=== PATIENT | female | born 1960 | race Caucasian/White ===

== ENCOUNTER → 2022-09-13 13:41 | Outpatient (CLI) | payer OTHER, SELFPAY ==
--- NOTE | 2022-09-13 | DI.MRI.S_ITS ---
PROCEDURE: MR BRAIN (IAC) WWO CON INDICATIONS: Sensorineural hearing loss, bilateral TECHNIQUE: Noncontrast sagittal T1 spin echo, axial FLAIR, axial gradient echo, axial diffusion and ADC through the brain. Axial thin-slice 3D CISS, coronal TruFISP, axial T1 spin echo with fat saturation through the internal auditory canals. After the administration of contrast, thin slice axial and coronal T1 spin echo with fat saturation through the internal auditory canals, and axial and coronal and sagittal T1 spin echo with fat saturation through the brain. COMPARISON: None. FINDINGS: Image quality: Excellent. Cerebellopontine angles: No cerebellopontine angle masses. Inner ear structures appear normally formed. No suspicious enhancement in the internal auditory canal or along the course of the 7th cranial nerve. CSF spaces: Ventricles are normal in size and shape. No extra-axial fluid collections. Basal cisterns are patent. Brain: No intracranial bleeds or mass effects. Dumont-white matter interface is intact. No abnormal intracranial enhancement. Diffusion weighted images demonstrate no acute ischemic insults. Brainstem appears normal. Normal intravascular flow voids are present. Skull and face: Calvarial marrow signal is normal. Orbits appear normal. Incidental note is made of hyperostosis frontalis. This is not considered to be pathologic in a woman of this age. Sinuses: Sinuses and mastoids are clear. IMPRESSION: No significant abnormality is seen. Specifically, no masses or abnormal enhancement are seen within the cerebellopontine angle cisterns or within the internal auditory canals. Dictated by: Anjel Carlos M.D. on 09/13/2022 at 15:07 Approved by: Anjel Carlos M.D. on 09/13/2022 at 15:09
== END ==
PROVIDERS: Family Provider Family Medicine Geriatric Medicine; PCP Physician Assistant Medical; Referring Provider Otolaryngology; Visit Provider Otolaryngology
DX: H90.3 Sensorineural hearing loss, bilateral (principal)
CPT/HCPCS: 70553

== ENCOUNTER → 2023-12-10 09:06 | Outpatient (CLI) | payer MEDICARE, OTHER, SELFPAY ==
[2023-12-10 10:27] LABS: Add Manual Diff / Slide Review NO; Basophils Absolute Auto 100 /uL (0-100); Basophils Percent Auto 0.9 % (0-2); Eosinophils Absolute Auto 400 /uL (0-450); Eosinophils Percent Auto 6.7 % (2-4); Hematocrit 38.9 % (36-46); Hemoglobin 13.7 g/dL (12.0-16.0); Lymphocytes Absolute Auto 1500 /uL (1100-4500); Lymphocytes Percent Auto 23.4 % (25-40); Mean Corpuscular HGB Conc 35.2 % (30-36); Mean Corpuscular Hemoglobin 30.2 PG (26-34); Monocytes Absolute Auto 600 /uL (0-900); Monocytes Percent Auto 9.4 % (3-14); Neutrophils Absolute Auto 3900 /uL (1500-7000); Neutrophils Percent Auto 59.6 % (50-75); Platelet Count 290 X10^3/uL (150-400); Red Blood Cell Count 4.53 X10^6/uL (4.0-5.2); Red Cell Distribution Width 12.6 % (11.6-14.8); White Blood Cell Count 6.6 X10^3/uL (4.5-11.0)
[2023-12-10 10:48] LABS: Hemoglobin A1C% w Est Avg Glu 6.4 % (4.0-6.0)
[2023-12-10 11:08] LABS: Alanine Aminotransferase 27 IU/L (<35); Albumin 4.4 g/dL (3.5-5.0); Albumin Globulin Ratio 1.6 (1.0-2.8); Alkaline Phosphatase 90 U/L (38-126); Aspartate Aminotransferase 25 IU/L (14-36); BUN Creatinine Ratio 17.7 (6-22); Bilirubin Total 0.7 mg/dL (0.2-1.3); Blood Urea Nitrogen 14 mg/dL (7-17); Carbon Dioxide 30 mmol/L (22-32); Chloride 101 mmol/L (98-107); Cholesterol 208 mg/dL (140-199); Estimated Glomerular Filt Rate > 60 mL/min (>60); Globulin 2.8 g/dL (1.7-4.1); Glucose 123 mg/dL (80-110); HDL Cholesterol 55 mg/dL (40-60); HEMOLYSIS < 15 (0-50); LDL Cholesterol Calculated 123 mg/dL (<100); Potassium 3.7 mmol/L (3.4-5.1); Sodium 137 mmol/L (137-145); Total Protein 7.2 g/dL (6.3-8.2); Triglycerides 149 mg/dL (35-150)
[2023-12-10 11:45] LABS: HIV 1 & 2 Ab/Ag 4th Gen Combo NEGATIVE (NEGATIVE); Hep C Virus Ab w/Reflex Quant NEGATIVE s/c (NEGATIVE)
== END ==
PROVIDERS: Family Provider Family Medicine Geriatric Medicine; PCP Family Medicine; Referring Provider Family Medicine; Visit Provider Family Medicine
DX: S76.309A Unspecified injury of muscle, fascia and tendon of the posterior muscle group at thigh level, unspecified thigh, initial encounter (principal); I10 Essential (primary) hypertension; R73.01 Impaired fasting glucose
CPT/HCPCS: 36415; 80053; 80061; 83036; 85025; 86803; 87389

== ENCOUNTER 2024-02-27 07:30 | Outpatient (RCR) | payer MEDICARE, OTHER, SELFPAY ==
--- NOTE | 2024-01-22 15:50 | PT.OIE ---
Current Diagnoses Unspecified injury of muscle, fascia and tendon of the posterior muscle group at thigh level, unspecified thigh, subsequent encounter (01/22/24) Past Medical History (Last Updated 01/17/24 @ 18:50 by Madhuri Diaz) Benign essential HTN Foot pain (~1999) Fracture (~2017) Hearing loss (~2022) History of DVT (deep vein thrombosis) IFG (impaired fasting glucose) Vaginal atrophy (~2022) Vision disorder Past Surgical History (Last Updated 01/17/24 @ 18:50 by Madhuri Diaz) Anesthesia History of knee surgery (~2010) Schatzki's ring (~2012) Status post left partial knee replacement (~2015) Status post right partial knee replacement (~2011) Visit Care Team Role Provider Type Francesca Pastor MD Family Provider Physician Specialty: Family Practice Address: [address], [facility] Email: [email or web address] Jayson Weldon DO Attending Provider Physician Primary Care Provider Referring Provider Specialty: [facility] Address: [address] [place] [address], [address], [facility] Email: [email or web address] Initial Evaluation PT-OP-A Visit Information Start: 01/22/24 07:27 Freq: Status: Active Protocol: Document 01/22/24 08:21 NM (Rec: 01/22/24 09:05 NM [id number]) Out-Patient Physical Therapy Visit Information Visit Information Visit Type Initial Evaluation Visit Note KX after 19 visits Visit Start Time 08:20 Visit Stop Time 09:00 Visit Number 1 Evaluation Information Evaluation Date 01/22/24 PT-OP-B Current Condition Start: 01/22/24 07:27 Freq: Status: Active Protocol: Document 01/22/24 08:21 NM (Rec: 01/22/24 09:05 NM [id number]) Current Condition History of Current Condition Onset Date couple of months Current Complaints pain, mobility History of Current Condition Pt reports pain in R posterior leg from buttock to knee. She reports that it disturbs her sleep, worse with sitting and feels tight. Worse with bending, reaching forward to floor e.g stretching, going upstairs, transitioning from sit>stand (worse with flexion) . Sleeps with a knee pillow. Pt recently moved from Saturday, in , but the pain started after that point. Pt reports back pain with walking (1-1.5 mi) more L sided than R. Denies numbness or tingling. Does not bother her when she walks. Pt reports that the pain is largely worse when sedentary, but improves with movement. Sleep is the most annoying (e. g. rolling over), same equally no matter which side. Pt reports that the pain has not stopped her from doing anything, but it is there. Pt has been trying to stretch (e. g counter top stretch in various positions), which feels better when she does the exercises but it does not make the pain go away; she performs these first in the morning. PMH of high blood pressure, but takes medication and reports well managed. Prior Treatments and Tests Has had PT for other conditions: partial knee replacements Treatment Goals Patient/Caregiver Goals make the pain go away PT-OP-C Subjective Start: 01/22/24 07:27 Freq: Status: Active Protocol: Document 01/22/24 08:21 NM (Rec: 01/22/24 09:05 NM [id number]) OP-PT Subjective Patient Comments Patient Comments Pt agrees to participate in evaluation Patient Questionnaires Lower Extremity Functional Scale LEFS Score 48/80 OP-PT Pain Assessment Location R thigh Pain Location Details buttock>knee Intensity 5 Scale Used Numeric (0 - 10) Description Sharp,Tightness Description- Other shortened Frequency Frequent Pain Duration 20 minutes, better with movement Radiating Location no variation Pain Aggravating Factors Position,Changing Position, Sitting,Stair Climbing Pain Alleviating Factors Heat Other Pain Alleviating Factors moving PT-OP-E Functional Tests Start: 01/22/24 07:27 Freq: Status: Active Protocol: Document 01/22/24 08:21 NM (Rec: 01/22/24 10:21 NM [id number]) Functional Tests Five Times Sit to Stand Test Score 17.9 seconds Comments reports pulling in HS after 3rd rep, speed decreases Other Forward Trunk Flexion Test Name of Test measured finger tip to floor Score 5.5 Comment reports pulling in hamstrings PT-OP-F Manual Assessment Start: 01/22/24 07:27 Freq: Status: Active Protocol: Document 01/22/24 08:21 NM (Rec: 01/22/24 09:05 NM [id number]) Manual Assessments Soft Tissue Assessment Soft Tissue Mobility Assessment AROM knee flex, passive knee flexion with HS Joint Mobility Assessment Joint Mobility Assessment Full hip mobility, slight limitations in trunk AROM PT-OP-G Mobility & Gait Start: 01/22/24 07:27 Freq: Status: Active Protocol: Document 01/22/24 08:21 NM (Rec: 01/22/24 09:05 NM [id number]) OP Gait Assessment Gait Distance (Feet) 200 Gait Deviations General Gait Pattern Antalgic Comments Gait Comments Slight antalgic gait, less stance time on RLE, limitations in R TKE Stair Climbing Evaluation Technique/Endurance Stair Climbing Technique Step Over Step Number of Steps Climbed 4 Stair Climbing Set # Repetitions (reps) 2 Comments Stair Climbing Comments Reproduces hamstring pain with ascent in muscle belly PT-OP-J Posture/Palpation/Skin Start: 01/22/24 07:27 Freq: Status: Active Protocol: Document 01/22/24 08:21 NM (Rec: 01/22/24 09:05 NM [id number]) Palpation Assessment Location R thigh Palpation Details tenderness in glute/piriformis no tenderness along hamstring muscle belly, origin, or insertion PT-OP-K Range of Motion Start: 01/22/24 07:27 Freq: Status: Active Protocol: Document 01/22/24 08:21 NM (Rec: 01/22/24 09:05 NM [id number]) Lumbar Spine Range of Motion Lumbar Spine Active Percentage Flexion 90 Extension 50 Rotation Left 100 Rotation Right 100 Lateral Flexion Left 50 Lateral Flexion Right 50 Comments L low back w/ L lateral flexion, R rotation down R leg Hip Goniometric Range of Motion Hip Right Internal Rotation 20 External Rotation 30 Left Flexion w/Knee Flexed 100 Internal Rotation 28 External Rotation 30 Knee Goniometric Range of Motion Knee Right Flexion Active (degrees) 121 Extension Active (degrees) 2 Extension Passive (degrees) 0 Comments HS 145 deg Left Flexion Active (degrees) 125 Extension Active (degrees) 0 Comments HS 155 deg PT-OP-L Special Tests Start: 01/22/24 07:27 Freq: Status: Active Protocol: Document 01/22/24 08:21 NM (Rec: 01/22/24 09:05 NM [id number]) Special Tests Lumbar Spine Special Tests Straight Leg Raise Test Results - Comments worse w/ head movement Slump Test Results - Comments worse w/ head movement Gan/quadrant Test Results + Comments L Hip Special Tests SUKHWINDER Test Results + Comments anterior groin PT-OP-M Strength Start: 01/22/24 07:27 Freq: Status: Active Protocol: Document 01/22/24 08:21 NM (Rec: 01/22/24 09:05 NM [id number]) Trunk Strength Trunk Manual Muscle Testing Flexion 4 Good Extension 4 Good Rotation Left 4 Good Rotation Right 4 Good Lateral Flexion Left 4 Good Lateral Flexion Right 4 Good Comments R rot painful Hip Strength Hip Manual Muscle Testing Right Flexion (L2) 4 Good Extension (S1) 4- Good- Abduction 4 Good Adduction 4 Good External Rotation 4 Good Internal Rotation 4 Good Left Flexion (L2) 4 Good Extension (S1) 4 Good Abduction 4 Good Adduction 4 Good External Rotation 4 Good Internal Rotation 4 Good Knee Strength Knee Manual Muscle Testing Right Flexion (S2) 4- Good- Extension (L3) 4 Good Comments prone HS 4-/5 and painful; no pain reproduced in sitting Left Flexion (S2) 4 Good Extension (L3) 4 Good PT-OP-T Assessment and Plan Start: 01/22/24 07:27 Freq: Status: Active Protocol: Document 01/22/24 08:21 NM (Rec: 01/22/24 09:05 NM [id number]) Physical Therapy Assessment Rehab Potential Rehabilitation Potential Good Evaluation Complexity Number of Personal Factors/Comorbidities 1-2 Number of Body Systems Impaired 1-2 Clinical Presentation at Evaluation Stable Impairments Impairments Activity Tolerance,Balance, Functional Activities, Functional Mobility,Gait, Integument,Pain,Posture,ROM, Soft Tissue Mobility,Strength, Transfers Other Concerns Barriers to Rehabilitation Pt has had B knees previously partially replaced several years ago. 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 Goals Five Impairment stairs Nursing Home Goal (LTG) Pt will report no limitation in ability to perform stairs due to R thigh pain in order to demonstrate improved functional mobility LTG Duration 12 weeks Four Impairment ROM Bottle Capper Goal (LTG) Pt will improve R knee extension to at least 0 deg in order to demonstrate improved hamstring length for gait, comfort, and QOL LTG Duration 12 weeks Three Impairment squats Bottle Capper Goal (LTG) Pt will be able to perform at least 10 bilateral squats or 5x STS test without pain in order to demonstrate improvement in symptoms, activity tolerance, and functional mobility for ADLs/ recreational tasks LTG Duration 12 weeks Two Impairment activity tolerance Impairment LEFS 48/80 Bottle Capper Goal (LTG) Pt will improve LEFS score >57 /80 (1 MCID) in order to demonstrate improved activity tolerance and symptom management LTG Duration 12 weeks One Impairment sleep Impairment reports pain with sleeping, rolling over in bed Short Term Goal (STG) Pt will report no pain in her R thigh when rolling over in bed at least 4/7 days per week in order to improve sleep quality and QOL STG Duration 6 weeks Nursing Home Goal (LTG) Pt will report no disruption to her sleep due to R thigh pain at least 4/7 days per week in order to improve sleep quality/QOL and improved symptom management LTG Duration 12 weeks Assessment Summary Assessment Pt is a 63 y.o. female presenting with subacute R hamstring pain for several months with unknown mechanism of injury. Her pain is primarily along the R hamstring muscle belly. She has attempted stretching without success in symptom reduction. Pt's symptoms are reproduced with active knee flexion, resisted knee flexion in prone, ascending stairs, and sit to stand (flexion portion). Pt does not have pain with resisted knee flexion when seated. She is not tender to palpation at the hamstring proximally or distally, only at the glute. She is currently lakcing B hamstring length and has small limitations in R knee extension, indicating muscle tightness. Pt's symptoms are consistent with a hamstring strain. Pt also has concurrent intermittent low back pain that is likely correlated; she has painful limitations in lumbar ROM and with resisted motions, in addition to pain reproduction with 3D testing. PT educated pt on exam findings and plan of care, creating treatment goals with pt. Pt would benefit from skilled PT for symptom management and progressive strengthening in order to improve activity tolerance and return to PLOF. Physical Therapy Plan Frequency and Duration Frequency of Treatment 1-2x/wk Duration of treatment (weeks) 12 Plan of Care Start Date 01/22/24 Plan of Care End Date 04/17/24 Therapeutic Interventions Therapeutic Interventions Balance Training,Gait Training ,Home Exercise Program,Joint Mobilizations,Manual Therapy, Neuromuscular Re-education, Orthotic/Prosthetic Management ,Patient/Caregiver Education, Self-Care/Home Management, Sensory Integration,Soft Tissue Mobilization,Taping, Therapeutic Activities, Therapeutic Exercises Modalities Cold Pack/Ice Massage,Electric Stimulation,Hot Packs, Ultrasound Next Visit Focus/Plan Next Note Type Treatment Note Next Visit Plan Education on log rolling, symptom management Modalities for pain management ; trial ultrasound STM: HS as needed (glute if needed too), myofascial release Flexibility: Ishan stretch, G /S stretch, hip ER stretch into flex if tolerated, AAROM/ AROM hip/knee flex, restore full hip flex (ant and post glides Strength: low DL bridge (toes elevated if able) > progress height (then add band for abd, ball for add, hip thrust), s/ l hip abd, calf raise, HS isometrics in seated if needed , SLR, HSC antigravity, hip ext antigravity, wall slides POC: hip/glute strengthening No stretching HS but nerve glides ok
--- NOTE | 2024-01-22 15:51 | PT.OPPOC ---
Physical, Occupational & Speech Therapy At [facility] Current Diagnoses Unspecified injury of muscle, fascia and tendon of the posterior muscle group at thigh level, unspecified thigh, subsequent encounter (01/22/24) Visit Care Team Role Provider Type Francesca Pastor MD Family Provider Physician Specialty: Family Practice Address: [address], [place], [address] Email: [email or web address] Jayson Weldon DO Attending Provider Physician Primary Care Provider Referring Provider Specialty: [facility] Address: [address] [place] [address], [facility] [address], [place], [address] Email: [email or web address] Plan Of Care PT-OP-T Assessment and Plan Start: 01/22/24 07:27 Freq: Status: Active Protocol: Document 01/22/24 08:21 NM (Rec: 01/22/24 09:05 NM [id number]) Physical Therapy Assessment Rehab Potential Rehabilitation Potential Good Evaluation Complexity Number of Personal Factors/Comorbidities 1-2 Number of Body Systems Impaired 1-2 Clinical Presentation at Evaluation Stable Impairments Impairments Activity Tolerance,Balance, Functional Activities, Functional Mobility,Gait, Integument,Pain,Posture,ROM, Soft Tissue Mobility,Strength, Transfers Other Concerns Barriers to Rehabilitation Pt has had B knees previously partially replaced several years ago. 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 Goals Five Impairment stairs Instrument Installer Goal (LTG) Pt will report no limitation in ability to perform stairs due to R thigh pain in order to demonstrate improved functional mobility LTG Duration 12 weeks Four Impairment ROM Alf Goal (LTG) Pt will improve R knee extension to at least 0 deg in order to demonstrate improved hamstring length for gait, comfort, and QOL LTG Duration 12 weeks Three Impairment squats Alf Goal (LTG) Pt will be able to perform at least 10 bilateral squats or 5x STS test without pain in order to demonstrate improvement in symptoms, activity tolerance, and functional mobility for ADLs/ recreational tasks LTG Duration 12 weeks Two Impairment activity tolerance Impairment LEFS 48/80 Alf Goal (LTG) Pt will improve LEFS score >57 /80 (1 MCID) in order to demonstrate improved activity tolerance and symptom management LTG Duration 12 weeks One Impairment sleep Impairment reports pain with sleeping, rolling over in bed Short Term Goal (STG) Pt will report no pain in her R thigh when rolling over in bed at least 4/7 days per week in order to improve sleep quality and QOL STG Duration 6 weeks Alf Goal (LTG) Pt will report no disruption to her sleep due to R thigh pain at least 4/7 days per week in order to improve sleep quality/QOL and improved symptom management LTG Duration 12 weeks Assessment Summary Assessment Pt is a 63 y.o. female presenting with subacute R hamstring pain for several months with unknown mechanism of injury. Her pain is primarily along the R hamstring muscle belly. She has attempted stretching without success in symptom reduction. Pt's symptoms are reproduced with active knee flexion, resisted knee flexion in prone, ascending stairs, and sit to stand (flexion portion). Pt does not have pain with resisted knee flexion when seated. She is not tender to palpation at the hamstring proximally or distally, only at the glute. She is currently lakcing B hamstring length and has small limitations in R knee extension, indicating muscle tightness. Pt's symptoms are consistent with a hamstring strain. Pt also has concurrent intermittent low back pain that is likely correlated; she has painful limitations in lumbar ROM and with resisted motions, in addition to pain reproduction with 3D testing. PT educated pt on exam findings and plan of care, creating treatment goals with pt. Pt would benefit from skilled PT for symptom management and progressive strengthening in order to improve activity tolerance and return to PLOF. Physical Therapy Plan Frequency and Duration Frequency of Treatment 1-2x/wk Duration of treatment (weeks) 12 Plan of Care Start Date 01/22/24 Plan of Care End Date 04/17/24 Therapeutic Interventions Therapeutic Interventions Balance Training,Gait Training ,Home Exercise Program,Joint Mobilizations,Manual Therapy, Neuromuscular Re-education, Orthotic/Prosthetic Management ,Patient/Caregiver Education, Self-Care/Home Management, Sensory Integration,Soft Tissue Mobilization,Taping, Therapeutic Activities, Therapeutic Exercises Modalities Cold Pack/Ice Massage,Electric Stimulation,Hot Packs, Ultrasound Next Visit Focus/Plan Next Note Type Treatment Note Next Visit Plan Education on log rolling, symptom management Modalities for pain management ; trial ultrasound STM: HS as needed (glute if needed too), myofascial release Flexibility: Ishan stretch, G /S stretch, hip ER stretch into flex if tolerated, AAROM/ AROM hip/knee flex, restore full hip flex (ant and post glides Strength: low DL bridge (toes elevated if able) > progress height (then add band for abd, ball for add, hip thrust), s/ l hip abd, calf raise, HS isometrics in seated if needed , SLR, HSC antigravity, hip ext antigravity, wall slides POC: hip/glute strengthening No stretching HS but nerve glides ok Plan of Care Dates Plan of Care Start Date 01/22/24 Plan of Care End Date 04/17/24 Electronically Signed by: Janice Mckenzie, PT 01/23/24 1022 If you are in agreement with this Plan of Care, please return a signed and dated copy. I have reviewed this Plan of Care and certify that the skilled therapy services above are required to meet the patient?s needs. Physician Signature Date Printed Name and Credentials Clinical Instructor Signature Printed Name and Credentials
--- NOTE | 2024-01-24 13:11 | PT.OTN ---
Current Diagnoses Unspecified injury of muscle, fascia and tendon of the posterior muscle group at thigh level, unspecified thigh, subsequent encounter (01/24/24) Physical Therapy Treatment Note PT-OP-A Visit Information Start: 01/22/24 07:27 Freq: Status: Active Protocol: Document 01/24/24 09:05 NM (Rec: 01/24/24 09:49 NM [id number]) Out-Patient Physical Therapy Visit Information Visit Information Visit Type Treatment Note Visit Note KX after 19 visits Visit Start Time 09:03 Visit Stop Time 09:45 Visit Number 2 Evaluation Information Evaluation Date 01/22/24 PT-OP-B Current Condition Start: 01/22/24 07:27 Freq: Status: Active Protocol: Document 01/22/24 08:21 NM (Rec: 01/22/24 09:05 NM [id number]) Current Condition History of Current Condition Onset Date couple of months Current Complaints pain, mobility History of Current Condition Pt reports pain in R posterior leg from buttock to knee. She reports that it disturbs her sleep, worse with sitting and feels tight. Worse with bending, reaching forward to floor e.g stretching, going upstairs, transitioning from sit>stand (worse with flexion) . Sleeps with a knee pillow. Pt recently moved from [place], in , but the pain started after that point. Pt reports back pain with walking (1-1.5 mi) more L sided than R. Denies numbness or tingling. Does not bother her when she walks. Pt reports that the pain is largely worse when sedentary, but improves with movement. Sleep is the most annoying (e. g. rolling over), same equally no matter which side. Pt reports that the pain has not stopped her from doing anything, but it is there. Pt has been trying to stretch (e. g counter top stretch in various positions), which feels better when she does the exercises but it does not make the pain go away; she performs these first in the morning. PMH of high blood pressure, but takes medication and reports well managed. Prior Treatments and Tests Has had PT for other conditions: partial knee replacements Treatment Goals Patient/Caregiver Goals make the pain go away PT-OP-C Subjective Start: 01/22/24 07:27 Freq: Status: Active Protocol: Document 01/24/24 09:05 NM (Rec: 01/24/24 09:49 NM [id number]) OP-PT Subjective Patient Comments Patient Comments Pt reports 4/10 hamstring pain , 7/10 last night. Did a cooking class yesterday with a lot of standing, which was hard. No increased pain or soreness after PT-OP-E Functional Tests Start: 01/22/24 07:27 Freq: Status: Active Protocol: Document 01/22/24 08:21 NM (Rec: 01/22/24 10:21 NM [id number]) Functional Tests Five Times Sit to Stand Test Score 17.9 seconds Comments reports pulling in HS after 3rd rep, speed decreases Other Forward Trunk Flexion Test Name of Test measured finger tip to floor Score 5.5 Comment reports pulling in hamstrings PT-OP-F Manual Assessment Start: 01/22/24 07:27 Freq: Status: Active Protocol: Document 01/22/24 08:21 NM (Rec: 01/22/24 09:05 NM [id number]) Manual Assessments Soft Tissue Assessment Soft Tissue Mobility Assessment AROM knee flex, passive knee flexion with HS Joint Mobility Assessment Joint Mobility Assessment Full hip mobility, slight limitations in trunk AROM PT-OP-G Mobility & Gait Start: 01/22/24 07:27 Freq: Status: Active Protocol: Document 01/22/24 08:21 NM (Rec: 01/22/24 09:05 NM [id number]) OP Gait Assessment Gait Distance (Feet) 200 Gait Deviations General Gait Pattern Antalgic Comments Gait Comments Slight antalgic gait, less stance time on RLE, limitations in R TKE Stair Climbing Evaluation Technique/Endurance Stair Climbing Technique Step Over Step Number of Steps Climbed 4 Stair Climbing Set # Repetitions (reps) 2 Comments Stair Climbing Comments Reproduces hamstring pain with ascent in muscle belly PT-OP-J Posture/Palpation/Skin Start: 01/22/24 07:27 Freq: Status: Active Protocol: Document 01/22/24 08:21 NM (Rec: 01/22/24 09:05 NM [id number]) Palpation Assessment Location R thigh Palpation Details tenderness in glute/piriformis no tenderness along hamstring muscle belly, origin, or insertion PT-OP-K Range of Motion Start: 01/22/24 07:27 Freq: Status: Active Protocol: Document 01/22/24 08:21 NM (Rec: 01/22/24 09:05 NM [id number]) Lumbar Spine Range of Motion Lumbar Spine Active Percentage Flexion 90 Extension 50 Rotation Left 100 Rotation Right 100 Lateral Flexion Left 50 Lateral Flexion Right 50 Comments L low back w/ L lateral flexion, R rotation down R leg Hip Goniometric Range of Motion Hip Right Internal Rotation 20 External Rotation 30 Left Flexion w/Knee Flexed 100 Internal Rotation 28 External Rotation 30 Knee Goniometric Range of Motion Knee Right Flexion Active (degrees) 121 Extension Active (degrees) 2 Extension Passive (degrees) 0 Comments HS 145 deg Left Flexion Active (degrees) 125 Extension Active (degrees) 0 Comments HS 155 deg PT-OP-L Special Tests Start: 01/22/24 07:27 Freq: Status: Active Protocol: Document 01/22/24 08:21 NM (Rec: 01/22/24 09:05 NM [id number]) Special Tests Lumbar Spine Special Tests Straight Leg Raise Test Results - Comments worse w/ head movement Slump Test Results - Comments worse w/ head movement Gan/quadrant Test Results + Comments L Hip Special Tests SUKHWINDER Test Results + Comments anterior groin PT-OP-M Strength Start: 01/22/24 07:27 Freq: Status: Active Protocol: Document 01/22/24 08:21 NM (Rec: 01/22/24 09:05 NM [id number]) Trunk Strength Trunk Manual Muscle Testing Flexion 4 Good Extension 4 Good Rotation Left 4 Good Rotation Right 4 Good Lateral Flexion Left 4 Good Lateral Flexion Right 4 Good Comments R rot painful Hip Strength Hip Manual Muscle Testing Right Flexion (L2) 4 Good Extension (S1) 4- Good- Abduction 4 Good Adduction 4 Good External Rotation 4 Good Internal Rotation 4 Good Left Flexion (L2) 4 Good Extension (S1) 4 Good Abduction 4 Good Adduction 4 Good External Rotation 4 Good Internal Rotation 4 Good Knee Strength Knee Manual Muscle Testing Right Flexion (S2) 4- Good- Extension (L3) 4 Good Comments prone HS 4-/5 and painful; no pain reproduced in sitting Left Flexion (S2) 4 Good Extension (L3) 4 Good PT-OP-Q Treatments Start: 01/22/24 07:27 Freq: Status: Active Protocol: Document 01/24/24 09:05 NM (Rec: 01/24/24 09:49 NM [id number]) Therapeutic Exercises Supine Exercises stretching Supine Exercise Name 1. figure 4 w/ knee flex, 2. ishan Side bilateral Reps/Minutes 1x60 ea Comments reports good stretch; tight rectus femoris bilaterally heel slide Supine Exercise Name for knee flexion AROM Side right Resistance AROM Reps/Minutes 2x10 Comments feels working, no pain with AROM bridge Supine Exercise Name DL bridge with toes elevated Reps/Minutes 3x10 Comments started low height and progressed ROM; edu on hold Prone Exercises hip extension Side bilateral Equipment Used feet off table Reps/Minutes 2x10 Comments min pain in R HS so d/c for now; harder Sidelying Exercises hip abduction Side bilateral Resistance AROM Reps/Minutes 2x10 with 1 pause Comments R fatiguing, pain free Therapeutic Activity Therapeutic Activity floor transfer Reps/Minutes 1 rep Comments LLE leading from 07/30 kneel for pt to be able to perform exercises at home, performed without increased pain in R hamstring with LLE leading log roll Reps/Minutes 4 reps, including rolling and transfer to EOB Comments Educated on use of pillow to maintain knee/hip/shoulder alignment. Performed several repetitions, minimal cueing to maintain alignment of trunk/ hips and limit segmental rolling Manual Therapy Treatment Soft Tissue Mobilization R hamstring Body Location hamstring and glute/piriformis Mobilization Type Oscillations,Rolling,Strumming Intensity/Depth Moderate Body Position Prone Comments Hips and shins on pillows. Good response to moderate soft tissue mobilization of hamstrings, reports no increased discomfort or tenderness at hamstrings, parish with proximal <> distal mobiliztion of muscle belly. Tenderness reported at R glutes/piriformis, improved/ lessened with superficial soft tissue mobilization to area Self-Care/Home Management Treatment Education Patient Education Home Exercise Program Other Education HEP: heel slides supine AROM, supine hip ER stretch, sidelying hip abduction, glute bridge with progressions Educated on leading with LLE on stairs temporarily for symptom reduction on ascending stairs PT-OP-T Assessment and Plan Start: 01/22/24 07:27 Freq: Status: Active Protocol: Document 01/24/24 09:05 NM (Rec: 01/24/24 09:49 NM [id number]) Physical Therapy Assessment Goals Five Impairment stairs Precipitation Equipment Tender Goal (LTG) Pt will report no limitation in ability to perform stairs due to R thigh pain in order to demonstrate improved functional mobility LTG Duration 12 weeks Four Impairment ROM Fdc Goal (LTG) Pt will improve R knee extension to at least 0 deg in order to demonstrate improved hamstring length for gait, comfort, and QOL LTG Duration 12 weeks Three Impairment squats Fdc Goal (LTG) Pt will be able to perform at least 10 bilateral squats or 5x STS test without pain in order to demonstrate improvement in symptoms, activity tolerance, and functional mobility for ADLs/ recreational tasks LTG Duration 12 weeks Two Impairment activity tolerance Impairment LEFS 48/80 Fdc Goal (LTG) Pt will improve LEFS score >57 /80 (1 MCID) in order to demonstrate improved activity tolerance and symptom management LTG Duration 12 weeks One Impairment sleep Impairment reports pain with sleeping, rolling over in bed Short Term Goal (STG) Pt will report no pain in her R thigh when rolling over in bed at least 4/7 days per week in order to improve sleep quality and QOL STG Duration 6 weeks Precipitation Equipment Tender Goal (LTG) Pt will report no disruption to her sleep due to R thigh pain at least 4/7 days per week in order to improve sleep quality/QOL and improved symptom management LTG Duration 12 weeks Assessment Summary Assessment Pt tolerated session well, no increased R hamstring pain. Pt has good tolerance for hamstring and glute soft tissue mobilization, reporting good feedback for pain reduction. Initiated knee flexion AROM and isolated hamstring strengthening. Trialed elongated hip extension, but pt reports increased symptoms at knee. Educated on log roll, sleeping position, and how to perform floor transfers without RLE stress as pt needs for ADLs. Pt would benefit from skilled PT for progressive R hamstring mobility and strengthening in order to improve symptom management and improve ADL/ activity tolerance and QOL. Physical Therapy Plan Frequency and Duration Frequency of Treatment 1-2x/wk Duration of treatment (weeks) 12 Plan of Care Start Date 01/22/24 Plan of Care End Date 04/17/24 Therapeutic Interventions Therapeutic Interventions Balance Training,Gait Training ,Home Exercise Program,Joint Mobilizations,Manual Therapy, Neuromuscular Re-education, Orthotic/Prosthetic Management ,Patient/Caregiver Education, Self-Care/Home Management, Sensory Integration,Soft Tissue Mobilization,Taping, Therapeutic Activities, Therapeutic Exercises Modalities Cold Pack/Ice Massage,Electric Stimulation,Hot Packs, Ultrasound Next Visit Focus/Plan Next Note Type Treatment Note Next Visit Plan Modalities for pain management ; trial ultrasound if needed STM: HS as needed (glute if needed too), myofascial release Flexibility: Ishan stretch, G /S stretch, hip ER stretch into flex if tolerated, AAROM/ AROM hip/knee flex, restore full hip flex (ant and post glides Strength: DL bridge (toes elevated if able) > progress height (trial isometric if neded,then add band for abd, ball for add, hip thrust), s/l hip abd, calf raise, SLR, HSC antigravity, hip ext antigravity, wall slides POC: hip/glute strengthening No stretching HS but nerve glides ok
--- NOTE | 2024-01-27 10:31 | PT.OTN ---
Current Diagnoses Unspecified injury of muscle, fascia and tendon of the posterior muscle group at thigh level, unspecified thigh, subsequent encounter (01/27/24) Physical Therapy Treatment Note PT-OP-A Visit Information Start: 01/22/24 07:27 Freq: Status: Active Protocol: Document 01/27/24 09:49 NM (Rec: 01/27/24 10:31 NM [id number]) Out-Patient Physical Therapy Visit Information Visit Information Visit Type Treatment Note Visit Note KX after 19 visits Visit Start Time 09:52 Visit Stop Time 10:30 Visit Number 3 Evaluation Information Evaluation Date 01/22/24 PT-OP-B Current Condition Start: 01/22/24 07:27 Freq: Status: Active Protocol: Document 01/22/24 08:21 NM (Rec: 01/22/24 09:05 NM [id number]) Current Condition History of Current Condition Onset Date couple of months Current Complaints pain, mobility History of Current Condition Pt reports pain in R posterior leg from buttock to knee. She reports that it disturbs her sleep, worse with sitting and feels tight. Worse with bending, reaching forward to floor e.g stretching, going upstairs, transitioning from sit>stand (worse with flexion) . Sleeps with a knee pillow. Pt recently moved from [place], in , but the pain started after that point. Pt reports back pain with walking (1-1.5 mi) more L sided than R. Denies numbness or tingling. Does not bother her when she walks. Pt reports that the pain is largely worse when sedentary, but improves with movement. Sleep is the most annoying (e. g. rolling over), same equally no matter which side. Pt reports that the pain has not stopped her from doing anything, but it is there. Pt has been trying to stretch (e. g counter top stretch in various positions), which feels better when she does the exercises but it does not make the pain go away; she performs these first in the morning. PMH of high blood pressure, but takes medication and reports well managed. Prior Treatments and Tests Has had PT for other conditions: partial knee replacements Treatment Goals Patient/Caregiver Goals make the pain go away PT-OP-C Subjective Start: 01/22/24 07:27 Freq: Status: Active Protocol: Document 01/27/24 09:49 NM (Rec: 01/27/24 10:31 NM [id number]) OP-PT Subjective Patient Comments Patient Comments Pt late today. Reports that her hamstring is feeling pretty good. She reports that she has some numbness after standing for two hours on , on anterior foster and foot. Has been doing stairs with LLE first. States that log rolling helped but discomfort is still present, limited by shoulder on opposite side. PT-OP-E Functional Tests Start: 01/22/24 07:27 Freq: Status: Active Protocol: Document 01/22/24 08:21 NM (Rec: 01/22/24 10:21 NM [id number]) Functional Tests Five Times Sit to Stand Test Score 17.9 seconds Comments reports pulling in HS after 3rd rep, speed decreases Other Forward Trunk Flexion Test Name of Test measured finger tip to floor Score 5.5 Comment reports pulling in hamstrings PT-OP-F Manual Assessment Start: 01/22/24 07:27 Freq: Status: Active Protocol: Document 01/22/24 08:21 NM (Rec: 01/22/24 09:05 NM [id number]) Manual Assessments Soft Tissue Assessment Soft Tissue Mobility Assessment AROM knee flex, passive knee flexion with HS Joint Mobility Assessment Joint Mobility Assessment Full hip mobility, slight limitations in trunk AROM PT-OP-G Mobility & Gait Start: 01/22/24 07:27 Freq: Status: Active Protocol: Document 01/22/24 08:21 NM (Rec: 01/22/24 09:05 NM [id number]) OP Gait Assessment Gait Distance (Feet) 200 Gait Deviations General Gait Pattern Antalgic Comments Gait Comments Slight antalgic gait, less stance time on RLE, limitations in R TKE Stair Climbing Evaluation Technique/Endurance Stair Climbing Technique Step Over Step Number of Steps Climbed 4 Stair Climbing Set # Repetitions (reps) 2 Comments Stair Climbing Comments Reproduces hamstring pain with ascent in muscle belly PT-OP-J Posture/Palpation/Skin Start: 01/22/24 07:27 Freq: Status: Active Protocol: Document 01/22/24 08:21 NM (Rec: 01/22/24 09:05 NM [id number]) Palpation Assessment Location R thigh Palpation Details tenderness in glute/piriformis no tenderness along hamstring muscle belly, origin, or insertion PT-OP-K Range of Motion Start: 01/22/24 07:27 Freq: Status: Active Protocol: Document 01/22/24 08:21 NM (Rec: 01/22/24 09:05 NM [id number]) Lumbar Spine Range of Motion Lumbar Spine Active Percentage Flexion 90 Extension 50 Rotation Left 100 Rotation Right 100 Lateral Flexion Left 50 Lateral Flexion Right 50 Comments L low back w/ L lateral flexion, R rotation down R leg Hip Goniometric Range of Motion Hip Right Internal Rotation 20 External Rotation 30 Left Flexion w/Knee Flexed 100 Internal Rotation 28 External Rotation 30 Knee Goniometric Range of Motion Knee Right Flexion Active (degrees) 121 Extension Active (degrees) 2 Extension Passive (degrees) 0 Comments HS 145 deg Left Flexion Active (degrees) 125 Extension Active (degrees) 0 Comments HS 155 deg PT-OP-L Special Tests Start: 01/22/24 07:27 Freq: Status: Active Protocol: Document 01/22/24 08:21 NM (Rec: 01/22/24 09:05 NM [id number]) Special Tests Lumbar Spine Special Tests Straight Leg Raise Test Results - Comments worse w/ head movement Slump Test Results - Comments worse w/ head movement Gan/quadrant Test Results + Comments L Hip Special Tests SUKHWINDER Test Results + Comments anterior groin PT-OP-M Strength Start: 01/22/24 07:27 Freq: Status: Active Protocol: Document 01/22/24 08:21 NM (Rec: 01/22/24 09:05 NM [id number]) Trunk Strength Trunk Manual Muscle Testing Flexion 4 Good Extension 4 Good Rotation Left 4 Good Rotation Right 4 Good Lateral Flexion Left 4 Good Lateral Flexion Right 4 Good Comments R rot painful Hip Strength Hip Manual Muscle Testing Right Flexion (L2) 4 Good Extension (S1) 4- Good- Abduction 4 Good Adduction 4 Good External Rotation 4 Good Internal Rotation 4 Good Left Flexion (L2) 4 Good Extension (S1) 4 Good Abduction 4 Good Adduction 4 Good External Rotation 4 Good Internal Rotation 4 Good Knee Strength Knee Manual Muscle Testing Right Flexion (S2) 4- Good- Extension (L3) 4 Good Comments prone HS 4-/5 and painful; no pain reproduced in sitting Left Flexion (S2) 4 Good Extension (L3) 4 Good PT-OP-Q Treatments Start: 01/22/24 07:27 Freq: Status: Active Protocol: Document 01/27/24 09:49 NM (Rec: 01/27/24 10:31 NM [id number]) Therapeutic Exercises Supine Exercises HS isometric Supine Exercise Name hooklying with feet on wall Side right Resistance submaximal Reps/Minutes 5x5 hold at 90/90, then walk up feet to 120 deg flexion 5x5 hold Comments pain free SAQ Supine Exercise Name for TKE Side right Equipment Used medium ball under knee for tactile cue Reps/Minutes 20x2 Comments lacking 3 deg ext prior stretching Supine Exercise Name 1. figure 4 w/ knee&hip flex, 2. ishan Side bilateral Reps/Minutes 1x60 ea Comments continues to have tight rectus femoris; good feedback with stretch heel slide Supine Exercise Name for knee flexion AROM Side right Resistance AROM Reps/Minutes 2x10 with 2 hold Comments pain free with AROM bridge Supine Exercise Name DL bridge with toes elevated Reps/Minutes 10x10 hold Comments full ROM; pain free in HS/back /glutes, cued ppt Prone Exercises hamstring curl Side right Resistance AROM Reps/Minutes 2x10 Comments tiring, pain free Sidelying Exercises hip abduction Sidelying Exercise Name with hip IR and ankle DF Side bilateral Resistance AROM Reps/Minutes 15 with 3 hold Comments R fatiguing, pain free Standing Exercises TKE Side right Equipment Used medium blue ball behind knee Reps/Minutes 10x5 Comments pain free PT-OP-T Assessment and Plan Start: 01/22/24 07:27 Freq: Status: Active Protocol: Document 01/27/24 09:49 NM (Rec: 01/27/24 10:31 NM [id number]) Physical Therapy Assessment Goals Five Impairment stairs Spot Facer Goal (LTG) Pt will report no limitation in ability to perform stairs due to R thigh pain in order to demonstrate improved functional mobility LTG Duration 12 weeks Four Impairment ROM Spot Facer Goal (LTG) Pt will improve R knee extension to at least 0 deg in order to demonstrate improved hamstring length for gait, comfort, and QOL LTG Duration 12 weeks Three Impairment squats Spot Facer Goal (LTG) Pt will be able to perform at least 10 bilateral squats or 5x STS test without pain in order to demonstrate improvement in symptoms, activity tolerance, and functional mobility for ADLs/ recreational tasks LTG Duration 12 weeks Two Impairment activity tolerance Impairment LEFS 48/80 Spot Facer Goal (LTG) Pt will improve LEFS score >57 /80 (1 MCID) in order to demonstrate improved activity tolerance and symptom management LTG Duration 12 weeks One Impairment sleep Impairment reports pain with sleeping, rolling over in bed Short Term Goal (STG) Pt will report no pain in her R thigh when rolling over in bed at least 4/7 days per week in order to improve sleep quality and QOL STG Duration 6 weeks [facility] Goal (LTG) Pt will report no disruption to her sleep due to R thigh pain at least 4/7 days per week in order to improve sleep quality/QOL and improved symptom management LTG Duration 12 weeks Assessment Summary Assessment Pt tolerated session well and was pain free in hamstring/ back during activities. Progressed bridge to 10 second isometric hold with toes elevated for analgesic affect in shortened position. Trialed lengthened position in isometric hold at wall, which pt able to perform with good muscle activation and without pain. Continued with hip strengthening to improve global lumbopelvic stability. Pt lacking 3 deg of R knee extension, so initiated SAQ and TKE in standing to improve knee extension and passively lengthen her R hamstring. Pt would benefit from skilled PT for global hip strengthening and progressive R hamstring loading/ROM in order to improve symptom management and activity tolerance. Physical Therapy Plan Frequency and Duration Frequency of Treatment 1-2x/wk Duration of treatment (weeks) 12 Plan of Care Start Date 01/22/24 Plan of Care End Date 04/17/24 Therapeutic Interventions Therapeutic Interventions Balance Training,Gait Training ,Home Exercise Program,Joint Mobilizations,Manual Therapy, Neuromuscular Re-education, Orthotic/Prosthetic Management ,Patient/Caregiver Education, Self-Care/Home Management, Sensory Integration,Soft Tissue Mobilization,Taping, Therapeutic Activities, Therapeutic Exercises Modalities Cold Pack/Ice Massage,Electric Stimulation,Hot Packs, Ultrasound Next Visit Focus/Plan Next Note Type Treatment Note Next Visit Plan Modalities for pain management ; trial ultrasound if needed STM: HS as needed (glute if needed too), myofascial release Flexibility: Ishan stretch, G /S stretch, hip ER stretch into flex if tolerated, AAROM/ AROM hip/knee flex, restore full hip flex (ant and post glides Strength: DL bridge (toes elevated if able) > progress to add band for abd, ball for add, hip thrust), s/l hip abd, calf raise, SLR, HSC antigravity, hip ext antigravity, wall slides, wall HS heel dig isometric POC: hip/glute strengthening No stretching HS but nerve glides ok
--- NOTE | 2024-02-03 15:27 | PT.OTN ---
Current Diagnoses Unspecified injury of muscle, fascia and tendon of the posterior muscle group at thigh level, unspecified thigh, subsequent encounter (02/03/24) Physical Therapy Treatment Note PT-OP-A Visit Information Start: 01/22/24 07:27 Freq: Status: Active Protocol: Document 02/03/24 14:35 NM (Rec: 02/03/24 15:27 NM [id number]) Out-Patient Physical Therapy Visit Information Visit Information Visit Type Treatment Note Visit Note KX after 19 visits Visit Start Time 14:35 Visit Stop Time 15:15 Visit Number 4 PT-OP-B Current Condition Start: 01/22/24 07:27 Freq: Status: Active Protocol: Document 01/22/24 08:21 NM (Rec: 01/22/24 09:05 NM [id number]) Current Condition History of Current Condition Onset Date couple of months Current Complaints pain, mobility History of Current Condition Pt reports pain in R posterior leg from buttock to knee. She reports that it disturbs her sleep, worse with sitting and feels tight. Worse with bending, reaching forward to floor e.g stretching, going upstairs, transitioning from sit>stand (worse with flexion) . Sleeps with a knee pillow. Pt recently moved from [place], in , but the pain started after that point. Pt reports back pain with walking (1-1.5 mi) more L sided than R. Denies numbness or tingling. Does not bother her when she walks. Pt reports that the pain is largely worse when sedentary, but improves with movement. Sleep is the most annoying (e. g. rolling over), same equally no matter which side. Pt reports that the pain has not stopped her from doing anything, but it is there. Pt has been trying to stretch (e. g counter top stretch in various positions), which feels better when she does the exercises but it does not make the pain go away; she performs these first in the morning. PMH of high blood pressure, but takes medication and reports well managed. Prior Treatments and Tests Has had PT for other conditions: partial knee replacements Treatment Goals Patient/Caregiver Goals make the pain go away PT-OP-C Subjective Start: 01/22/24 07:27 Freq: Status: Active Protocol: Document 02/03/24 14:35 NM (Rec: 02/03/24 15:27 NM [id number]) OP-PT Subjective Patient Comments Patient Comments Pt reports that she felt good after last session, no soreness. Has been doing HEP. States forgot to do bridge with feet extended away from body PT-OP-E Functional Tests Start: 01/22/24 07:27 Freq: Status: Active Protocol: Document 01/22/24 08:21 NM (Rec: 01/22/24 10:21 NM [id number]) Functional Tests Five Times Sit to Stand Test Score 17.9 seconds Comments reports pulling in HS after 3rd rep, speed decreases Other Forward Trunk Flexion Test Name of Test measured finger tip to floor Score 5.5 Comment reports pulling in hamstrings PT-OP-F Manual Assessment Start: 01/22/24 07:27 Freq: Status: Active Protocol: Document 01/22/24 08:21 NM (Rec: 01/22/24 09:05 NM [id number]) Manual Assessments Soft Tissue Assessment Soft Tissue Mobility Assessment AROM knee flex, passive knee flexion with HS Joint Mobility Assessment Joint Mobility Assessment Full hip mobility, slight limitations in trunk AROM PT-OP-G Mobility & Gait Start: 01/22/24 07:27 Freq: Status: Active Protocol: Document 01/22/24 08:21 NM (Rec: 01/22/24 09:05 NM [id number]) OP Gait Assessment Gait Distance (Feet) 200 Gait Deviations General Gait Pattern Antalgic Comments Gait Comments Slight antalgic gait, less stance time on RLE, limitations in R TKE Stair Climbing Evaluation Technique/Endurance Stair Climbing Technique Step Over Step Number of Steps Climbed 4 Stair Climbing Set # Repetitions (reps) 2 Comments Stair Climbing Comments Reproduces hamstring pain with ascent in muscle belly PT-OP-J Posture/Palpation/Skin Start: 01/22/24 07:27 Freq: Status: Active Protocol: Document 01/22/24 08:21 NM (Rec: 01/22/24 09:05 NM [id number]) Palpation Assessment Location R thigh Palpation Details tenderness in glute/piriformis no tenderness along hamstring muscle belly, origin, or insertion PT-OP-K Range of Motion Start: 01/22/24 07:27 Freq: Status: Active Protocol: Document 01/22/24 08:21 NM (Rec: 01/22/24 09:05 NM [id number]) Lumbar Spine Range of Motion Lumbar Spine Active Percentage Flexion 90 Extension 50 Rotation Left 100 Rotation Right 100 Lateral Flexion Left 50 Lateral Flexion Right 50 Comments L low back w/ L lateral flexion, R rotation down R leg Hip Goniometric Range of Motion Hip Right Internal Rotation 20 External Rotation 30 Left Flexion w/Knee Flexed 100 Internal Rotation 28 External Rotation 30 Knee Goniometric Range of Motion Knee Right Flexion Active (degrees) 121 Extension Active (degrees) 2 Extension Passive (degrees) 0 Comments HS 145 deg Left Flexion Active (degrees) 125 Extension Active (degrees) 0 Comments HS 155 deg PT-OP-L Special Tests Start: 01/22/24 07:27 Freq: Status: Active Protocol: Document 01/22/24 08:21 NM (Rec: 01/22/24 09:05 NM [id number]) Special Tests Lumbar Spine Special Tests Straight Leg Raise Test Results - Comments worse w/ head movement Slump Test Results - Comments worse w/ head movement Gan/quadrant Test Results + Comments L Hip Special Tests SUKHWINDER Test Results + Comments anterior groin PT-OP-M Strength Start: 01/22/24 07:27 Freq: Status: Active Protocol: Document 01/22/24 08:21 NM (Rec: 01/22/24 09:05 NM [id number]) Trunk Strength Trunk Manual Muscle Testing Flexion 4 Good Extension 4 Good Rotation Left 4 Good Rotation Right 4 Good Lateral Flexion Left 4 Good Lateral Flexion Right 4 Good Comments R rot painful Hip Strength Hip Manual Muscle Testing Right Flexion (L2) 4 Good Extension (S1) 4- Good- Abduction 4 Good Adduction 4 Good External Rotation 4 Good Internal Rotation 4 Good Left Flexion (L2) 4 Good Extension (S1) 4 Good Abduction 4 Good Adduction 4 Good External Rotation 4 Good Internal Rotation 4 Good Knee Strength Knee Manual Muscle Testing Right Flexion (S2) 4- Good- Extension (L3) 4 Good Comments prone HS 4-/5 and painful; no pain reproduced in sitting Left Flexion (S2) 4 Good Extension (L3) 4 Good PT-OP-Q Treatments Start: 01/22/24 07:27 Freq: Status: Active Protocol: Document 02/03/24 14:35 NM (Rec: 02/03/24 15:27 NM [id number]) Therapeutic Exercises Supine Exercises SLR Side bilateral Reps/Minutes 15 ea Comments good quad activation stretching Supine Exercise Name figure 4 stretch without hip flexion Side bilateral Reps/Minutes 1x60 ea Comments trialed w/ hip flex but d/c due to back pain reported bridge Supine Exercise Name 1. DL bridge with toe elevated , feet extended; 2. with hip abduction Side bilateral Reps/Minutes 1. 2x10 with 5 hold, 2. 15 with hip abduction and 1 sec pause at top Comments full ROM; feels more on R but equal WB w/ feet, pain free Prone Exercises hamstring curl Side right Resistance AROM > level 1 band at ankles Reps/Minutes 10 w/o resistance, 2x8 w/ resistance Comments feels working, pain free w/ or w/o resistance hip extension Side bilateral Reps/Minutes 3x8 Comments pain free; feels L side in back Standing Exercises hip flexion Standing Exercise Name for eccentric hip extension Side bilateral Resistance level 1 band at toes Equipment Used hand support for balance Reps/Minutes 15 ea hip flexor stretch Side bilateral Equipment Used foot elevated on chair, hand support for balance Reps/Minutes 60 Comments good feedback for stretch side steps Side bilateral Resistance level 2 band around thighs above knees Reps/Minutes 4x15 ft Comments cued squat position Self-Care/Home Management Treatment Education Patient Education Home Exercise Program Other Education HEP: bridge with legs extended , prone HSC with band PT-OP-T Assessment and Plan Start: 01/22/24 07:27 Freq: Status: Active Protocol: Document 02/03/24 14:35 NM (Rec: 02/03/24 15:27 NM [id number]) Physical Therapy Assessment Goals Five Impairment stairs [facility] Goal (LTG) Pt will report no limitation in ability to perform stairs due to R thigh pain in order to demonstrate improved functional mobility LTG Duration 12 weeks Four Impairment ROM [facility] Goal (LTG) Pt will improve R knee extension to at least 0 deg in order to demonstrate improved hamstring length for gait, comfort, and QOL 02/03/24: 0 deg abd LTG Duration 12 weeks MET Three Impairment squats Service Tech/Welder Goal (LTG) Pt will be able to perform at least 10 bilateral squats or 5x STS test without pain in order to demonstrate improvement in symptoms, activity tolerance, and functional mobility for ADLs/ recreational tasks LTG Duration 12 weeks Two Impairment activity tolerance Impairment LEFS 48/80 Service Tech/Welder Goal (LTG) Pt will improve LEFS score >57 /80 (1 MCID) in order to demonstrate improved activity tolerance and symptom management LTG Duration 12 weeks One Impairment sleep Impairment reports pain with sleeping, rolling over in bed Short Term Goal (STG) Pt will report no pain in her R thigh when rolling over in bed at least 4/7 days per week in order to improve sleep quality and QOL STG Duration 6 weeks Service Tech/Welder Goal (LTG) Pt will report no disruption to her sleep due to R thigh pain at least 4/7 days per week in order to improve sleep quality/QOL and improved symptom management LTG Duration 12 weeks Assessment Summary Assessment Pt tolerated session well. She is painfree in her R hamstring with all activities, and had good muscle activation during therapeutic exercises. Continued with bridge progression for hamstring loading, especially with feet further from body. Added band for increased hip abduction activation. Trialed side steps for hip abduction strengthening in order to determine tolerance for exercise versus sidelying hip abduction. Pt able to progress to resisted prone hamstring curls, which is an improvement from evaluation. Also able to perform prone hip extension on RLE, which pt unable to perform without pain even 2 sessions ago. Pt also met LTG of R knee extension, achieving terminal knee extension today . Trialed figure four stretch with hip flexion, but pt has back pain so discontinued. However, she is reporting more instances of low back pain and would benefit from global trunk/hip strengthening in order to improve symptom management.Pt would benefit from skilled PT for progressive hamstring loading in order improve ability to participate in ADLs and recreational activities without limitation. Physical Therapy Plan Frequency and Duration Frequency of Treatment 1-2x/wk Duration of treatment (weeks) 12 Plan of Care Start Date 01/22/24 Plan of Care End Date 04/17/24 Therapeutic Interventions Therapeutic Interventions Balance Training,Gait Training ,Home Exercise Program,Joint Mobilizations,Manual Therapy, Neuromuscular Re-education, Orthotic/Prosthetic Management ,Patient/Caregiver Education, Self-Care/Home Management, Sensory Integration,Soft Tissue Mobilization,Taping, Therapeutic Activities, Therapeutic Exercises Modalities Cold Pack/Ice Massage,Electric Stimulation,Hot Packs, Ultrasound Next Visit Focus/Plan Next Note Type Treatment Note Next Visit Plan No stretching HS but nerve glides ok Next session: ask tolerance to resistance band with HSC in prone. Increase resistance as able. Initiate core brace in flexion. Trial standing hip ext vs supine hip ext. Trial eccentric SL bridge (DL up>SL down) vs bridge w/ hip ABD. Modalities for pain management ; trial ultrasound if needed STM: HS as needed (glute if needed too), myofascial release Flexibility: Ishan stretch, G /S stretch, hip ER stretch into flex if tolerated, AAROM/ AROM hip/knee flex, restore full hip flex (ant and post glides Strength: DL bridge (toes elevated if able) > progress to add band for abd, ball for add, hip thrust), s/l hip abd, calf raise, SLR, HSC antigravity, hip ext antigravity, wall slides, wall HS heel dig isometric POC: hip/glute strengthening No stretching HS but nerve glides ok
--- NOTE | 2024-02-05 09:06 | PT.OTN ---
Current Diagnoses Unspecified injury of muscle, fascia and tendon of the posterior muscle group at thigh level, unspecified thigh, subsequent encounter (02/05/24) Physical Therapy Treatment Note PT-OP-A Visit Information Start: 01/22/24 07:27 Freq: Status: Active Protocol: Document 02/05/24 08:03 AB (Rec: 02/05/24 09:02 AB [id number]) Out-Patient Physical Therapy Visit Information Visit Information Visit Type Treatment Note Visit Note KX after 19 visits Visit Start Time 08:16 Visit Stop Time 09:00 Visit Number 5 Number of WELDER FITTER HELPER Visits 1 Evaluation Information Evaluation Date 01/22/24 PT-OP-B Current Condition Start: 01/22/24 07:27 Freq: Status: Active Protocol: Document 01/22/24 08:21 NM (Rec: 01/22/24 09:05 NM [id number]) Current Condition History of Current Condition Onset Date couple of months Current Complaints pain, mobility History of Current Condition Pt reports pain in R posterior leg from buttock to knee. She reports that it disturbs her sleep, worse with sitting and feels tight. Worse with bending, reaching forward to floor e.g stretching, going upstairs, transitioning from sit>stand (worse with flexion) . Sleeps with a knee pillow. Pt recently moved from [place], in , but the pain started after that point. Pt reports back pain with walking (1-1.5 mi) more L sided than R. Denies numbness or tingling. Does not bother her when she walks. Pt reports that the pain is largely worse when sedentary, but improves with movement. Sleep is the most annoying (e. g. rolling over), same equally no matter which side. Pt reports that the pain has not stopped her from doing anything, but it is there. Pt has been trying to stretch (e. g counter top stretch in various positions), which feels better when she does the exercises but it does not make the pain go away; she performs these first in the morning. PMH of high blood pressure, but takes medication and reports well managed. Prior Treatments and Tests Has had PT for other conditions: partial knee replacements Treatment Goals Patient/Caregiver Goals make the pain go away PT-OP-C Subjective Start: 01/22/24 07:27 Freq: Status: Active Protocol: Document 02/05/24 08:03 AB (Rec: 02/05/24 09:02 AB [id number]) OP-PT Subjective Patient Comments Patient Comments Patient reports she is better, comments one of the exercises makes the front of her hip joint sore. Describes the figure 4 stretch and comments she feels this in the anterior hip. Patient reports it is easier to move post sitting an hour. Patient reports hamstring pain is no longer impacting sleep. Patient reports HSC prone with band was good. PT-OP-E Functional Tests Start: 01/22/24 07:27 Freq: Status: Active Protocol: Document 01/22/24 08:21 NM (Rec: 01/22/24 10:21 NM [id number]) Functional Tests Five Times Sit to Stand Test Score 17.9 seconds Comments reports pulling in HS after 3rd rep, speed decreases Other Forward Trunk Flexion Test Name of Test measured finger tip to floor Score 5.5 Comment reports pulling in hamstrings PT-OP-F Manual Assessment Start: 01/22/24 07:27 Freq: Status: Active Protocol: Document 01/22/24 08:21 NM (Rec: 01/22/24 09:05 NM [id number]) Manual Assessments Soft Tissue Assessment Soft Tissue Mobility Assessment AROM knee flex, passive knee flexion with HS Joint Mobility Assessment Joint Mobility Assessment Full hip mobility, slight limitations in trunk AROM PT-OP-G Mobility & Gait Start: 01/22/24 07:27 Freq: Status: Active Protocol: Document 01/22/24 08:21 NM (Rec: 01/22/24 09:05 NM [id number]) OP Gait Assessment Gait Distance (Feet) 200 Gait Deviations General Gait Pattern Antalgic Comments Gait Comments Slight antalgic gait, less stance time on RLE, limitations in R TKE Stair Climbing Evaluation Technique/Endurance Stair Climbing Technique Step Over Step Number of Steps Climbed 4 Stair Climbing Set # Repetitions (reps) 2 Comments Stair Climbing Comments Reproduces hamstring pain with ascent in muscle belly PT-OP-J Posture/Palpation/Skin Start: 01/22/24 07:27 Freq: Status: Active Protocol: Document 01/22/24 08:21 NM (Rec: 01/22/24 09:05 NM [id number]) Palpation Assessment Location R thigh Palpation Details tenderness in glute/piriformis no tenderness along hamstring muscle belly, origin, or insertion PT-OP-K Range of Motion Start: 01/22/24 07:27 Freq: Status: Active Protocol: Document 01/22/24 08:21 NM (Rec: 01/22/24 09:05 NM [id number]) Lumbar Spine Range of Motion Lumbar Spine Active Percentage Flexion 90 Extension 50 Rotation Left 100 Rotation Right 100 Lateral Flexion Left 50 Lateral Flexion Right 50 Comments L low back w/ L lateral flexion, R rotation down R leg Hip Goniometric Range of Motion Hip Right Internal Rotation 20 External Rotation 30 Left Flexion w/Knee Flexed 100 Internal Rotation 28 External Rotation 30 Knee Goniometric Range of Motion Knee Right Flexion Active (degrees) 121 Extension Active (degrees) 2 Extension Passive (degrees) 0 Comments HS 145 deg Left Flexion Active (degrees) 125 Extension Active (degrees) 0 Comments HS 155 deg PT-OP-L Special Tests Start: 01/22/24 07:27 Freq: Status: Active Protocol: Document 01/22/24 08:21 NM (Rec: 01/22/24 09:05 NM [id number]) Special Tests Lumbar Spine Special Tests Straight Leg Raise Test Results - Comments worse w/ head movement Slump Test Results - Comments worse w/ head movement Gan/quadrant Test Results + Comments L Hip Special Tests SUKHWINDER Test Results + Comments anterior groin PT-OP-M Strength Start: 01/22/24 07:27 Freq: Status: Active Protocol: Document 01/22/24 08:21 NM (Rec: 01/22/24 09:05 NM [id number]) Trunk Strength Trunk Manual Muscle Testing Flexion 4 Good Extension 4 Good Rotation Left 4 Good Rotation Right 4 Good Lateral Flexion Left 4 Good Lateral Flexion Right 4 Good Comments R rot painful Hip Strength Hip Manual Muscle Testing Right Flexion (L2) 4 Good Extension (S1) 4- Good- Abduction 4 Good Adduction 4 Good External Rotation 4 Good Internal Rotation 4 Good Left Flexion (L2) 4 Good Extension (S1) 4 Good Abduction 4 Good Adduction 4 Good External Rotation 4 Good Internal Rotation 4 Good Knee Strength Knee Manual Muscle Testing Right Flexion (S2) 4- Good- Extension (L3) 4 Good Comments prone HS 4-/5 and painful; no pain reproduced in sitting Left Flexion (S2) 4 Good Extension (L3) 4 Good PT-OP-Q Treatments Start: 01/22/24 07:27 Freq: Status: Active Protocol: Document 02/05/24 08:03 (Rec: 02/05/24 09:02 [id number]) Therapeutic Exercises Supine Exercises figure 4 Side bilateral Reps/Minutes 60 seconds each LE X1 Comments monitored for groin pain Prone Exercises hamstring curl Side right Resistance AROM > level 2 band at ankles Reps/Minutes X15 X2 Comments Patient rates this exercise as medium hip extension Side bilateral Reps/Minutes 3x8 Comments pain free; Verbal cues for abdominal bracing with every LE ext Sitting Exercises chinese ball exercises Sitting Exercise Name 1. Rhythmic stablization 2 abdominal bracing with sh flex to 90, 3 Pallof P Side bilateral Resistance 3. level one band Reps/Minutes 1. one min 2. X15 3. 10 X each side Manual Therapy Treatment Soft Tissue Mobilization R hamstring Body Location hamstring and glute/piriformis Mobilization Type Cross-Friction,Myofascial Release,Rolling Intensity/Depth Superficial Body Position Prone Comments to moderate right hamstring Joint Mobilizations bilateral hips Joint bilateral hip Direction ap and inf Grade III Body Position Hooklying Reps/Duration 3X10 each mob each hip Comments monitored for pain PT-OP-T Assessment and Plan Start: 01/22/24 07:27 Freq: Status: Active Protocol: Document 02/05/24 08:03 (Rec: 02/05/24 09:02 [id number]) Physical Therapy Assessment Goals Five Impairment stairs [facility] Goal (LTG) Pt will report no limitation in ability to perform stairs due to R thigh pain in order to demonstrate improved functional mobility LTG Duration 12 weeks Four Impairment ROM [facility] Goal (LTG) Pt will improve R knee extension to at least 0 deg in order to demonstrate improved hamstring length for gait, comfort, and QOL 02/03/24: 0 deg abd LTG Duration 12 weeks MET Three Impairment squats Batcher Operator Goal (LTG) Pt will be able to perform at least 10 bilateral squats or 5x STS test without pain in order to demonstrate improvement in symptoms, activity tolerance, and functional mobility for ADLs/ recreational tasks LTG Duration 12 weeks Two Impairment activity tolerance Impairment LEFS 48/80 [facility] Goal (LTG) Pt will improve LEFS score >57 /80 (1 MCID) in order to demonstrate improved activity tolerance and symptom management LTG Duration 12 weeks One Impairment sleep Impairment reports pain with sleeping, rolling over in bed Short Term Goal (STG) Pt will report no pain in her R thigh when rolling over in bed at least 4/7 days per week in order to improve sleep quality and QOL STG Duration 6 weeks Batcher Operator Goal (LTG) Pt will report no disruption to her sleep due to R thigh pain at least 4/7 days per week in order to improve sleep quality/QOL and improved symptom management LTG Duration 12 weeks Assessment Summary Assessment Patient reports feeling it/ sensation in gluteal area vs groin for figure 4 stretch post joint mobilizations. Good urbano to progression of resistance band for prone HSC. Physical Therapy Plan Frequency and Duration Frequency of Treatment 1-2x/wk Duration of treatment (weeks) 12 Plan of Care Start Date 01/22/24 Plan of Care End Date 04/17/24 Next Visit Focus/Plan Next Note Type Treatment Note Next Visit Plan No stretching HS but nerve glides ok Next session: Increase resistance as able possibly week of 02/16 as recently increased. Review seated on chinese ball core brace in flexion. Trial standing hip ext vs supine hip ext. Trial eccentric SL bridge (DL up>SL down) vs bridge w/ hip ABD. Modalities for pain management ; trial ultrasound if needed STM: HS as needed (glute if needed too), myofascial release Flexibility: Ishan stretch, G /S stretch, hip ER stretch into flex if tolerated, AAROM/ AROM hip/knee flex, restore full hip flex (ant and post glides Strength: DL bridge (toes elevated if able) > progress to add band for abd, ball for add, hip thrust), s/l hip abd, calf raise, SLR, HSC antigravity, hip ext antigravity, wall slides, wall HS heel dig isometric POC: hip/glute strengthening No stretching HS but nerve glides ok
--- NOTE | 2024-02-13 15:26 | PT.OTN ---
Current Diagnoses Unspecified injury of muscle, fascia and tendon of the posterior muscle group at thigh level, unspecified thigh, subsequent encounter (02/13/24) Physical Therapy Treatment Note PT-OP-A Visit Information Start: 01/22/24 07:27 Freq: Status: Active Protocol: Document 02/13/24 13:01 NM (Rec: 02/13/24 13:48 NM [id number]) Out-Patient Physical Therapy Visit Information Visit Information Visit Type Treatment Note Visit Note KX after 19 visits Visit Start Time 13:03 Visit Stop Time 13:45 Visit Number 6 Evaluation Information Evaluation Date 01/22/24 PT-OP-B Current Condition Start: 01/22/24 07:27 Freq: Status: Active Protocol: Document 01/22/24 08:21 NM (Rec: 01/22/24 09:05 NM [id number]) Current Condition History of Current Condition Onset Date couple of months Current Complaints pain, mobility History of Current Condition Pt reports pain in R posterior leg from buttock to knee. She reports that it disturbs her sleep, worse with sitting and feels tight. Worse with bending, reaching forward to floor e.g stretching, going upstairs, transitioning from sit>stand (worse with flexion) . Sleeps with a knee pillow. Pt recently moved from [place], in , but the pain started after that point. Pt reports back pain with walking (1-1.5 mi) more L sided than R. Denies numbness or tingling. Does not bother her when she walks. Pt reports that the pain is largely worse when sedentary, but improves with movement. Sleep is the most annoying (e. g. rolling over), same equally no matter which side. Pt reports that the pain has not stopped her from doing anything, but it is there. Pt has been trying to stretch (e. g counter top stretch in various positions), which feels better when she does the exercises but it does not make the pain go away; she performs these first in the morning. PMH of high blood pressure, but takes medication and reports well managed. Prior Treatments and Tests Has had PT for other conditions: partial knee replacements Treatment Goals Patient/Caregiver Goals make the pain go away PT-OP-C Subjective Start: 01/22/24 07:27 Freq: Status: Active Protocol: Document 02/13/24 13:01 NM (Rec: 02/13/24 13:48 NM [id number]) OP-PT Subjective Patient Comments Patient Comments Pt reports that her hamstring is feeling really. Good tried stairs, no issues. Did a lot of walking and stairs at a concert, states no pain. States low back is bothering her. PT-OP-E Functional Tests Start: 01/22/24 07:27 Freq: Status: Active Protocol: Document 01/22/24 08:21 NM (Rec: 01/22/24 10:21 NM [id number]) Functional Tests Five Times Sit to Stand Test Score 17.9 seconds Comments reports pulling in HS after 3rd rep, speed decreases Other Forward Trunk Flexion Test Name of Test measured finger tip to floor Score 5.5 Comment reports pulling in hamstrings PT-OP-F Manual Assessment Start: 01/22/24 07:27 Freq: Status: Active Protocol: Document 01/22/24 08:21 NM (Rec: 01/22/24 09:05 NM [id number]) Manual Assessments Soft Tissue Assessment Soft Tissue Mobility Assessment AROM knee flex, passive knee flexion with HS Joint Mobility Assessment Joint Mobility Assessment Full hip mobility, slight limitations in trunk AROM PT-OP-G Mobility & Gait Start: 01/22/24 07:27 Freq: Status: Active Protocol: Document 01/22/24 08:21 NM (Rec: 01/22/24 09:05 NM [id number]) OP Gait Assessment Gait Distance (Feet) 200 Gait Deviations General Gait Pattern Antalgic Comments Gait Comments Slight antalgic gait, less stance time on RLE, limitations in R TKE Stair Climbing Evaluation Technique/Endurance Stair Climbing Technique Step Over Step Number of Steps Climbed 4 Stair Climbing Set # Repetitions (reps) 2 Comments Stair Climbing Comments Reproduces hamstring pain with ascent in muscle belly PT-OP-J Posture/Palpation/Skin Start: 01/22/24 07:27 Freq: Status: Active Protocol: Document 01/22/24 08:21 NM (Rec: 01/22/24 09:05 NM [id number]) Palpation Assessment Location R thigh Palpation Details tenderness in glute/piriformis no tenderness along hamstring muscle belly, origin, or insertion PT-OP-K Range of Motion Start: 01/22/24 07:27 Freq: Status: Active Protocol: Document 01/22/24 08:21 NM (Rec: 01/22/24 09:05 NM [id number]) Lumbar Spine Range of Motion Lumbar Spine Active Percentage Flexion 90 Extension 50 Rotation Left 100 Rotation Right 100 Lateral Flexion Left 50 Lateral Flexion Right 50 Comments L low back w/ L lateral flexion, R rotation down R leg Hip Goniometric Range of Motion Hip Right Internal Rotation 20 External Rotation 30 Left Flexion w/Knee Flexed 100 Internal Rotation 28 External Rotation 30 Knee Goniometric Range of Motion Knee Right Flexion Active (degrees) 121 Extension Active (degrees) 2 Extension Passive (degrees) 0 Comments HS 145 deg Left Flexion Active (degrees) 125 Extension Active (degrees) 0 Comments HS 155 deg PT-OP-L Special Tests Start: 01/22/24 07:27 Freq: Status: Active Protocol: Document 01/22/24 08:21 NM (Rec: 01/22/24 09:05 NM [id number]) Special Tests Lumbar Spine Special Tests Straight Leg Raise Test Results - Comments worse w/ head movement Slump Test Results - Comments worse w/ head movement Gan/quadrant Test Results + Comments L Hip Special Tests SUKHWINDER Test Results + Comments anterior groin PT-OP-M Strength Start: 01/22/24 07:27 Freq: Status: Active Protocol: Document 01/22/24 08:21 NM (Rec: 01/22/24 09:05 NM [id number]) Trunk Strength Trunk Manual Muscle Testing Flexion 4 Good Extension 4 Good Rotation Left 4 Good Rotation Right 4 Good Lateral Flexion Left 4 Good Lateral Flexion Right 4 Good Comments R rot painful Hip Strength Hip Manual Muscle Testing Right Flexion (L2) 4 Good Extension (S1) 4- Good- Abduction 4 Good Adduction 4 Good External Rotation 4 Good Internal Rotation 4 Good Left Flexion (L2) 4 Good Extension (S1) 4 Good Abduction 4 Good Adduction 4 Good External Rotation 4 Good Internal Rotation 4 Good Knee Strength Knee Manual Muscle Testing Right Flexion (S2) 4- Good- Extension (L3) 4 Good Comments prone HS 4-/5 and painful; no pain reproduced in sitting Left Flexion (S2) 4 Good Extension (L3) 4 Good PT-OP-Q Treatments Start: 01/22/24 07:27 Freq: Status: Active Protocol: Document 02/13/24 13:01 NM (Rec: 02/13/24 13:48 NM [id number]) Therapeutic Exercises Sidelying Exercises side plank Sidelying Exercise Name modified plank Side right Reps/Minutes 2x30 Comments pain free but challenging Sitting Exercises HSC Side right Resistance level 1 band Equipment Used slider Reps/Minutes 3x10 Comments medium difficulty;good activation russian ball exercises Sitting Exercise Name 1. pallof press, 2. lat pull down, 3. lat pull down w/ september Side bilateral Resistance level 3 band for pallof, level 1 band for lat Reps/Minutes 1. 2x10 ea side, 2. 10, 3. 15 ea leg Comments cued core stabiliyt Standing Exercises calf stretch Standing Exercise Name 1. G, 2. S Side bilateral Equipment Used staggered stance w/ hand support Reps/Minutes 60 ea Comments pain free; cued heel on ground hip extension Side bilateral Resistance level 1 band at ankle Equipment Used hand support for balance Reps/Minutes 2x10 ea Comments cued core brace which dec pain in back Manual Therapy Treatment Consent Patient gave verbal consent for manual Yes treatment Soft Tissue Mobilization lumbar spine Body Location glutes, lower paraspinals and QL Mobilization Type Rolling Intensity/Depth Moderate Body Position Prone Comments Mild paraspinal tightness and no tenderness but reduced with rolling gently. monitored for pain. prior to exercise R hamstring Body Location hamstring and glute/piriformis Mobilization Type Cross-Friction,Myofascial Release,Rolling Intensity/Depth Superficial Body Position Prone Comments to moderate right hamstring. Monitored for pain. No tenderness Self-Care/Home Management Treatment Education Patient Education Home Exercise Program Other Education HEP: increased resistance for prone HSC (level 2 band), standing hip ext (level 1 band ) PT-OP-T Assessment and Plan Start: 01/22/24 07:27 Freq: Status: Active Protocol: Document 02/13/24 13:01 NM (Rec: 02/13/24 13:48 NM [id number]) Physical Therapy Assessment Goals Five Impairment stairs Funeral Home Makeup Artist Goal (LTG) Pt will report no limitation in ability to perform stairs due to R thigh pain in order to demonstrate improved functional mobility LTG Duration 12 weeks Four Impairment ROM Assisted Goal (LTG) Pt will improve R knee extension to at least 0 deg in order to demonstrate improved hamstring length for gait, comfort, and QOL 02/03/24: 0 deg abd LTG Duration 12 weeks MET Three Impairment squats Funeral Home Makeup Artist Goal (LTG) Pt will be able to perform at least 10 bilateral squats or 5x STS test without pain in order to demonstrate improvement in symptoms, activity tolerance, and functional mobility for ADLs/ recreational tasks LTG Duration 12 weeks Two Impairment activity tolerance Impairment LEFS 48/80 Funeral Home Makeup Artist Goal (LTG) Pt will improve LEFS score >57 /80 (1 MCID) in order to demonstrate improved activity tolerance and symptom management LTG Duration 12 weeks One Impairment sleep Impairment reports pain with sleeping, rolling over in bed Short Term Goal (STG) Pt will report no pain in her R thigh when rolling over in bed at least 4/7 days per week in order to improve sleep quality and QOL STG Duration 6 weeks Funeral Home Makeup Artist Goal (LTG) Pt will report no disruption to her sleep due to R thigh pain at least 4/7 days per week in order to improve sleep quality/QOL and improved symptom management LTG Duration 12 weeks Assessment Summary Assessment Pt tolerated session well, reports no hamstring pain with activities. Pt has good muscle activation but fatigues quickly. Progressed to seated heel slide hamstring curl and standing hip extension. Cued for core bracing. Reviewed seated core bracing on ball to address overall proximal stability and promote upright posture during gait/stance. Pt continues to make good progress toward goals. Good response to soft tissue mobilization. Unable to complete modified side plank on L arm due to shoulder pain; she has new referral for shoulder. Pt would benefit from skilled PT for progressive LLE strengthening. Physical Therapy Plan Frequency and Duration Frequency of Treatment 1-2x/wk Duration of treatment (weeks) 12 Plan of Care Start Date 01/22/24 Plan of Care End Date 04/17/24 Therapeutic Interventions Therapeutic Interventions Balance Training,Gait Training ,Home Exercise Program,Joint Mobilizations,Manual Therapy, Neuromuscular Re-education, Orthotic/Prosthetic Management ,Patient/Caregiver Education, Self-Care/Home Management, Sensory Integration,Soft Tissue Mobilization,Taping, Therapeutic Activities, Therapeutic Exercises Modalities Cold Pack/Ice Massage,Electric Stimulation,Hot Packs, Ultrasound Next Visit Focus/Plan Next Note Type Treatment Note Next Visit Plan No stretching HS but nerve glides ok straight leg deadlift PN in 2 visits on 02/26 for possible d/c for L shoulder eval. Next session: Increase resistance as able possibly week of 02/16 as recently increased. Review seated on russian ball core brace in flexion. Trial standing hip ext vs supine hip ext. Trial eccentric SL bridge (DL up>SL down) vs bridge w/ hip ABD. Modalities for pain management ; trial ultrasound if needed STM: HS as needed (glute if needed too), myofascial release Flexibility: Ishan stretch, G /S stretch, hip ER stretch into flex if tolerated, AAROM/ AROM hip/knee flex, restore full hip flex (ant and post glides Strength: DL bridge (toes elevated if able) > progress to add band for abd, ball for add, hip thrust), s/l hip abd, calf raise, SLR, HSC antigravity, hip ext antigravity, wall slides, wall HS heel dig isometric POC: hip/glute strengthening No stretching HS but nerve glides ok
--- NOTE | 2024-02-17 12:06 | PT.OTN ---
Current Diagnoses Unspecified injury of muscle, fascia and tendon of the posterior muscle group at thigh level, unspecified thigh, subsequent encounter (02/17/24) Physical Therapy Treatment Note PT-OP-A Visit Information Start: 01/22/24 07:27 Freq: Status: Active Protocol: Document 02/17/24 11:14 NM (Rec: 02/17/24 12:05 NM [id number]) Out-Patient Physical Therapy Visit Information Visit Information Visit Type Treatment Note Visit Note KX after 19 visits Visit Start Time 11:15 Visit Stop Time 11:55 Visit Number 7 Evaluation Information Evaluation Date 01/22/24 PT-OP-B Current Condition Start: 01/22/24 07:27 Freq: Status: Active Protocol: Document 01/22/24 08:21 NM (Rec: 01/22/24 09:05 NM [id number]) Current Condition History of Current Condition Onset Date couple of months Current Complaints pain, mobility History of Current Condition Pt reports pain in R posterior leg from buttock to knee. She reports that it disturbs her sleep, worse with sitting and feels tight. Worse with bending, reaching forward to floor e.g stretching, going upstairs, transitioning from sit>stand (worse with flexion) . Sleeps with a knee pillow. Pt recently moved from [place], in , but the pain started after that point. Pt reports back pain with walking (1-1.5 mi) more L sided than R. Denies numbness or tingling. Does not bother her when she walks. Pt reports that the pain is largely worse when sedentary, but improves with movement. Sleep is the most annoying (e. g. rolling over), same equally no matter which side. Pt reports that the pain has not stopped her from doing anything, but it is there. Pt has been trying to stretch (e. g counter top stretch in various positions), which feels better when she does the exercises but it does not make the pain go away; she performs these first in the morning. PMH of high blood pressure, but takes medication and reports well managed. Prior Treatments and Tests Has had PT for other conditions: partial knee replacements Treatment Goals Patient/Caregiver Goals make the pain go away PT-OP-C Subjective Start: 01/22/24 07:27 Freq: Status: Active Protocol: Document 02/17/24 11:14 NM (Rec: 02/17/24 12:05 NM [id number]) OP-PT Subjective Patient Comments Patient Comments Pt reports walked 3 mi over weekend, which led to R hamstring soreness. Denies pain. States felt tired and no pain after last session. No pain with stairs, leading with RLE. PT-OP-E Functional Tests Start: 01/22/24 07:27 Freq: Status: Active Protocol: Document 01/22/24 08:21 NM (Rec: 01/22/24 10:21 NM [id number]) Functional Tests Five Times Sit to Stand Test Score 17.9 seconds Comments reports pulling in HS after 3rd rep, speed decreases Other Forward Trunk Flexion Test Name of Test measured finger tip to floor Score 5.5 Comment reports pulling in hamstrings PT-OP-F Manual Assessment Start: 01/22/24 07:27 Freq: Status: Active Protocol: Document 01/22/24 08:21 NM (Rec: 01/22/24 09:05 NM [id number]) Manual Assessments Soft Tissue Assessment Soft Tissue Mobility Assessment AROM knee flex, passive knee flexion with HS Joint Mobility Assessment Joint Mobility Assessment Full hip mobility, slight limitations in trunk AROM PT-OP-G Mobility & Gait Start: 01/22/24 07:27 Freq: Status: Active Protocol: Document 01/22/24 08:21 NM (Rec: 01/22/24 09:05 NM [id number]) OP Gait Assessment Gait Distance (Feet) 200 Gait Deviations General Gait Pattern Antalgic Comments Gait Comments Slight antalgic gait, less stance time on RLE, limitations in R TKE Stair Climbing Evaluation Technique/Endurance Stair Climbing Technique Step Over Step Number of Steps Climbed 4 Stair Climbing Set # Repetitions (reps) 2 Comments Stair Climbing Comments Reproduces hamstring pain with ascent in muscle belly PT-OP-J Posture/Palpation/Skin Start: 01/22/24 07:27 Freq: Status: Active Protocol: Document 01/22/24 08:21 NM (Rec: 01/22/24 09:05 NM [id number]) Palpation Assessment Location R thigh Palpation Details tenderness in glute/piriformis no tenderness along hamstring muscle belly, origin, or insertion PT-OP-K Range of Motion Start: 01/22/24 07:27 Freq: Status: Active Protocol: Document 01/22/24 08:21 NM (Rec: 01/22/24 09:05 NM [id number]) Lumbar Spine Range of Motion Lumbar Spine Active Percentage Flexion 90 Extension 50 Rotation Left 100 Rotation Right 100 Lateral Flexion Left 50 Lateral Flexion Right 50 Comments L low back w/ L lateral flexion, R rotation down R leg Hip Goniometric Range of Motion Hip Right Internal Rotation 20 External Rotation 30 Left Flexion w/Knee Flexed 100 Internal Rotation 28 External Rotation 30 Knee Goniometric Range of Motion Knee Right Flexion Active (degrees) 121 Extension Active (degrees) 2 Extension Passive (degrees) 0 Comments HS 145 deg Left Flexion Active (degrees) 125 Extension Active (degrees) 0 Comments HS 155 deg PT-OP-L Special Tests Start: 01/22/24 07:27 Freq: Status: Active Protocol: Document 01/22/24 08:21 NM (Rec: 01/22/24 09:05 NM [id number]) Special Tests Lumbar Spine Special Tests Straight Leg Raise Test Results - Comments worse w/ head movement Slump Test Results - Comments worse w/ head movement Gan/quadrant Test Results + Comments L Hip Special Tests SUKHWINDER Test Results + Comments anterior groin PT-OP-M Strength Start: 01/22/24 07:27 Freq: Status: Active Protocol: Document 01/22/24 08:21 NM (Rec: 01/22/24 09:05 NM [id number]) Trunk Strength Trunk Manual Muscle Testing Flexion 4 Good Extension 4 Good Rotation Left 4 Good Rotation Right 4 Good Lateral Flexion Left 4 Good Lateral Flexion Right 4 Good Comments R rot painful Hip Strength Hip Manual Muscle Testing Right Flexion (L2) 4 Good Extension (S1) 4- Good- Abduction 4 Good Adduction 4 Good External Rotation 4 Good Internal Rotation 4 Good Left Flexion (L2) 4 Good Extension (S1) 4 Good Abduction 4 Good Adduction 4 Good External Rotation 4 Good Internal Rotation 4 Good Knee Strength Knee Manual Muscle Testing Right Flexion (S2) 4- Good- Extension (L3) 4 Good Comments prone HS 4-/5 and painful; no pain reproduced in sitting Left Flexion (S2) 4 Good Extension (L3) 4 Good PT-OP-Q Treatments Start: 01/22/24 07:27 Freq: Status: Active Protocol: Document 02/17/24 11:14 NM (Rec: 02/17/24 12:05 NM [id number]) Therapeutic Exercises Sitting Exercises sit to stand Sitting Exercise Name trialed in PT Side bilateral Reps/Minutes 10 Comments pain free; increased trunk flexion HSC Side bilateral Resistance level 2 band at ankle Equipment Used slider Reps/Minutes 2x10 Comments no pain Standing Exercises RDL Standing Exercise Name kickstand RDL Side bilateral Reps/Minutes 10 ea leg Comments challenging; only feels activation deadlift Standing Exercise Name 1. hip hinge in sitting, 2. eccentric HS length w/ deadlift Side bilateral Resistance AROM > 2# Reps/Minutes 1. 10 w/ self tactile cue, 2. 2x10 w/ AROM and 10 w/ 2# db Comments no HS pain; requires increased time step up Standing Exercise Name 4 > 6 > 8 Side bilateral Reps/Minutes 10 ea height, ea leg Comments no pain in R HS with any length; cued control w/ eccentric lowering squat Standing Exercise Name trialed in PT Side bilateral Resistance level 2 band at thighs Equipment Used to chair; last set with hand support for hip hinge Reps/Minutes 2x10 ea Comments cued hip hinge; no HS pain or discomfort Manual Therapy Treatment Consent Patient gave verbal consent for manual Yes treatment Soft Tissue Mobilization R hamstring Body Location hamstring Mobilization Type Cross-Friction,Myofascial Release,Rolling Intensity/Depth Moderate Body Position Prone Comments No tenderness Self-Care/Home Management Treatment Education Patient Education Home Exercise Program Other Education HEP: removed bridges Added squat with band, straight leg lift PT-OP-T Assessment and Plan Start: 01/22/24 07:27 Freq: Status: Active Protocol: Document 02/17/24 11:14 NM (Rec: 02/17/24 12:05 NM [id number]) Physical Therapy Assessment Goals Five Impairment stairs Longterm Goal (LTG) Pt will report no limitation in ability to perform stairs due to R thigh pain in order to demonstrate improved functional mobility 02/17/24: able to do 6-8 step ups for multiple reps without pain LTG Duration 12 weeks Four Impairment ROM Ventilating Engineer Goal (LTG) Pt will improve R knee extension to at least 0 deg in order to demonstrate improved hamstring length for gait, comfort, and QOL 02/03/24: 0 deg abd LTG Duration 12 weeks MET Three Impairment squats Longterm Goal (LTG) Pt will be able to perform at least 10 bilateral squats or 5x STS test without pain in order to demonstrate improvement in symptoms, activity tolerance, and functional mobility for ADLs/ recreational tasks 02/17/24: 10 squats, 10 STS without HS pain LTG Duration 12 weeks Two Impairment activity tolerance Impairment LEFS 48/80 Longterm Goal (LTG) Pt will improve LEFS score >57 /80 (1 MCID) in order to demonstrate improved activity tolerance and symptom management LTG Duration 12 weeks One Impairment sleep Impairment reports pain with sleeping, rolling over in bed Short Term Goal (STG) Pt will report no pain in her R thigh when rolling over in bed at least 4/7 days per week in order to improve sleep quality and QOL 02/17/24: reports no pain with rolling over, only states stiff and tight in R leg at night due to same position STG Duration 6 weeks Longterm Goal (LTG) Pt will report no disruption to her sleep due to R thigh pain at least 4/7 days per week in order to improve sleep quality/QOL and improved symptom management LTG Duration 12 weeks Assessment Summary Assessment Pt tolerated session well. Reports no pain or discomfort in R hamstring during any activity today. Trialed step ups and STS/squats to determine hamstring tolerance for more WB-related activity. Requires cues for form, control; however, no hamstring discomfort. Demos opposite hip drop with step up, no change with cueing. Pt also able to progress resisted with seated HSC. Trialed hip hinge and deadlift for eccentric hamstring activation. Pt able to perform well after initial education/cueing for form. Pt wanting PT for shoulder since has referral, will discuss possible discharge after PN next session to determine if appropriate as pt has no pain with any of initial complaints from evaluation. Physical Therapy Plan Frequency and Duration Frequency of Treatment 1-2x/wk Duration of treatment (weeks) 12 Plan of Care Start Date 01/22/24 Plan of Care End Date 04/17/24 Therapeutic Interventions Therapeutic Interventions Balance Training,Gait Training ,Home Exercise Program,Joint Mobilizations,Manual Therapy, Neuromuscular Re-education, Orthotic/Prosthetic Management ,Patient/Caregiver Education, Self-Care/Home Management, Sensory Integration,Soft Tissue Mobilization,Taping, Therapeutic Activities, Therapeutic Exercises Modalities Cold Pack/Ice Massage,Electric Stimulation,Hot Packs, Ultrasound Next Visit Focus/Plan Next Note Type Progress Note Next Visit Plan No stretching HS but nerve glides ok straight leg deadlift Trial leg press, stairs, heel digs on stool Next session: Increase resistance as able possibly week of 02/16 as recently increased. Review seated on rwandan ball core brace in flexion. Trial standing hip ext vs supine hip ext. Trial eccentric SL bridge (DL up>SL down) vs bridge w/ hip ABD. Modalities for pain management ; trial ultrasound if needed STM: HS as needed (glute if needed too), myofascial release Flexibility: Ishan stretch, G /S stretch, hip ER stretch into flex if tolerated, AAROM/ AROM hip/knee flex, restore full hip flex (ant and post glides Strength: DL bridge (toes elevated if able) > progress to add band for abd, ball for add, hip thrust), s/l hip abd, calf raise, SLR, HSC antigravity, hip ext antigravity, wall slides, wall HS heel dig isometric POC: hip/glute strengthening No stretching HS but nerve glides ok
--- NOTE | 2024-02-21 15:28 | PT.OTN ---
Current Diagnoses Unspecified injury of muscle, fascia and tendon of the posterior muscle group at thigh level, unspecified thigh, subsequent encounter (02/21/24) Physical Therapy Treatment Note PT-OP-A Visit Information Start: 01/22/24 07:27 Freq: Status: Active Protocol: Document 02/21/24 14:35 NM (Rec: 02/21/24 15:28 NM [id number]) Out-Patient Physical Therapy Visit Information Visit Information Visit Type Treatment Note Visit Note KX after 19 visits Visit Start Time 14:35 Visit Stop Time 15:15 Visit Number 8 PT-OP-B Current Condition Start: 01/22/24 07:27 Freq: Status: Active Protocol: Document 01/22/24 08:21 NM (Rec: 01/22/24 09:05 NM [id number]) Current Condition History of Current Condition Onset Date couple of months Current Complaints pain, mobility History of Current Condition Pt reports pain in R posterior leg from buttock to knee. She reports that it disturbs her sleep, worse with sitting and feels tight. Worse with bending, reaching forward to floor e.g stretching, going upstairs, transitioning from sit>stand (worse with flexion) . Sleeps with a knee pillow. Pt recently moved from [place], in , but the pain started after that point. Pt reports back pain with walking (1-1.5 mi) more L sided than R. Denies numbness or tingling. Does not bother her when she walks. Pt reports that the pain is largely worse when sedentary, but improves with movement. Sleep is the most annoying (e. g. rolling over), same equally no matter which side. Pt reports that the pain has not stopped her from doing anything, but it is there. Pt has been trying to stretch (e. g counter top stretch in various positions), which feels better when she does the exercises but it does not make the pain go away; she performs these first in the morning. PMH of high blood pressure, but takes medication and reports well managed. Prior Treatments and Tests Has had PT for other conditions: partial knee replacements Treatment Goals Patient/Caregiver Goals make the pain go away PT-OP-C Subjective Start: 01/22/24 07:27 Freq: Status: Active Protocol: Document 02/21/24 14:35 NM (Rec: 02/21/24 15:28 NM [id number]) OP-PT Subjective Patient Comments Patient Comments Pt reports no pain but states irritated following last session. States that she felt it after last session but has not resolved. She went walking for 15 minutes. 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 PT-OP-E Functional Tests Start: 01/22/24 07:27 Freq: Status: Active Protocol: Document 01/22/24 08:21 NM (Rec: 01/22/24 10:21 NM [id number]) Functional Tests Five Times Sit to Stand Test Score 17.9 seconds Comments reports pulling in HS after 3rd rep, speed decreases Other Forward Trunk Flexion Test Name of Test measured finger tip to floor Score 5.5 Comment reports pulling in hamstrings PT-OP-F Manual Assessment Start: 01/22/24 07:27 Freq: Status: Active Protocol: Document 01/22/24 08:21 NM (Rec: 01/22/24 09:05 NM [id number]) Manual Assessments Soft Tissue Assessment Soft Tissue Mobility Assessment AROM knee flex, passive knee flexion with HS Joint Mobility Assessment Joint Mobility Assessment Full hip mobility, slight limitations in trunk AROM PT-OP-G Mobility & Gait Start: 01/22/24 07:27 Freq: Status: Active Protocol: Document 01/22/24 08:21 NM (Rec: 01/22/24 09:05 NM [id number]) OP Gait Assessment Gait Distance (Feet) 200 Gait Deviations General Gait Pattern Antalgic Comments Gait Comments Slight antalgic gait, less stance time on RLE, limitations in R TKE Stair Climbing Evaluation Technique/Endurance Stair Climbing Technique Step Over Step Number of Steps Climbed 4 Stair Climbing Set # Repetitions (reps) 2 Comments Stair Climbing Comments Reproduces hamstring pain with ascent in muscle belly PT-OP-J Posture/Palpation/Skin Start: 01/22/24 07:27 Freq: Status: Active Protocol: Document 01/22/24 08:21 NM (Rec: 01/22/24 09:05 NM [id number]) Palpation Assessment Location R thigh Palpation Details tenderness in glute/piriformis no tenderness along hamstring muscle belly, origin, or insertion PT-OP-K Range of Motion Start: 01/22/24 07:27 Freq: Status: Active Protocol: Document 01/22/24 08:21 NM (Rec: 01/22/24 09:05 NM [id number]) Lumbar Spine Range of Motion Lumbar Spine Active Percentage Flexion 90 Extension 50 Rotation Left 100 Rotation Right 100 Lateral Flexion Left 50 Lateral Flexion Right 50 Comments L low back w/ L lateral flexion, R rotation down R leg Hip Goniometric Range of Motion Hip Right Internal Rotation 20 External Rotation 30 Left Flexion w/Knee Flexed 100 Internal Rotation 28 External Rotation 30 Knee Goniometric Range of Motion Knee Right Flexion Active (degrees) 121 Extension Active (degrees) 2 Extension Passive (degrees) 0 Comments HS 145 deg Left Flexion Active (degrees) 125 Extension Active (degrees) 0 Comments HS 155 deg PT-OP-L Special Tests Start: 01/22/24 07:27 Freq: Status: Active Protocol: Document 01/22/24 08:21 NM (Rec: 01/22/24 09:05 NM [id number]) Special Tests Lumbar Spine Special Tests Straight Leg Raise Test Results - Comments worse w/ head movement Slump Test Results - Comments worse w/ head movement Gan/quadrant Test Results + Comments L Hip Special Tests SUKHWINDER Test Results + Comments anterior groin PT-OP-M Strength Start: 01/22/24 07:27 Freq: Status: Active Protocol: Document 01/22/24 08:21 NM (Rec: 01/22/24 09:05 NM [id number]) Trunk Strength Trunk Manual Muscle Testing Flexion 4 Good Extension 4 Good Rotation Left 4 Good Rotation Right 4 Good Lateral Flexion Left 4 Good Lateral Flexion Right 4 Good Comments R rot painful Hip Strength Hip Manual Muscle Testing Right Flexion (L2) 4 Good Extension (S1) 4- Good- Abduction 4 Good Adduction 4 Good External Rotation 4 Good Internal Rotation 4 Good Left Flexion (L2) 4 Good Extension (S1) 4 Good Abduction 4 Good Adduction 4 Good External Rotation 4 Good Internal Rotation 4 Good Knee Strength Knee Manual Muscle Testing Right Flexion (S2) 4- Good- Extension (L3) 4 Good Comments prone HS 4-/5 and painful; no pain reproduced in sitting Left Flexion (S2) 4 Good Extension (L3) 4 Good PT-OP-Q Treatments Start: 01/22/24 07:27 Freq: Status: Active Protocol: Document 02/21/24 14:35 NM (Rec: 02/21/24 15:28 NM [id number]) Gym Equipment Shuttle Recovery unilateral squat Details hard, no pain in HS Resistance 50# (2 navy) Reps/Time 2x8 Therapeutic Exercises Supine Exercises figure 4 Side bilateral Reps/Minutes 1x60 ea Comments monitored for groin pain heel slide Supine Exercise Name for knee flexion AROM Side right Resistance AROM Reps/Minutes 60 Comments following manual tx Sitting Exercises heel digs Sitting Exercise Name on rolling stool Side bilateral Reps/Minutes 2x10 ft Comments pain free Standing Exercises HSC Side right Resistance AROM > 4# ankle weight Reps/Minutes 10 ea, 2x10 with weights Comments pain free step up Standing Exercise Name 6 Side bilateral Equipment Used with hip flex Reps/Minutes 2x12 Comments no pain in HS, cued eccentric control squat Standing Exercise Name see shuttle recovery Manual Therapy Treatment Consent Patient gave verbal consent for manual Yes treatment Soft Tissue Mobilization R hamstring Body Location hamstring Mobilization Type Cross-Friction,Myofascial Release,Rolling Intensity/Depth Moderate Body Position Prone Comments Increased tightness especially in medial hamstrings and muscle belly. No tenderness reported after soft tissue mobilization PT-OP-T Assessment and Plan Start: 01/22/24 07:27 Freq: Status: Active Protocol: Document 02/21/24 14:35 NM (Rec: 02/21/24 15:28 NM [id number]) Physical Therapy Assessment Goals Five Impairment stairs Manager Math Goal (LTG) Pt will report no limitation in ability to perform stairs due to R thigh pain in order to demonstrate improved functional mobility 02/17/24: able to do 6-8 step ups for multiple reps without pain LTG Duration 12 weeks Four Impairment ROM Manager Math Goal (LTG) Pt will improve R knee extension to at least 0 deg in order to demonstrate improved hamstring length for gait, comfort, and QOL 02/03/24: 0 deg abd LTG Duration 12 weeks MET Three Impairment squats Fci Goal (LTG) Pt will be able to perform at least 10 bilateral squats or 5x STS test without pain in order to demonstrate improvement in symptoms, activity tolerance, and functional mobility for ADLs/ recreational tasks 02/17/24: 10 squats, 10 STS without HS pain LTG Duration 12 weeks Two Impairment activity tolerance Impairment LEFS 48/80 [facility]ci Goal (LTG) Pt will improve LEFS score >57 /80 (1 MCID) in order to demonstrate improved activity tolerance and symptom management LTG Duration 12 weeks One Impairment sleep Impairment reports pain with sleeping, rolling over in bed Short Term Goal (STG) Pt will report no pain in her R thigh when rolling over in bed at least 4/7 days per week in order to improve sleep quality and QOL 02/17/24: reports no pain with rolling over, only states stiff and tight in R leg at night due to same position STG Duration 6 weeks Manager Math Goal (LTG) Pt will report no disruption to her sleep due to R thigh pain at least 4/7 days per week in order to improve sleep quality/QOL and improved symptom management LTG Duration 12 weeks Assessment Summary Assessment Pt tolerated session well and reports no R hamstring pain or discomfort with activity. Good response to soft tissue mobilization, especially in hamstring muscle belly. Pt reports soreness at beginning of session resolves with soft tissue mobilization; has increased tightness and restrictions compared to previous session. Progressed squat to shuttle recovery with single leg squat; good form but challenging for pt. Trialed standing hamstring curl for end range knee flexion and hip extension, able to progress to several sets with ankle weight. Pt reports doing well and is interested in discharge in future sessions in order to address L shoulder. Pt would benefit from skilled PT for R hamstring strengthening in order to improve symptom management and activity tolerance. Physical Therapy Plan Frequency and Duration Frequency of Treatment 1-2x/wk Duration of treatment (weeks) 12 Plan of Care Start Date 01/22/24 Plan of Care End Date 04/17/24 Therapeutic Interventions Therapeutic Interventions Balance Training,Gait Training ,Home Exercise Program,Joint Mobilizations,Manual Therapy, Neuromuscular Re-education, Orthotic/Prosthetic Management ,Patient/Caregiver Education, Self-Care/Home Management, Sensory Integration,Soft Tissue Mobilization,Taping, Therapeutic Activities, Therapeutic Exercises Modalities Cold Pack/Ice Massage,Electric Stimulation,Hot Packs, Ultrasound Next Visit Focus/Plan Next Note Type Progress Note Next Visit Plan leg press, lift, SRDL, hip ext, HSC No stretching HS but nerve glides ok
--- NOTE | 2024-02-27 09:12 | PT.OTN ---
Current Diagnoses Unspecified injury of muscle, fascia and tendon of the posterior muscle group at thigh level, unspecified thigh, subsequent encounter (02/27/24) Physical Therapy Treatment Note PT-OP-A Visit Information Start: 01/22/24 07:27 Freq: Status: Active Protocol: Document 02/27/24 07:28 NM (Rec: 02/27/24 08:16 NM [id number]) Out-Patient Physical Therapy Visit Information Visit Information Visit Type Progress Note Visit Note KX after 19 visits Visit Start Time 07:30 Visit Stop Time 08:10 Visit Number 9 Evaluation Information Evaluation Date 01/22/24 PT-OP-B Current Condition Start: 01/22/24 07:27 Freq: Status: Active Protocol: Document 01/22/24 08:21 NM (Rec: 01/22/24 09:05 NM [id number]) Current Condition History of Current Condition Onset Date couple of months Current Complaints pain, mobility History of Current Condition Pt reports pain in R posterior leg from buttock to knee. She reports that it disturbs her sleep, worse with sitting and feels tight. Worse with bending, reaching forward to floor e.g stretching, going upstairs, transitioning from sit>stand (worse with flexion) . Sleeps with a knee pillow. Pt recently moved from [place], in , but the pain started after that point. Pt reports back pain with walking (1-1.5 mi) more L sided than R. Denies numbness or tingling. Does not bother her when she walks. Pt reports that the pain is largely worse when sedentary, but improves with movement. Sleep is the most annoying (e. g. rolling over), same equally no matter which side. Pt reports that the pain has not stopped her from doing anything, but it is there. Pt has been trying to stretch (e. g counter top stretch in various positions), which feels better when she does the exercises but it does not make the pain go away; she performs these first in the morning. PMH of high blood pressure, but takes medication and reports well managed. Prior Treatments and Tests Has had PT for other conditions: partial knee replacements Treatment Goals Patient/Caregiver Goals make the pain go away PT-OP-C Subjective Start: 01/22/24 07:27 Freq: Status: Active Protocol: Document 02/27/24 07:28 NM (Rec: 02/27/24 08:16 NM [id number]) OP-PT Subjective Patient Comments Patient Comments Pt reports no pain or soreness after last session, no difficulty with R hamstring. She has had no difficulty with HEP or stairs since last session. States still not completely healed because still bothers her when she sits for 1-1.5 hr, but states only stiff and little uncomfortable. States at least 75% better, but probably more. States hamstring does not limit her from being able to participate in any activity as long as she warms up. PT-OP-E Functional Tests Start: 01/22/24 07:27 Freq: Status: Active Protocol: Document 01/22/24 08:21 NM (Rec: 01/22/24 10:21 NM [id number]) Functional Tests Five Times Sit to Stand Test Score 17.9 seconds Comments reports pulling in HS after 3rd rep, speed decreases Other Forward Trunk Flexion Test Name of Test measured finger tip to floor Score 5.5 Comment reports pulling in hamstrings PT-OP-F Manual Assessment Start: 01/22/24 07:27 Freq: Status: Active Protocol: Document 01/22/24 08:21 NM (Rec: 01/22/24 09:05 NM [id number]) Manual Assessments Soft Tissue Assessment Soft Tissue Mobility Assessment AROM knee flex, passive knee flexion with HS Joint Mobility Assessment Joint Mobility Assessment Full hip mobility, slight limitations in trunk AROM PT-OP-G Mobility & Gait Start: 01/22/24 07:27 Freq: Status: Active Protocol: Document 01/22/24 08:21 NM (Rec: 01/22/24 09:05 NM [id number]) OP Gait Assessment Gait Distance (Feet) 200 Gait Deviations General Gait Pattern Antalgic Comments Gait Comments Slight antalgic gait, less stance time on RLE, limitations in R TKE Stair Climbing Evaluation Technique/Endurance Stair Climbing Technique Step Over Step Number of Steps Climbed 4 Stair Climbing Set # Repetitions (reps) 2 Comments Stair Climbing Comments Reproduces hamstring pain with ascent in muscle belly PT-OP-J Posture/Palpation/Skin Start: 01/22/24 07:27 Freq: Status: Active Protocol: Document 01/22/24 08:21 NM (Rec: 01/22/24 09:05 NM [id number]) Palpation Assessment Location R thigh Palpation Details tenderness in glute/piriformis no tenderness along hamstring muscle belly, origin, or insertion PT-OP-K Range of Motion Start: 01/22/24 07:27 Freq: Status: Active Protocol: Document 02/27/24 07:28 NM (Rec: 02/27/24 08:16 NM [id number]) Knee Goniometric Range of Motion Knee Right Flexion Active (degrees) 130 Extension Active (degrees) 0 Extension Passive (degrees) 0 Comments IE: 121 deg flex, 2 deg ext; HS 145 deg 02/27/24: 130 to 0 deg; HS length: 145 deg Left Flexion Active (degrees) 125 Extension Active (degrees) 0 Comments HS 155 deg PT-OP-L Special Tests Start: 01/22/24 07:27 Freq: Status: Active Protocol: Document 01/22/24 08:21 NM (Rec: 01/22/24 09:05 NM [id number]) Special Tests Lumbar Spine Special Tests Straight Leg Raise Test Results - Comments worse w/ head movement Slump Test Results - Comments worse w/ head movement Gan/quadrant Test Results + Comments L Hip Special Tests SUKHWINDER Test Results + Comments anterior groin PT-OP-M Strength Start: 01/22/24 07:27 Freq: Status: Active Protocol: Document 02/27/24 07:28 NM (Rec: 02/27/24 08:16 NM [id number]) Knee Strength Knee Manual Muscle Testing Right Flexion (S2) 4+ Good+ Extension (L3) 4+ Good+ Comments IE: prone HS 4-/5 and painful; no pain reproduced in sitting 02/27/24: 4+/5 for both, no pain Left Flexion (S2) 4 Good Extension (L3) 4 Good PT-OP-Q Treatments Start: 01/22/24 07:27 Freq: Status: Active Protocol: Document 02/27/24 07:28 NM (Rec: 02/27/24 08:16 NM [id number]) Therapeutic Exercises Sitting Exercises heel digs Sitting Exercise Name on rolling stool Side bilateral Reps/Minutes 2x20 ft Comments pain free Standing Exercises HSC Side right Resistance level 2 band Reps/Minutes 2x10 Comments pain free deadlift Standing Exercise Name eccentric HS length w/ deadlift Side bilateral Resistance AROM Equipment Used dowel to 12 step Reps/Minutes 3x10 Comments no HS pain, good hinge step up Standing Exercise Name 8 Side bilateral Equipment Used with tactile cues on hips for level hips Reps/Minutes 10 ea with step up/down; 10 ea w/ step up/over; 20 ea lateral Comments improved eccentric control, pain free for all squat Standing Exercise Name B squat with small weight in hand to chair Side bilateral Resistance 5# db Reps/Minutes 2x10 ea Comments medium difficulty in legs; pain free PT-OP-T Assessment and Plan Start: 01/22/24 07:27 Freq: Status: Active Protocol: Document 02/27/24 07:28 NM (Rec: 02/27/24 08:16 NM [id number]) Physical Therapy Assessment Goals Five Impairment stairs Group Home Goal (LTG) Pt will report no limitation in ability to perform stairs due to R thigh pain in order to demonstrate improved functional mobility 02/17/24: able to do 6-8 step ups for multiple reps without pain 02/27/24: able to do multiple reps 8 step ups and step up/ overs with R leg leading, no pain or discomfort LTG Duration 12 weeks MET Four Impairment ROM Group Home Goal (LTG) Pt will improve R knee extension to at least 0 deg in order to demonstrate improved hamstring length for gait, comfort, and QOL 02/03/24: 0 deg abd LTG Duration 12 weeks MET Three Impairment squats Group Home Goal (LTG) Pt will be able to perform at least 10 bilateral squats or 5x STS test without pain in order to demonstrate improvement in symptoms, activity tolerance, and functional mobility for ADLs/ recreational tasks 02/17/24: 10 squats, 10 STS without HS pain 02/27/24: LTG Duration 12 weeks Two Impairment activity tolerance Impairment LEFS 48/80 Half Backer Goal (LTG) Pt will improve LEFS score >57 /80 (1 MCID) in order to demonstrate improved activity tolerance and symptom management 02/27/24: 56/80 LTG Duration 12 weeks NOT MET One Impairment sleep Impairment reports pain with sleeping, rolling over in bed Short Term Goal (STG) Pt will report no pain in her R thigh when rolling over in bed at least 4/7 days per week in order to improve sleep quality and QOL 02/17/24: reports no pain with rolling over, only states stiff and tight in R leg at night due to same position STG Duration 6 weeks Half Backer Goal (LTG) Pt will report no disruption to her sleep due to R thigh pain at least 4/7 days per week in order to improve sleep quality/QOL and improved symptom management 02/27/24: R thigh does not wake her up at night LTG Duration 12 weeks MET Progress Towards Goals Progress Towards Goals Goals Met Progress Comments With exception of LEFS but pt improved by 8 points and reports no issues with ADLs/ IADLs/recreational tasks or mobility Assessment Summary Assessment Pt tolerated session well without any R hamstring pain. Progressed to 8 step ups with good form, no compensations or pain; able to perform forward, eccentrically, and laterally without issue. Pt continues to be pain free with squatting and deadlift to assess hamstring strength in both shortened and lengthened position, respectively. PT and pt discussed discharge today as pt has met goals and reports no limitations with mobility related to hamstring. PT and pt in agreement Physical Therapy Plan Frequency and Duration Frequency of Treatment 1-2x/wk Duration of treatment (weeks) 12 Plan of Care Start Date 01/22/24 Plan of Care End Date 04/17/24 Therapeutic Interventions Therapeutic Interventions Balance Training,Gait Training ,Home Exercise Program,Joint Mobilizations,Manual Therapy, Neuromuscular Re-education, Orthotic/Prosthetic Management ,Patient/Caregiver Education, Self-Care/Home Management, Sensory Integration,Soft Tissue Mobilization,Taping, Therapeutic Activities, Therapeutic Exercises Modalities Cold Pack/Ice Massage,Electric Stimulation,Hot Packs, Ultrasound Discharge Physical Therapy Discharge Reasons Goals Met Discharge Comments Pt has new referral for shoulder. Wants to d/c today for R hamstring, has met all goals and is compliant with HEP Next Visit Focus/Plan Next Visit Plan discharge from PT
== END 2024-03-02 13:47 | disposition home or self-care (01) ==
LOC: PHYS 07:30
PROVIDERS: Family Provider Family Medicine Geriatric Medicine; PCP Family Medicine; Referring Provider Family Medicine; Visit Provider Family Medicine
DX: S76.309D Unspecified injury of muscle, fascia and tendon of the posterior muscle group at thigh level, unspecified thigh, subsequent encounter (principal)
CPT/HCPCS: 97110; 97140; 97161

== ENCOUNTER → 2024-04-21 11:13 | Outpatient (CLI) | payer MEDICARE, OTHER, SELFPAY ==
--- NOTE | 2024-04-21 11:14 | DI.RAD.S_ITS ---
PROCEDURE: XR DEXA AXIAL SKELETON INDICATIONS: Screening for osteoporosis in a 63yr female postmenopausal COMPARISON: None. FINDINGS: Lumbar Spine: Bone mineral density 1.084 g/cm2, T score 0.6. Left Hip: Bone mineral density 0.750 g/cm2, T score -0.9. Left Femoral Neck: Bone mineral density 0.959 g/cm2, T score 0.1. Right Hip: Bone mineral density 0.742 g/cm2, T score -1.0. Right Femoral Neck: Bone mineral density 0.928 g/cm2, T score -0.1. Fracture Risk Calculation (when applicable): 10-year fracture risk of a major osteoporotic fracture 8.0 percent and of a hip fracture 0.6 percent. (T score greater or equal to -1.0 to: NORMAL) (T score from -1.1 to -2.4: OSTEOPENIA) (T score less than or equal to -2.5: OSTEOPOROSIS) IMPRESSION: 1. By WHO (World Health Organization) criteria, this patient has normal bone density Follow-up guidelines as follows: Osteoporosis: Consider a repeat DEXA and Vertebral Fracture Assessment (VFA) exam in 2 years or sooner if medically necessary, to reassess this patient's status. Osteopenia: Consider a repeat DEXA in 2-3 years to reassess this patient's status, or if there is a new clinical indication. Normal: Consider a repeat DEXA in 5 years or sooner, or if there is a new clinical indication. All treatment decisions require clinical judgment and consideration of individual patient factors, including patient preferences, comorbidities, previous drug use, risk factors not captured in the FRAX model (e.g., frailty, falls, vitamin D deficiency, increased bone turnover, interval significant decline in bone density ) and possible under- or over-estimation of fracture risk by FRAX. In addition, the NOF Guide recommends that FDA-approved medical therapies be considered in postmenopausal women and men age >= 50 years with a: * Hip or vertebral (clinical or morphometric) fracture * T-score of <=-2.5 at the spine or hip * Ten-year fracture probability by FRAX of >= 3% for hip fracture or >=20% for major osteoporotic fracture. People with diagnosed cases of osteoporosis or at high risk for fracture should have regular bone mineral density tests. For patients eligible for Medicare, routine testing is allowed once every 2 years. The testing frequency can be increased to one year for patients who have rapidly progressing disease, those who are receiving or discontinuing medical therapy to restore bone mass, or have additional risk factors. Dictated by: Ham Tracy M.D. on 04/21/2024 at 14:00 Approved by: Ham Tracy M.D. on 04/21/2024 at 14:04
[2024-04-23 10:10] LABS: Fecal Immunochemical Test Negative (Negative)
== END ==
PROVIDERS: Family Provider Family Medicine Geriatric Medicine; PCP Family Medicine; Referring Provider Family Medicine; Visit Provider Family Medicine
DX: Z78.0 Asymptomatic menopausal state (principal); Z13.820 Encounter for screening for osteoporosis; Z12.11 Encounter for screening for malignant neoplasm of colon
CPT/HCPCS: 77080; 82274

== ENCOUNTER 2024-06-05 08:15 | Outpatient (RCR) | payer MEDICARE, OTHER, SELFPAY ==
--- NOTE | 2024-03-11 15:34 | PT.OPPOC ---
Physical, Occupational & Speech Therapy At [facility] Current Diagnoses Pain in left shoulder (03/11/24) Stiffness of left shoulder, not elsewhere classified (03/11/24) Weakness (03/11/24) Visit Care Team Role Provider Type Francesca Pastor MD Family Provider Physician Specialty: Family Practice Address: [address], [place], [address] Email: [email or web address] Jayson Weldon DO Attending Provider Physician Primary Care Provider Referring Provider Specialty: [facility] Address: [address] [place] [address], [facility] [address], [place], [address] Email: [email or web address] Plan Of Care PT-OP-B Current Condition Start: 03/11/24 07:29 Freq: Status: Active Protocol: Document 03/11/24 08:18 NM (Rec: 03/11/24 09:01 NM [id number]) Current Condition History of Current Condition Onset Date November 2023 Current Complaints pain, mobility, strength History of Current Condition Pt presents with L shoulder pain, starting about 4 months ago since November. Pt had been moving boxes and woke up one morning with pain. She states that her pain has improved but still bothers her. She reports that she has pain with lifting (e.g. grocery bag), abduction, reaching overhead, waving, driving (tends to use L hand more, especially with cross body), holding steering wheel position, lifting or holding her cast iron hanson, and sleeping (better with body pillow) if lying on L side or if sleeping without hugging pillow. No hx of previous shoulder injuries, neck injuries. No numbness or tingling. States that long sitting activities make her L shoulder feel worse. Feels likes it catches when moving , does not dislocate or sublux Prior Treatments and Tests no previous imaging or treatment for L shoulder Treatment Goals Patient/Caregiver Goals make it stop hurting PT-OP-T Assessment and Plan Start: 03/11/24 07:29 Freq: Status: Active Protocol: Document 03/11/24 08:18 NM (Rec: 03/11/24 09:01 NM [id number]) Physical Therapy Assessment Rehab Potential Rehabilitation Potential Good Evaluation Complexity Number of Personal Factors/Comorbidities 1-2 Number of Body Systems Impaired 1-2 Clinical Presentation at Evaluation Stable Impairments Impairments Activity Tolerance,Functional Activities,Functional Mobility ,Integument,Pain,Posture,ROM, Sensation,Soft Tissue Mobility ,Strength,Transfers Goals Six Impairment strength flex/abd 3+/5 Short Term Goal (STG) Pt will improve L shoulder flexion and abduction strength to at least 4-/5 in order to demonstrate improved strength for reaching, lifting, ADLs STG Duration 8 weeks Health Information Technologist Goal (LTG) Pt will improve L shoulder flexion and abduction strength to at least 4/5 in order to demonstrate improved strength for reaching, lifting, ADLs LTG Duration 12 weeks Five Impairment strength ER/IR 4-/5 Short Term Goal (STG) Pt will improve L shoulder ER and IR strength to at least 4/ 5 MMT in order to demonstrate improved stabilization during reaching and lifting STG Duration 6 weeks Assisted Goal (LTG) Pt will improve L shoulder ER and IR strength to at least 4+ /5 MMT in order to demonstrate improved stabilization during reaching and lifting LTG Duration 12 weeks Four Impairment ROM IR apley Short Term Goal (STG) Pt will improve L shoulder IR apley scratch test to at least L1 in order to demonstrate improved ROM for dressing/ grooming STG Duration 8 weeks Assisted Goal (LTG) Pt will improve L shoulder IR apley scratch test to at least T10 in order to demonstrate improved ROM for dressing/ grooming LTG Duration 12 weeks Three Impairment ROM ER apley Short Term Goal (STG) Pt will improve L shoulder ER apley scratch test to at least C7 in order to demonstrate improved ROM for dressing/ grooming STG Duration 6 weeks Health Information Technologist Goal (LTG) Pt will improve L shoulder ER apley scratch test to at least T2 in order to demonstrate improved ROM for dressing/ grooming LTG Duration 12 weeks Two Impairment quickdash: 47.7% impairment Short Term Goal (STG) Pt will decrease impairment score by 11% (1 MCID) in order to demonstrate improved symptom management and QOL STG Duration 6 weeks Health Information Technologist Goal (LTG) Pt will decrease impairment score to <20% in order to demonstrate improved symptom management and QOL LTG Duration 12 weeks One Impairment ROM L flex and abd Short Term Goal (STG) Pt will improve L shoulder flexion and abduction to at least 140 deg in order to demonstrate increased ROM for reaching STG Duration 8 weeks Health Information Technologist Goal (LTG) Pt will improve L shoulder flexion and abduction to at least 160 deg in order to demonstrate increased ROM for reaching LTG Duration 12 weeks Assessment Summary Assessment Pt is a 63 y.o. female presenting with L shoulder pain beginning several months ago without clear PRIYANK. She has been moving and lifting boxes . Pt's symptoms are consistent with impingement related to L shoulder weakness, especially her rotator cuff. Pt has limitations in L scapulohumeral mechanics during elevation, in addition to global L shoulder weakness in flexion/abduction and ROM limitations. Pt has impairments in ROM, strength, ADLs, lifting, reaching, carrying, sleeping, pain management, and activity tolerance. Pt's symptoms have improved since initial onset, but continue to limit her ability to perform her ADLs/ IADLs. PT educated pt on exam findings and plan of care, in addition to initiating HEP to improve scapular mechanics and rotator cuff strength. Pt would benefit from skilled PT for L shoulder mobility, strengthening, and activity modification in order to improve symptom management and QOL. Physical Therapy Plan Frequency and Duration Frequency of Treatment 2x/Week Duration of treatment (weeks) 12 Plan of Care Start Date 03/11/24 Plan of Care End Date 06/05/24 Therapeutic Interventions Therapeutic Interventions Gait Training,Home Exercise Program,Joint Mobilizations, Manual Therapy,Neuromuscular Re-education,Orthotic/ Prosthetic Management,Patient/ Caregiver Education,Self-Care/ Home Management,Sensory Integration,Soft Tissue Mobilization,Taping, Therapeutic Activities, Therapeutic Exercises Modalities Cold Pack/Ice Massage,Electric Stimulation,Hot Packs, Ultrasound Next Visit Focus/Plan Next Note Type Treatment Note Next Visit Plan joint mobilizations, soft tissue mobilization AAROM/AROM, review HEP. self mobilization, periscapular strength Plan of Care Dates Plan of Care Start Date 03/11/24 Plan of Care End Date 06/05/24 Electronically Signed by: Janice Mckenzie, PT 03/12/24 5218 If you are in agreement with this Plan of Care, please return a signed and dated copy. I have reviewed this Plan of Care and certify that the skilled therapy services above are required to meet the patient?s needs. Physician Signature Date Printed Name and Credentials Clinical Instructor Signature Printed Name and Credentials
--- NOTE | 2024-03-11 15:34 | PT.OIE ---
Current Diagnoses Pain in left shoulder (03/11/24) Stiffness of left shoulder, not elsewhere classified (03/11/24) Weakness (03/11/24) Past Medical History (Last Updated 01/31/24 @ 13:35 by Jayson Weldon DO) Benign essential HTN Foot pain (~1999) Fracture (~2017) Hearing loss (~2022) History of DVT (deep vein thrombosis) IFG (impaired fasting glucose) Obesity (BMI 30.0-34.9) Vaginal atrophy (~2022) Vision disorder Past Surgical History (Last Updated 01/17/24 @ 18:50 by Madhuri Diaz) Anesthesia History of knee surgery (~2010) Schatzki's ring (~2012) Status post left partial knee replacement (~2015) Status post right partial knee replacement (~2011) Visit Care Team Role Provider Type Francesca Pastor MD Family Provider Physician Specialty: Family Practice Address: [address], [place], [place], [facility] Email: [email or web address] Jayson Weldon DO Attending Provider Physician Primary Care Provider Referring Provider Specialty: Family Practice Address: [address] [place] [address], [address], [facility] Email: [email or web address] Physical Therapy Initial Evaluation PT-OP-A Visit Information Start: 03/11/24 07:29 Freq: Status: Active Protocol: Document 03/11/24 08:18 NM (Rec: 03/11/24 09:01 NM [id number]) Out-Patient Physical Therapy Visit Information Visit Information Visit Type Initial Evaluation Visit Note KX after 19 visits Visit Start Time 08:18 Visit Stop Time 09:00 Visit Number 1 Evaluation Information Evaluation Date 03/11/24 Precautions Precautions blood pressure and diabetes PT-OP-B Current Condition Start: 03/11/24 07:29 Freq: Status: Active Protocol: Document 03/11/24 08:18 NM (Rec: 03/11/24 09:01 NM [id number]) Current Condition History of Current Condition Onset Date November 2023 Current Complaints pain, mobility, strength History of Current Condition Pt presents with L shoulder pain, starting about 4 months ago since November. Pt had been moving boxes and woke up one morning with pain. She states that her pain has improved but still bothers her. She reports that she has pain with lifting (e.g. grocery bag), abduction, reaching overhead, waving, driving (tends to use L hand more, especially with cross body), holding steering wheel position, lifting or holding her cast iron hanson, and sleeping (better with body pillow) if lying on L side or if sleeping without hugging pillow. No hx of previous shoulder injuries, neck injuries. No numbness or tingling. States that long sitting activities make her L shoulder feel worse. Feels likes it catches when moving , does not dislocate or sublux Prior Treatments and Tests no previous imaging or treatment for L shoulder Treatment Goals Patient/Caregiver Goals make it stop hurting PT-OP-C Subjective Start: 03/11/24 07:29 Freq: Status: Active Protocol: Document 03/11/24 08:18 NM (Rec: 03/11/24 09:01 NM [id number]) OP-PT Subjective Patient Comments Patient Comments pt consents to participate in evaluation Patient Questionnaires Quick Dash- Upper Extremity Quick Dash UE Score 47.7% OP-PT Pain Assessment Location L shoulder Pain Location Details posterior cuff, axilla, anterior shoulder Intensity 5 Scale Used Numeric (0 - 10) Description Aching,Sharp Description- Other some discomfort at rest Frequency Frequent Pain Aggravating Factors Position,ADL's,Activity, Exercise,Sitting,Lifting Pain Alleviating Factors Heat Other Pain Alleviating Factors CBD ointment PT-OP-E Functional Tests Start: 03/11/24 07:29 Freq: Status: Active Protocol: Document 03/11/24 08:18 NM (Rec: 03/11/24 09:01 NM [id number]) Functional Tests Apley's Scratch Test Action 1- Left distal clavicle, painful Action 1- Right posterior cuff Action 2- Left base of occiput, painful Action 2- Right T2 Action 3- Left L5, painful Action 3- Right T10 PT-OP-F Manual Assessment Start: 03/11/24 07:29 Freq: Status: Active Protocol: Document 03/11/24 08:18 NM (Rec: 03/11/24 09:01 NM [id number]) Manual Assessments Soft Tissue Assessment Soft Tissue Mobility Assessment Restrictions of cervical paraspinals, rhomboids, lat Joint Mobility Assessment Joint Mobility Assessment Decreased humeral gliding posteriorly and inferiorly during both AROM and PROM, early scapular mobility during arm elevation and return PT-OP-J Posture/Palpation/Skin Start: 03/11/24 07:29 Freq: Status: Active Protocol: Document 03/11/24 08:18 NM (Rec: 03/11/24 12:58 NM [id number]) Posture Evaluation Position Standing Head/C-Spine Posture Forward Head Shoulder Posture (L) Forward,(R) Forward,(L) Elevated Scapula Posture (L) Elevated,(L) Tipped Palpation Assessment Location L shoulder Palpation Details tightness of periscapulars especially rhomboids and cervical paraspinals on L side no tenderness of long head biceps tendon, rotator cuff, AC joint PT-OP-K Range of Motion Start: 03/11/24 07:29 Freq: Status: Active Protocol: Document 03/11/24 08:18 NM (Rec: 03/11/24 09:01 NM [id number]) Cervical Spine Range of Motion Cervical Spine Active Degrees Flexion 60 Extension 35 Rotation Left 75 Rotation Right 65 Lateral Flexion Left 35 Lateral Flexion Right 35 Comments L rotation pulling sensation Shoulder Goniometric Range of Motion Shoulder Right Flexion 160 Extension 60 Abduction 160 External Rotation at 90 degrees 80 Abduction External Rotation at 0 degrees Abduction 60 Internal Rotation 80 Left Flexion 130 Extension 50 Abduction 125 External Rotation at 90 degrees 65 Abduction External Rotation at 0 degrees Abduction 60 Internal Rotation 60 Comments pain with all, IR worse and abd PT-OP-L Special Tests Start: 03/11/24 07:29 Freq: Status: Active Protocol: Document 03/11/24 08:18 NM (Rec: 03/11/24 09:01 NM [id number]) Special Tests Cervical Spine Special Tests Spurling's Test Test Results - Shoulder Special Tests Lift-Off Rotator Cuff Test Results + Comments painful with lift off but no limitation in strength Empty Can Test Results + Comments IR more painful than ER, both weak Passive ER Rotator Cuff Test Results - Neer Impingement Test Results + [place] Amish Impingement Test Results + Elevation Impingement Test Results + PT-OP-M Strength Start: 03/11/24 07:29 Freq: Status: Active Protocol: Document 03/11/24 08:18 NM (Rec: 03/11/24 09:01 NM [id number]) Cervical Spine Strength Cervical Spine Manual Muscle Testing Flexion (C1-2) 5 Normal Extension 5 Normal Rotation Left 5 Normal Rotation Right 5 Normal Lateral Flexion Left (C3) 5 Normal Lateral Flexion Right (C3) 5 Normal Shoulder Strength Shoulder Manual Muscle Testing Right Flexion 4+ Good+ Abduction (C5) 4 Good External Rotation 4+ Good+ Internal Rotation 4 Good Horizontal Abduction 4+ Good+ Horizontal Adduction 4+ Good+ Left Flexion 3+ Fair+ Abduction (C5) 3+ Fair+ External Rotation 4- Good- Internal Rotation 4- Good- Horizontal Abduction 4 Good Horizontal Adduction 4- Good- Comments pain with flex, abd, HADD Elbow/Forearm Strength Elbow and Forearm Manual Muscle Testing Right Flexion (C6) 4+ Good+ Extension (C7) 4+ Good+ Left Flexion (C6) 4+ Good+ Extension (C7) 4+ Good+ PT-OP-Q Treatments Start: 03/11/24 07:29 Freq: Status: Active Protocol: Document 03/11/24 08:18 NM (Rec: 03/11/24 09:01 NM [id number]) Therapeutic Exercises Sidelying Exercises open book Side left Reps/Minutes 10 Comments slight twinge Standing Exercises scapular retractions Standing Exercise Name HEP Side bilateral Reps/Minutes 10 with 2 hold Comments cued for form rotator cuff Standing Exercise Name walkouts (isometric)- HEP Side left Resistance level 1 band Equipment Used towel roll between body/arm Reps/Minutes 10 ea Comments pain free, cued for form initially Other Exercises self soft tissue mobilization Other Exercise Name rhomboid- HEP Side left Equipment Used racquetball in pillowcase Reps/Minutes 3 minutes Comments edu to put in pillowcase Self-Care/Home Management Treatment Education Patient Education Joint Protection,Pain Management Other Education Brief education on sleeping position with body pillow in sidelying for L shoulder support PT-OP-T Assessment and Plan Start: 03/11/24 07:29 Freq: Status: Active Protocol: Document 03/11/24 08:18 NM (Rec: 03/11/24 09:01 NM [id number]) Physical Therapy Assessment Rehab Potential Rehabilitation Potential Good Evaluation Complexity Number of Personal Factors/Comorbidities 1-2 Number of Body Systems Impaired 1-2 Clinical Presentation at Evaluation Stable Impairments Impairments Activity Tolerance,Functional Activities,Functional Mobility ,Integument,Pain,Posture,ROM, Sensation,Soft Tissue Mobility ,Strength,Transfers Goals Six Impairment strength flex/abd 3+/5 Short Term Goal (STG) Pt will improve L shoulder flexion and abduction strength to at least 4-/5 in order to demonstrate improved strength for reaching, lifting, ADLs STG Duration 8 weeks Supplier Quality Goal (LTG) Pt will improve L shoulder flexion and abduction strength to at least 4/5 in order to demonstrate improved strength for reaching, lifting, ADLs LTG Duration 12 weeks Five Impairment strength ER/IR 4-/5 Short Term Goal (STG) Pt will improve L shoulder ER and IR strength to at least 4/ 5 MMT in order to demonstrate improved stabilization during reaching and lifting STG Duration 6 weeks Supplier Quality Goal (LTG) Pt will improve L shoulder ER and IR strength to at least 4+ /5 MMT in order to demonstrate improved stabilization during reaching and lifting LTG Duration 12 weeks Four Impairment ROM IR apley Short Term Goal (STG) Pt will improve L shoulder IR apley scratch test to at least L1 in order to demonstrate improved ROM for dressing/ grooming STG Duration 8 weeks Supplier Quality Goal (LTG) Pt will improve L shoulder IR apley scratch test to at least T10 in order to demonstrate improved ROM for dressing/ grooming LTG Duration 12 weeks Three Impairment ROM ER apley Short Term Goal (STG) Pt will improve L shoulder ER apley scratch test to at least C7 in order to demonstrate improved ROM for dressing/ grooming STG Duration 6 weeks Supplier Quality Goal (LTG) Pt will improve L shoulder ER apley scratch test to at least T2 in order to demonstrate improved ROM for dressing/ grooming LTG Duration 12 weeks Two Impairment quickdash: 47.7% impairment Short Term Goal (STG) Pt will decrease impairment score by 11% (1 MCID) in order to demonstrate improved symptom management and QOL STG Duration 6 weeks Supplier Quality Goal (LTG) Pt will decrease impairment score to <20% in order to demonstrate improved symptom management and QOL LTG Duration 12 weeks One Impairment ROM L flex and abd Short Term Goal (STG) Pt will improve L shoulder flexion and abduction to at least 140 deg in order to demonstrate increased ROM for reaching STG Duration 8 weeks Supplier Quality Goal (LTG) Pt will improve L shoulder flexion and abduction to at least 160 deg in order to demonstrate increased ROM for reaching LTG Duration 12 weeks Assessment Summary Assessment Pt is a 63 y.o. female presenting with L shoulder pain beginning several months ago without clear PRIYANK. She has been moving and lifting boxes . Pt's symptoms are consistent with impingement related to L shoulder weakness, especially her rotator cuff. Pt has limitations in L scapulohumeral mechanics during elevation, in addition to global L shoulder weakness in flexion/abduction and ROM limitations. Pt has impairments in ROM, strength, ADLs, lifting, reaching, carrying, sleeping, pain management, and activity tolerance. Pt's symptoms have improved since initial onset, but continue to limit her ability to perform her ADLs/ IADLs. PT educated pt on exam findings and plan of care, in addition to initiating HEP to improve scapular mechanics and rotator cuff strength. Pt would benefit from skilled PT for L shoulder mobility, strengthening, and activity modification in order to improve symptom management and QOL. Physical Therapy Plan Frequency and Duration Frequency of Treatment 2x/Week Duration of treatment (weeks) 12 Plan of Care Start Date 03/11/24 Plan of Care End Date 06/05/24 Therapeutic Interventions Therapeutic Interventions Gait Training,Home Exercise Program,Joint Mobilizations, Manual Therapy,Neuromuscular Re-education,Orthotic/ Prosthetic Management,Patient/ Caregiver Education,Self-Care/ Home Management,Sensory Integration,Soft Tissue Mobilization,Taping, Therapeutic Activities, Therapeutic Exercises Modalities Cold Pack/Ice Massage,Electric Stimulation,Hot Packs, Ultrasound Next Visit Focus/Plan Next Note Type Treatment Note Next Visit Plan joint mobilizations, soft tissue mobilization AAROM/AROM, review HEP. self mobilization, periscapular strength
--- NOTE | 2024-03-16 12:53 | PT.OTN ---
Current Diagnoses Pain in left shoulder (03/16/24) Stiffness of left shoulder, not elsewhere classified (03/16/24) Weakness (03/16/24) Physical Therapy Treatment Note PT-OP-A Visit Information Start: 03/11/24 07:29 Freq: Status: Active Protocol: Document 03/16/24 08:17 NM (Rec: 03/16/24 09:03 NM [id number]) Out-Patient Physical Therapy Visit Information Visit Information Visit Type Treatment Note Visit Note KX after 19 visits Visit Start Time 08:20 Visit Stop Time 09:00 Visit Number 2 Evaluation Information Evaluation Date 03/11/24 Precautions Precautions blood pressure and diabetes PT-OP-B Current Condition Start: 03/11/24 07:29 Freq: Status: Active Protocol: Document 03/11/24 08:18 NM (Rec: 03/11/24 09:01 NM [id number]) Current Condition History of Current Condition Onset Date November 2023 Current Complaints pain, mobility, strength History of Current Condition Pt presents with L shoulder pain, starting about 4 months ago since November. Pt had been moving boxes and woke up one morning with pain. She states that her pain has improved but still bothers her. She reports that she has pain with lifting (e.g. grocery bag), abduction, reaching overhead, waving, driving (tends to use L hand more, especially with cross body), holding steering wheel position, lifting or holding her cast iron hanson, and sleeping (better with body pillow) if lying on L side or if sleeping without hugging pillow. No hx of previous shoulder injuries, neck injuries. No numbness or tingling. States that long sitting activities make her L shoulder feel worse. Feels likes it catches when moving , does not dislocate or sublux Prior Treatments and Tests no previous imaging or treatment for L shoulder Treatment Goals Patient/Caregiver Goals make it stop hurting PT-OP-C Subjective Start: 03/11/24 07:29 Freq: Status: Active Protocol: Document 03/16/24 08:17 NM (Rec: 03/16/24 09:03 NM [id number]) OP-PT Subjective Patient Comments Patient Comments Pt reports doing better with L shoulder but states that still painful. Had company all weekend, states did not perform many banded exercises for rotator cuff. PT-OP-E Functional Tests Start: 03/11/24 07:29 Freq: Status: Active Protocol: Document 03/11/24 08:18 NM (Rec: 03/11/24 09:01 NM [id number]) Functional Tests Apley's Scratch Test Action 1- Left distal clavicle, painful Action 1- Right posterior cuff Action 2- Left base of occiput, painful Action 2- Right T2 Action 3- Left L5, painful Action 3- Right T10 PT-OP-F Manual Assessment Start: 03/11/24 07:29 Freq: Status: Active Protocol: Document 03/11/24 08:18 NM (Rec: 03/11/24 09:01 NM [id number]) Manual Assessments Soft Tissue Assessment Soft Tissue Mobility Assessment Restrictions of cervical paraspinals, rhomboids, lat Joint Mobility Assessment Joint Mobility Assessment Decreased humeral gliding posteriorly and inferiorly during both AROM and PROM, early scapular mobility during arm elevation and return PT-OP-J Posture/Palpation/Skin Start: 03/11/24 07:29 Freq: Status: Active Protocol: Document 03/11/24 08:18 NM (Rec: 03/11/24 12:58 NM [id number]) Posture Evaluation Position Standing Head/C-Spine Posture Forward Head Shoulder Posture (L) Forward,(R) Forward,(L) Elevated Scapula Posture (L) Elevated,(L) Tipped Palpation Assessment Location L shoulder Palpation Details tightness of periscapulars especially rhomboids and cervical paraspinals on L side no tenderness of long head biceps tendon, rotator cuff, AC joint PT-OP-K Range of Motion Start: 03/11/24 07:29 Freq: Status: Active Protocol: Document 03/11/24 08:18 NM (Rec: 03/11/24 09:01 NM [id number]) Cervical Spine Range of Motion Cervical Spine Active Degrees Flexion 60 Extension 35 Rotation Left 75 Rotation Right 65 Lateral Flexion Left 35 Lateral Flexion Right 35 Comments L rotation pulling sensation Shoulder Goniometric Range of Motion Shoulder Right Flexion 160 Extension 60 Abduction 160 External Rotation at 90 degrees 80 Abduction External Rotation at 0 degrees Abduction 60 Internal Rotation 80 Left Flexion 130 Extension 50 Abduction 125 External Rotation at 90 degrees 65 Abduction External Rotation at 0 degrees Abduction 60 Internal Rotation 60 Comments pain with all, IR worse and abd PT-OP-L Special Tests Start: 03/11/24 07:29 Freq: Status: Active Protocol: Document 03/11/24 08:18 NM (Rec: 03/11/24 09:01 NM [id number]) Special Tests Cervical Spine Special Tests Spurling's Test Test Results - Shoulder Special Tests Lift-Off Rotator Cuff Test Results + Comments painful with lift off but no limitation in strength Empty Can Test Results + Comments IR more painful than ER, both weak Passive ER Rotator Cuff Test Results - Neer Impingement Test Results + Tirado Amish Impingement Test Results + Elevation Impingement Test Results + PT-OP-M Strength Start: 03/11/24 07:29 Freq: Status: Active Protocol: Document 03/11/24 08:18 NM (Rec: 03/11/24 09:01 NM [id number]) Cervical Spine Strength Cervical Spine Manual Muscle Testing Flexion (C1-2) 5 Normal Extension 5 Normal Rotation Left 5 Normal Rotation Right 5 Normal Lateral Flexion Left (C3) 5 Normal Lateral Flexion Right (C3) 5 Normal Shoulder Strength Shoulder Manual Muscle Testing Right Flexion 4+ Good+ Abduction (C5) 4 Good External Rotation 4+ Good+ Internal Rotation 4 Good Horizontal Abduction 4+ Good+ Horizontal Adduction 4+ Good+ Left Flexion 3+ Fair+ Abduction (C5) 3+ Fair+ External Rotation 4- Good- Internal Rotation 4- Good- Horizontal Abduction 4 Good Horizontal Adduction 4- Good- Comments pain with flex, abd, HADD Elbow/Forearm Strength Elbow and Forearm Manual Muscle Testing Right Flexion (C6) 4+ Good+ Extension (C7) 4+ Good+ Left Flexion (C6) 4+ Good+ Extension (C7) 4+ Good+ PT-OP-Q Treatments Start: 03/11/24 07:29 Freq: Status: Active Protocol: Document 03/16/24 08:17 NM (Rec: 03/16/24 09:03 NM [id number]) Therapeutic Exercises Supine Exercises flexion + ER Supine Exercise Name miniband flexion Side bilateral Resistance level 1 Reps/Minutes 2x5 Comments pain free but challenging and fatiguing AAROM Supine Exercise Name 1. flexion, 2. abduction Side bilateral Reps/Minutes 10 ea Comments resisted eccentric flexion w/ level 1 band to dec discomfort Sidelying Exercises scapular clock Sidelying Exercise Name adduction/retraction and depression, small elevation Side left Reps/Minutes 10 Comments pain free; cued to remain neutral vs anterior humeral movement Sitting Exercises inferior glide Sitting Exercise Name self inferior glide Side left Resistance R assist L Reps/Minutes 10 with 1 hold Comments cued for positioning and correct execution, pain free Standing Exercises scapular retractions Standing Exercise Name HEP review- progressed to rows Side bilateral Resistance level 2 band Reps/Minutes 2x10 with 2 rotator cuff Standing Exercise Name walkouts (isometric)- HEP review Side left Resistance level 1 band Equipment Used towel roll between body/arm Reps/Minutes 15 ea Comments pain free, but challenging Manual Therapy Treatment Consent Patient gave verbal consent for manual Yes treatment Soft Tissue Mobilization L shoulder Body Location rhomboid, rotator cuff, lat, pec, subscapularis, UT, LS Mobilization Type Rolling,Sustained Pressure Intensity/Depth Moderate Body Position Sidelying Comments Trigger points at LS and subscapularis. Tenderness at lat, subscapularis. Tightness of rhomboids, lat, pec. Reduced with mobilization. Monitored for pain Joint Mobilizations L scapulothoracic Direction adduction, retraction Grade III Body Position Sidelying Reps/Duration 10 ea Comments Decreased mobility into add/ retraction. Demos strong elevation L GHJ Direction post, inf Grade III Body Position Hooklying Reps/Duration 3x30 Comments Monitored for pain. Increased anterior humeral positioning, decreased inferior glide. Improved post mobilization PT-OP-T Assessment and Plan Start: 03/11/24 07:29 Freq: Status: Active Protocol: Document 03/16/24 08:17 NM (Rec: 03/16/24 09:03 NM [id number]) Physical Therapy Assessment Goals Six Impairment strength flex/abd 3+/5 Short Term Goal (STG) Pt will improve L shoulder flexion and abduction strength to at least 4-/5 in order to demonstrate improved strength for reaching, lifting, ADLs STG Duration 8 weeks [employer] Goal (LTG) Pt will improve L shoulder flexion and abduction strength to at least 4/5 in order to demonstrate improved strength for reaching, lifting, ADLs LTG Duration 12 weeks Five Impairment strength ER/IR 4-/5 Short Term Goal (STG) Pt will improve L shoulder ER and IR strength to at least 4/ 5 MMT in order to demonstrate improved stabilization during reaching and lifting STG Duration 6 weeks Fdc Goal (LTG) Pt will improve L shoulder ER and IR strength to at least 4+ /5 MMT in order to demonstrate improved stabilization during reaching and lifting LTG Duration 12 weeks Four Impairment ROM IR apley Short Term Goal (STG) Pt will improve L shoulder IR apley scratch test to at least L1 in order to demonstrate improved ROM for dressing/ grooming STG Duration 8 weeks Fdc Goal (LTG) Pt will improve L shoulder IR apley scratch test to at least T10 in order to demonstrate improved ROM for dressing/ grooming LTG Duration 12 weeks Three Impairment ROM ER apley Short Term Goal (STG) Pt will improve L shoulder ER apley scratch test to at least C7 in order to demonstrate improved ROM for dressing/ grooming STG Duration 6 weeks Fdc Goal (LTG) Pt will improve L shoulder ER apley scratch test to at least T2 in order to demonstrate improved ROM for dressing/ grooming LTG Duration 12 weeks Two Impairment quickdash: 47.7% impairment Impairment LEFS 48/80 Short Term Goal (STG) Pt will decrease impairment score by 11% (1 MCID) in order to demonstrate improved symptom management and QOL STG Duration 6 weeks [employer] Goal (LTG) Pt will decrease impairment score to <20% in order to demonstrate improved symptom management and QOL LTG Duration 12 weeks One Impairment ROM L flex and abd Impairment reports pain with sleeping, rolling over in bed Short Term Goal (STG) Pt will improve L shoulder flexion and abduction to at least 140 deg in order to demonstrate increased ROM for reaching STG Duration 8 weeks Fdc Goal (LTG) Pt will improve L shoulder flexion and abduction to at least 160 deg in order to demonstrate increased ROM for reaching LTG Duration 12 weeks Assessment Summary Assessment Pt tolerated session well. She has limitations in scapular motion, especially into adduction and retraction, in addition to decreased humeral posterior and inferior capsular mobility. Pt responds well to L glenohumeral joint mobilizations. Trialed supine AAROM into L flexion and abduction; fatiguing but improved mobility following joint mobilizations. Due to rotator cuff weakness, trialed resisted eccentric flexion during shoulder AAROM with dowel, which resolved L shoulder discomfort. Pt responds well to self inferior glide mobilization. Progressed to banded rows from AROM scapular retractions, minimal cues for correct executions. Pt would benefit from skilled PT for L shoulder mobility and strengthening in order to improve activity tolerance and ability to perform ADLs with less pain. Physical Therapy Plan Frequency and Duration Frequency of Treatment 2x/Week Duration of treatment (weeks) 12 Plan of Care Start Date 03/11/24 Plan of Care End Date 06/05/24 Therapeutic Interventions Therapeutic Interventions Gait Training,Home Exercise Program,Joint Mobilizations, Manual Therapy,Neuromuscular Re-education,Orthotic/ Prosthetic Management,Patient/ Caregiver Education,Self-Care/ Home Management,Sensory Integration,Soft Tissue Mobilization,Taping, Therapeutic Activities, Therapeutic Exercises Modalities Cold Pack/Ice Massage,Electric Stimulation,Hot Packs, Ultrasound Next Visit Focus/Plan Next Note Type Treatment Note Next Visit Plan Assess HEP tolerance: AAROM, self mob joint mobilizations, soft tissue mobilization AAROM/AROM with dowel, rows, miniband with flexion, scapular protraction at wall, pec stretch, low row
--- NOTE | 2024-03-18 12:11 | PT.OTN ---
Current Diagnoses Pain in left shoulder (03/18/24) Stiffness of left shoulder, not elsewhere classified (03/18/24) Weakness (03/18/24) Physical Therapy Treatment Note PT-OP-A Visit Information Start: 03/11/24 07:29 Freq: Status: Active Protocol: Document 03/18/24 08:19 NM (Rec: 03/18/24 09:01 NM [id number]) Out-Patient Physical Therapy Visit Information Visit Information Visit Type Treatment Note Visit Note KX after 19 visits Visit Start Time 08:20 Visit Stop Time 09:00 Visit Number 3 Evaluation Information Evaluation Date 03/11/24 Precautions Precautions blood pressure and diabetes PT-OP-B Current Condition Start: 03/11/24 07:29 Freq: Status: Active Protocol: Document 03/11/24 08:18 NM (Rec: 03/11/24 09:01 NM [id number]) Current Condition History of Current Condition Onset Date November 2023 Current Complaints pain, mobility, strength History of Current Condition Pt presents with L shoulder pain, starting about 4 months ago since November. Pt had been moving boxes and woke up one morning with pain. She states that her pain has improved but still bothers her. She reports that she has pain with lifting (e.g. grocery bag), abduction, reaching overhead, waving, driving (tends to use L hand more, especially with cross body), holding steering wheel position, lifting or holding her cast iron hanson, and sleeping (better with body pillow) if lying on L side or if sleeping without hugging pillow. No hx of previous shoulder injuries, neck injuries. No numbness or tingling. States that long sitting activities make her L shoulder feel worse. Feels likes it catches when moving , does not dislocate or sublux Prior Treatments and Tests no previous imaging or treatment for L shoulder Treatment Goals Patient/Caregiver Goals make it stop hurting PT-OP-C Subjective Start: 03/11/24 07:29 Freq: Status: Active Protocol: Document 03/18/24 08:19 NM (Rec: 03/18/24 09:01 NM [id number]) OP-PT Subjective Patient Comments Patient Comments Pt reports L shoulder feel better at rest. States still catches, but not as often. Has questions with HEP. She also did a shoulder IR movement while reaching and had a pop this am, but states has not replicated. PT-OP-E Functional Tests Start: 03/11/24 07:29 Freq: Status: Active Protocol: Document 03/11/24 08:18 NM (Rec: 03/11/24 09:01 NM [id number]) Functional Tests Apley's Scratch Test Action 1- Left distal clavicle, painful Action 1- Right posterior cuff Action 2- Left base of occiput, painful Action 2- Right T2 Action 3- Left L5, painful Action 3- Right T10 PT-OP-F Manual Assessment Start: 03/11/24 07:29 Freq: Status: Active Protocol: Document 03/11/24 08:18 NM (Rec: 03/11/24 09:01 NM [id number]) Manual Assessments Soft Tissue Assessment Soft Tissue Mobility Assessment Restrictions of cervical paraspinals, rhomboids, lat Joint Mobility Assessment Joint Mobility Assessment Decreased humeral gliding posteriorly and inferiorly during both AROM and PROM, early scapular mobility during arm elevation and return PT-OP-J Posture/Palpation/Skin Start: 03/11/24 07:29 Freq: Status: Active Protocol: Document 03/11/24 08:18 NM (Rec: 03/11/24 12:58 NM [id number]) Posture Evaluation Position Standing Head/C-Spine Posture Forward Head Shoulder Posture (L) Forward,(R) Forward,(L) Elevated Scapula Posture (L) Elevated,(L) Tipped Palpation Assessment Location L shoulder Palpation Details tightness of periscapulars especially rhomboids and cervical paraspinals on L side no tenderness of long head biceps tendon, rotator cuff, AC joint PT-OP-K Range of Motion Start: 03/11/24 07:29 Freq: Status: Active Protocol: Document 03/11/24 08:18 NM (Rec: 03/11/24 09:01 NM [id number]) Cervical Spine Range of Motion Cervical Spine Active Degrees Flexion 60 Extension 35 Rotation Left 75 Rotation Right 65 Lateral Flexion Left 35 Lateral Flexion Right 35 Comments L rotation pulling sensation Shoulder Goniometric Range of Motion Shoulder Right Flexion 160 Extension 60 Abduction 160 External Rotation at 90 degrees 80 Abduction External Rotation at 0 degrees Abduction 60 Internal Rotation 80 Left Flexion 130 Extension 50 Abduction 125 External Rotation at 90 degrees 65 Abduction External Rotation at 0 degrees Abduction 60 Internal Rotation 60 Comments pain with all, IR worse and abd PT-OP-L Special Tests Start: 03/11/24 07:29 Freq: Status: Active Protocol: Document 03/11/24 08:18 NM (Rec: 03/11/24 09:01 NM [id number]) Special Tests Cervical Spine Special Tests Spurling's Test Test Results - Shoulder Special Tests Lift-Off Rotator Cuff Test Results + Comments painful with lift off but no limitation in strength Empty Can Test Results + Comments IR more painful than ER, both weak Passive ER Rotator Cuff Test Results - Neer Impingement Test Results + Tirado Amish Impingement Test Results + Elevation Impingement Test Results + PT-OP-M Strength Start: 03/11/24 07:29 Freq: Status: Active Protocol: Document 03/11/24 08:18 NM (Rec: 03/11/24 09:01 NM [id number]) Cervical Spine Strength Cervical Spine Manual Muscle Testing Flexion (C1-2) 5 Normal Extension 5 Normal Rotation Left 5 Normal Rotation Right 5 Normal Lateral Flexion Left (C3) 5 Normal Lateral Flexion Right (C3) 5 Normal Shoulder Strength Shoulder Manual Muscle Testing Right Flexion 4+ Good+ Abduction (C5) 4 Good External Rotation 4+ Good+ Internal Rotation 4 Good Horizontal Abduction 4+ Good+ Horizontal Adduction 4+ Good+ Left Flexion 3+ Fair+ Abduction (C5) 3+ Fair+ External Rotation 4- Good- Internal Rotation 4- Good- Horizontal Abduction 4 Good Horizontal Adduction 4- Good- Comments pain with flex, abd, HADD Elbow/Forearm Strength Elbow and Forearm Manual Muscle Testing Right Flexion (C6) 4+ Good+ Extension (C7) 4+ Good+ Left Flexion (C6) 4+ Good+ Extension (C7) 4+ Good+ PT-OP-Q Treatments Start: 03/11/24 07:29 Freq: Status: Active Protocol: Document 03/18/24 08:19 NM (Rec: 03/18/24 09:01 NM [id number]) Therapeutic Exercises Supine Exercises flexion + ER Supine Exercise Name miniband (HEP) Side bilateral Resistance level 1 Reps/Minutes 2x5 Comments pain free but challenging and fatiguing AAROM Supine Exercise Name HEP review: 1. flexion, 2. abduction Side bilateral Equipment Used dowel Reps/Minutes 1. 10, 10 x/ 3 hold ea, 2. 10 w/ 3 Comments 155 deg flex & w/o pain; 110 deg abd w/ pain @ end range Sitting Exercises inferior glide Sitting Exercise Name HEP review: self inferior glide Side left Resistance R assist L Reps/Minutes 10 with 1 hold Comments cued for positioning and correct execution, pain free Standing Exercises wall slide Standing Exercise Name rotator cuff wall slide Side left Resistance AROM Equipment Used pillow case Reps/Minutes 2x5 Comments fatiguing, pain free; arm slightly flexed scapular retractions Standing Exercise Name 1. rows (HEP), 2. low rows Side bilateral Resistance level 2 band > level 3 band Reps/Minutes 2x10 w/ 3 hold Comments cued for form, improved w/ reps Manual Therapy Treatment Consent Patient gave verbal consent for manual Yes treatment Soft Tissue Mobilization L shoulder Body Location rhomboid, rotator cuff, lat, pec, subscapularis, UT, LS Mobilization Type Rolling,Sustained Pressure Intensity/Depth Moderate Body Position Sidelying Comments No trigger points today. Increased tenderness along lat and posterior cuff, rhomboids . Reduced with soft tissue mobilization Joint Mobilizations L scapulothoracic Direction adduction, retraction Grade III Body Position Sidelying Reps/Duration 10 ea Comments Decreased mobility into add/ retraction, better this session. Demos strong elevation posturing L GHJ Direction post at 0 deg abd and up to 45 deg abd, inf Grade III Body Position Hooklying Reps/Duration 4x30 Comments Monitored for pain. Increased anterior humeral positioning, decreased inferior glide. Able to abd w/ inf glide above 90 deg today. Improved rolling/ gliding post mobilization PT-OP-T Assessment and Plan Start: 03/11/24 07:29 Freq: Status: Active Protocol: Document 03/18/24 08:19 NM (Rec: 03/18/24 09:01 NM [id number]) Physical Therapy Assessment Goals Six Impairment strength flex/abd 3+/5 Short Term Goal (STG) Pt will improve L shoulder flexion and abduction strength to at least 4-/5 in order to demonstrate improved strength for reaching, lifting, ADLs STG Duration 8 weeks Mail Clerk Goal (LTG) Pt will improve L shoulder flexion and abduction strength to at least 4/5 in order to demonstrate improved strength for reaching, lifting, ADLs LTG Duration 12 weeks Five Impairment strength ER/IR 4-/5 Short Term Goal (STG) Pt will improve L shoulder ER and IR strength to at least 4/ 5 MMT in order to demonstrate improved stabilization during reaching and lifting STG Duration 6 weeks Longterm Goal (LTG) Pt will improve L shoulder ER and IR strength to at least 4+ /5 MMT in order to demonstrate improved stabilization during reaching and lifting LTG Duration 12 weeks Four Impairment ROM IR apley Short Term Goal (STG) Pt will improve L shoulder IR apley scratch test to at least L1 in order to demonstrate improved ROM for dressing/ grooming STG Duration 8 weeks Longterm Goal (LTG) Pt will improve L shoulder IR apley scratch test to at least T10 in order to demonstrate improved ROM for dressing/ grooming LTG Duration 12 weeks Three Impairment ROM ER apley Short Term Goal (STG) Pt will improve L shoulder ER apley scratch test to at least C7 in order to demonstrate improved ROM for dressing/ grooming STG Duration 6 weeks Longterm Goal (LTG) Pt will improve L shoulder ER apley scratch test to at least T2 in order to demonstrate improved ROM for dressing/ grooming LTG Duration 12 weeks Two Impairment quickdash: 47.7% impairment Impairment LEFS 48/80 Short Term Goal (STG) Pt will decrease impairment score by 11% (1 MCID) in order to demonstrate improved symptom management and QOL STG Duration 6 weeks Mail Clerk Goal (LTG) Pt will decrease impairment score to <20% in order to demonstrate improved symptom management and QOL LTG Duration 12 weeks One Impairment ROM L flex and abd Impairment reports pain with sleeping, rolling over in bed Short Term Goal (STG) Pt will improve L shoulder flexion and abduction to at least 140 deg in order to demonstrate increased ROM for reaching STG Duration 8 weeks Longterm Goal (LTG) Pt will improve L shoulder flexion and abduction to at least 160 deg in order to demonstrate increased ROM for reaching LTG Duration 12 weeks Assessment Summary Assessment Pt tolerated session well. Continues to have limitaions i scapular mobility and anterior humeral positioning, which limits overhead mobility in flexion and abduction. Pt' s supine AAROM improved to 155 deg flex and 110 deg abd compared to last session. Responds well to L glenohumeral mobilizations, especially into abduction. Progressed resistance during row and low rows. Pt requires cues for form, but improved with reps. Most challenged with rotator cuff stability, especially during wall slides. Pt would benefit from skilled PT for L shoulder mobility and strength in order to improve ability to reach and lift for ADLs. Physical Therapy Plan Frequency and Duration Frequency of Treatment 2x/Week Duration of treatment (weeks) 12 Plan of Care Start Date 03/11/24 Plan of Care End Date 06/05/24 Therapeutic Interventions Therapeutic Interventions Gait Training,Home Exercise Program,Joint Mobilizations, Manual Therapy,Neuromuscular Re-education,Orthotic/ Prosthetic Management,Patient/ Caregiver Education,Self-Care/ Home Management,Sensory Integration,Soft Tissue Mobilization,Taping, Therapeutic Activities, Therapeutic Exercises Modalities Cold Pack/Ice Massage,Electric Stimulation,Hot Packs, Ultrasound Next Visit Focus/Plan Next Note Type Treatment Note Next Visit Plan Cont w/ inf and post humeral glide w/ AAROM; trial s/l for proprioception; wall slide, miniband w/ flex/ER, low row, ER/IR isotonic. Update/review HEP as needed joint mobilizations, soft tissue mobilization
--- NOTE | 2024-03-23 16:32 | PT.OTN ---
Current Diagnoses Pain in left shoulder (03/23/24) Stiffness of left shoulder, not elsewhere classified (03/23/24) Weakness (03/23/24) Physical Therapy Treatment Note PT-OP-A Visit Information Start: 03/11/24 07:29 Freq: Status: Active Protocol: Document 03/23/24 08:10 AB (Rec: 03/23/24 09:02 AB [id number]) Out-Patient Physical Therapy Visit Information Visit Information Visit Type Treatment Note Visit Note Access Code [id number] KX after 19 visits Visit Start Time 08:17 Visit Stop Time 09:01 Visit Number 4 Number of SURGICAL APPLIANCES SALESPERSON Visits 1 Evaluation Information Evaluation Date 03/11/24 Precautions Precautions blood pressure and diabetes PT-OP-B Current Condition Start: 03/11/24 07:29 Freq: Status: Active Protocol: Document 03/11/24 08:18 NM (Rec: 03/11/24 09:01 NM [id number]) Current Condition History of Current Condition Onset Date November 2023 Current Complaints pain, mobility, strength History of Current Condition Pt presents with L shoulder pain, starting about 4 months ago since November. Pt had been moving boxes and woke up one morning with pain. She states that her pain has improved but still bothers her. She reports that she has pain with lifting (e.g. grocery bag), abduction, reaching overhead, waving, driving (tends to use L hand more, especially with cross body), holding steering wheel position, lifting or holding her cast iron hanson, and sleeping (better with body pillow) if lying on L side or if sleeping without hugging pillow. No hx of previous shoulder injuries, neck injuries. No numbness or tingling. States that long sitting activities make her L shoulder feel worse. Feels likes it catches when moving , does not dislocate or sublux Prior Treatments and Tests no previous imaging or treatment for L shoulder Treatment Goals Patient/Caregiver Goals make it stop hurting PT-OP-C Subjective Start: 03/11/24 07:29 Freq: Status: Active Protocol: Document 03/23/24 08:10 AB (Rec: 03/23/24 09:02 AB [id number]) OP-PT Subjective Patient Comments Patient Comments Patient reports she thinks she is a little better. Patient comments she feel uncoordinated with abd with dowel exercise. AROM left shoulder flexion 129 deg limited by pain. PT-OP-E Functional Tests Start: 03/11/24 07:29 Freq: Status: Active Protocol: Document 03/11/24 08:18 NM (Rec: 03/11/24 09:01 NM [id number]) Functional Tests Apley's Scratch Test Action 1- Left distal clavicle, painful Action 1- Right posterior cuff Action 2- Left base of occiput, painful Action 2- Right T2 Action 3- Left L5, painful Action 3- Right T10 PT-OP-F Manual Assessment Start: 03/11/24 07:29 Freq: Status: Active Protocol: Document 03/11/24 08:18 NM (Rec: 03/11/24 09:01 NM [id number]) Manual Assessments Soft Tissue Assessment Soft Tissue Mobility Assessment Restrictions of cervical paraspinals, rhomboids, lat Joint Mobility Assessment Joint Mobility Assessment Decreased humeral gliding posteriorly and inferiorly during both AROM and PROM, early scapular mobility during arm elevation and return PT-OP-J Posture/Palpation/Skin Start: 03/11/24 07:29 Freq: Status: Active Protocol: Document 03/11/24 08:18 NM (Rec: 03/11/24 12:58 NM [id number]) Posture Evaluation Position Standing Head/C-Spine Posture Forward Head Shoulder Posture (L) Forward,(R) Forward,(L) Elevated Scapula Posture (L) Elevated,(L) Tipped Palpation Assessment Location L shoulder Palpation Details tightness of periscapulars especially rhomboids and cervical paraspinals on L side no tenderness of long head biceps tendon, rotator cuff, AC joint PT-OP-K Range of Motion Start: 03/11/24 07:29 Freq: Status: Active Protocol: Document 03/11/24 08:18 NM (Rec: 03/11/24 09:01 NM [id number]) Cervical Spine Range of Motion Cervical Spine Active Degrees Flexion 60 Extension 35 Rotation Left 75 Rotation Right 65 Lateral Flexion Left 35 Lateral Flexion Right 35 Comments L rotation pulling sensation Shoulder Goniometric Range of Motion Shoulder Right Flexion 160 Extension 60 Abduction 160 External Rotation at 90 degrees 80 Abduction External Rotation at 0 degrees Abduction 60 Internal Rotation 80 Left Flexion 130 Extension 50 Abduction 125 External Rotation at 90 degrees 65 Abduction External Rotation at 0 degrees Abduction 60 Internal Rotation 60 Comments pain with all, IR worse and abd PT-OP-L Special Tests Start: 08/14/24 07:29 Freq: Status: Active Protocol: Document 03/11/24 08:18 NM (Rec: 03/11/24 09:01 NM [id number]) Special Tests Cervical Spine Special Tests Spurling's Test Test Results - Shoulder Special Tests Lift-Off Rotator Cuff Test Results + Comments painful with lift off but no limitation in strength Empty Can Test Results + Comments IR more painful than ER, both weak Passive ER Rotator Cuff Test Results - Neer Impingement Test Results + Tirado Amish Impingement Test Results + Elevation Impingement Test Results + PT-OP-M Strength Start: 03/11/24 07:29 Freq: Status: Active Protocol: Document 03/11/24 08:18 NM (Rec: 03/11/24 09:01 NM [id number]) Cervical Spine Strength Cervical Spine Manual Muscle Testing Flexion (C1-2) 5 Normal Extension 5 Normal Rotation Left 5 Normal Rotation Right 5 Normal Lateral Flexion Left (C3) 5 Normal Lateral Flexion Right (C3) 5 Normal Shoulder Strength Shoulder Manual Muscle Testing Right Flexion 4+ Good+ Abduction (C5) 4 Good External Rotation 4+ Good+ Internal Rotation 4 Good Horizontal Abduction 4+ Good+ Horizontal Adduction 4+ Good+ Left Flexion 3+ Fair+ Abduction (C5) 3+ Fair+ External Rotation 4- Good- Internal Rotation 4- Good- Horizontal Abduction 4 Good Horizontal Adduction 4- Good- Comments pain with flex, abd, HADD Elbow/Forearm Strength Elbow and Forearm Manual Muscle Testing Right Flexion (C6) 4+ Good+ Extension (C7) 4+ Good+ Left Flexion (C6) 4+ Good+ Extension (C7) 4+ Good+ PT-OP-Q Treatments Start: 03/11/24 07:29 Freq: Status: Active Protocol: Document 03/23/24 08:10 AB (Rec: 03/23/24 09:02 AB [id number]) Therapeutic Exercises Supine Exercises pec stretches Supine Exercise Name 1. chest dry cell and battery assembler 2. supine hands behind head 3.HEPchest dry cell and battery assembler/foam roller Side bilateral Reps/Minutes 1. one min 2. 40 sec 3. 2 minutes flexion + ER Supine Exercise Name miniband (HEP) Side bilateral Resistance level 1 Reps/Minutes X10 Comments VC to stop if painful AAROM Supine Exercise Name abd Side left Equipment Used dowel Reps/Minutes X15 Comments verbal and tactile cues for slight resistance lowering Sidelying Exercises left shoulder AROM Sidelying Exercise Name ER and IR Side left Reps/Minutes X15 Comments Verbal cues and tactile cues for UE pos and movement, VC pain free range Sitting Exercises CS sidebend Side bilateral Reps/Minutes 60 sec each side X 1 Comments Monitored for pain Standing Exercises row Resistance level 2 band Reps/Minutes X15 Manual Therapy Treatment Soft Tissue Mobilization L shoulder Body Location rhomboid, rotator cuff, lat, pec, subscapularis, UT, LS Mobilization Type Rolling,Sustained Pressure Intensity/Depth Moderate Body Position Sidelying Comments increased stiffness UT, levator scap Joint Mobilizations L scapulothoracic Direction adduction, retraction Grade III Body Position Sidelying Reps/Duration 10 ea Comments Patient comments this feels good. L GHJ Direction AP and Inf Grade III Body Position Hooklying Reps/Duration X10 X 3 Comments Monitored for pain PT-OP-T Assessment and Plan Start: 03/11/24 07:29 Freq: Status: Active Protocol: Document 03/23/24 08:10 AB (Rec: 03/23/24 09:02 AB [id number]) Physical Therapy Assessment Goals Six Impairment strength flex/abd 3+/5 Short Term Goal (STG) Pt will improve L shoulder flexion and abduction strength to at least 4-/5 in order to demonstrate improved strength for reaching, lifting, ADLs STG Duration 8 weeks Fpc Goal (LTG) Pt will improve L shoulder flexion and abduction strength to at least 4/5 in order to demonstrate improved strength for reaching, lifting, ADLs LTG Duration 12 weeks Five Impairment strength ER/IR 4-/5 Short Term Goal (STG) Pt will improve L shoulder ER and IR strength to at least 4/ 5 MMT in order to demonstrate improved stabilization during reaching and lifting STG Duration 6 weeks Wood Barrel Reconditioner Goal (LTG) Pt will improve L shoulder ER and IR strength to at least 4+ /5 MMT in order to demonstrate improved stabilization during reaching and lifting LTG Duration 12 weeks Four Impairment ROM IR apley Short Term Goal (STG) Pt will improve L shoulder IR apley scratch test to at least L1 in order to demonstrate improved ROM for dressing/ grooming STG Duration 8 weeks Wood Barrel Reconditioner Goal (LTG) Pt will improve L shoulder IR apley scratch test to at least T10 in order to demonstrate improved ROM for dressing/ grooming LTG Duration 12 weeks Three Impairment ROM ER apley Short Term Goal (STG) Pt will improve L shoulder ER apley scratch test to at least C7 in order to demonstrate improved ROM for dressing/ grooming STG Duration 6 weeks Wood Barrel Reconditioner Goal (LTG) Pt will improve L shoulder ER apley scratch test to at least T2 in order to demonstrate improved ROM for dressing/ grooming LTG Duration 12 weeks Two Impairment quickdash: 47.7% impairment Impairment LEFS 48/80 Short Term Goal (STG) Pt will decrease impairment score by 11% (1 MCID) in order to demonstrate improved symptom management and QOL STG Duration 6 weeks Wood Barrel Reconditioner Goal (LTG) Pt will decrease impairment score to <20% in order to demonstrate improved symptom management and QOL LTG Duration 12 weeks One Impairment ROM L flex and abd Impairment reports pain with sleeping, rolling over in bed Short Term Goal (STG) Pt will improve L shoulder flexion and abduction to at least 140 deg in order to demonstrate increased ROM for reaching STG Duration 8 weeks Wood Barrel Reconditioner Goal (LTG) Pt will improve L shoulder flexion and abduction to at least 160 deg in order to demonstrate increased ROM for reaching LTG Duration 12 weeks Assessment Summary Assessment 139 deg AROM left shoulder flexion end of session should allow patient to reach items placed at higher levels in the home. Able to perform X 10 mini band supine with level one loop with no complaints of pain, chest dry cell and battery assembler added to HEP. Physical Therapy Plan Frequency and Duration Frequency of Treatment 2x/Week Duration of treatment (weeks) 12 Plan of Care Start Date 03/11/24 Plan of Care End Date 06/05/24 Next Visit Focus/Plan Next Note Type Treatment Note Next Visit Plan Cont w/ inf and post humeral glide w/ AAROM; trial s/l for proprioception; wall slide, miniband w/ flex/ER, low row, ER/IR isotonic. Update/review HEP as needed joint mobilizations, soft tissue mobilization
--- NOTE | 2024-03-31 08:58 | PT.OTN ---
Current Diagnoses Pain in left shoulder (03/31/24) Stiffness of left shoulder, not elsewhere classified (03/31/24) Weakness (03/31/24) Physical Therapy Treatment Note PT-OP-A Visit Information Start: 03/11/24 07:29 Freq: Status: Active Protocol: Document 03/31/24 08:11 NM (Rec: 03/31/24 08:57 NM [id number]) Out-Patient Physical Therapy Visit Information Visit Information Visit Type Treatment Note Visit Note KX after 04/22 visit Visit Start Time 08:15 Visit Stop Time 08:55 Visit Number 5 Number of PROTECTIVE SIGNAL INSTALLER HELPER Visits 0 Evaluation Information Evaluation Date 03/11/24 PT-OP-B Current Condition Start: 03/11/24 07:29 Freq: Status: Active Protocol: Document 03/11/24 08:18 NM (Rec: 03/11/24 09:01 NM [id number]) Current Condition History of Current Condition Onset Date November 2023 Current Complaints pain, mobility, strength History of Current Condition Pt presents with L shoulder pain, starting about 4 months ago since November. Pt had been moving boxes and woke up one morning with pain. She states that her pain has improved but still bothers her. She reports that she has pain with lifting (e.g. grocery bag), abduction, reaching overhead, waving, driving (tends to use L hand more, especially with cross body), holding steering wheel position, lifting or holding her cast iron hanson, and sleeping (better with body pillow) if lying on L side or if sleeping without hugging pillow. No hx of previous shoulder injuries, neck injuries. No numbness or tingling. States that long sitting activities make her L shoulder feel worse. Feels likes it catches when moving , does not dislocate or sublux Prior Treatments and Tests no previous imaging or treatment for L shoulder Treatment Goals Patient/Caregiver Goals make it stop hurting PT-OP-C Subjective Start: 03/11/24 07:29 Freq: Status: Active Protocol: Document 03/31/24 08:11 NM (Rec: 03/31/24 08:57 NM [id number]) OP-PT Subjective Patient Comments Patient Comments Pt reports that she is set back 3 weeks. Had an adverse reaction to a drug and was in bed since last appt due to dizziness. She had an increased dosage to her medications, had to call Dr sierra / Pt is about to go on 4 day trip. All medications stopped; states that could only get up and walk yesterday. Pt reports that her L shoulder is sore, states resting pain 5-6 /10. PT-OP-E Functional Tests Start: 03/11/24 07:29 Freq: Status: Active Protocol: Document 03/11/24 08:18 NM (Rec: 03/11/24 09:01 NM [id number]) Functional Tests Apley's Scratch Test Action 1- Left distal clavicle, painful Action 1- Right posterior cuff Action 2- Left base of occiput, painful Action 2- Right T2 Action 3- Left L5, painful Action 3- Right T10 PT-OP-F Manual Assessment Start: 03/11/24 07:29 Freq: Status: Active Protocol: Document 03/11/24 08:18 NM (Rec: 03/11/24 09:01 NM [id number]) Manual Assessments Soft Tissue Assessment Soft Tissue Mobility Assessment Restrictions of cervical paraspinals, rhomboids, lat Joint Mobility Assessment Joint Mobility Assessment Decreased humeral gliding posteriorly and inferiorly during both AROM and PROM, early scapular mobility during arm elevation and return PT-OP-J Posture/Palpation/Skin Start: 03/11/24 07:29 Freq: Status: Active Protocol: Document 03/11/24 08:18 NM (Rec: 03/11/24 12:58 NM [id number]) Posture Evaluation Position Standing Head/C-Spine Posture Forward Head Shoulder Posture (L) Forward,(R) Forward,(L) Elevated Scapula Posture (L) Elevated,(L) Tipped Palpation Assessment Location L shoulder Palpation Details tightness of periscapulars especially rhomboids and cervical paraspinals on L side no tenderness of long head biceps tendon, rotator cuff, AC joint PT-OP-K Range of Motion Start: 03/11/24 07:29 Freq: Status: Active Protocol: Document 03/11/24 08:18 NM (Rec: 03/11/24 09:01 NM [id number]) Cervical Spine Range of Motion Cervical Spine Active Degrees Flexion 60 Extension 35 Rotation Left 75 Rotation Right 65 Lateral Flexion Left 35 Lateral Flexion Right 35 Comments L rotation pulling sensation Shoulder Goniometric Range of Motion Shoulder Right Flexion 160 Extension 60 Abduction 160 External Rotation at 90 degrees 80 Abduction External Rotation at 0 degrees Abduction 60 Internal Rotation 80 Left Flexion 130 Extension 50 Abduction 125 External Rotation at 90 degrees 65 Abduction External Rotation at 0 degrees Abduction 60 Internal Rotation 60 Comments pain with all, IR worse and abd PT-OP-L Special Tests Start: 03/11/24 07:29 Freq: Status: Active Protocol: Document 03/11/24 08:18 NM (Rec: 03/11/24 09:01 NM [id number]) Special Tests Cervical Spine Special Tests Spurling's Test Test Results - Shoulder Special Tests Lift-Off Rotator Cuff Test Results + Comments painful with lift off but no limitation in strength Empty Can Test Results + Comments IR more painful than ER, both weak Passive ER Rotator Cuff Test Results - Neer Impingement Test Results + Tirado Amish Impingement Test Results + Elevation Impingement Test Results + PT-OP-M Strength Start: 03/11/24 07:29 Freq: Status: Active Protocol: Document 03/11/24 08:18 NM (Rec: 03/11/24 09:01 NM [id number]) Cervical Spine Strength Cervical Spine Manual Muscle Testing Flexion (C1-2) 5 Normal Extension 5 Normal Rotation Left 5 Normal Rotation Right 5 Normal Lateral Flexion Left (C3) 5 Normal Lateral Flexion Right (C3) 5 Normal Shoulder Strength Shoulder Manual Muscle Testing Right Flexion 4+ Good+ Abduction (C5) 4 Good External Rotation 4+ Good+ Internal Rotation 4 Good Horizontal Abduction 4+ Good+ Horizontal Adduction 4+ Good+ Left Flexion 3+ Fair+ Abduction (C5) 3+ Fair+ External Rotation 4- Good- Internal Rotation 4- Good- Horizontal Abduction 4 Good Horizontal Adduction 4- Good- Comments pain with flex, abd, HADD Elbow/Forearm Strength Elbow and Forearm Manual Muscle Testing Right Flexion (C6) 4+ Good+ Extension (C7) 4+ Good+ Left Flexion (C6) 4+ Good+ Extension (C7) 4+ Good+ PT-OP-Q Treatments Start: 03/11/24 07:29 Freq: Status: Active Protocol: Document 03/31/24 08:11 NM (Rec: 03/31/24 08:57 NM [id number]) Therapeutic Exercises Supine Exercises flexion + ER Supine Exercise Name miniband Side bilateral Resistance level 1 Reps/Minutes X10 Comments cued for // arms Sidelying Exercises left shoulder AROM Sidelying Exercise Name 1. ER/IR, 2. flex, 3. HABD Side left Equipment Used towel roll ER/IR; PT facilitate scap control w/ flex/HABD Reps/Minutes 10 w/ 3 concentric, 1 hold, 3 eccentric Comments pain free ER/IR; cued w/i pain free range for flex/HABD Sitting Exercises pulleys Sitting Exercise Name 1. fwd flexion, 2. scaption Side left Resistance AAROM Equipment Used L assist Reps/Minutes 60 ea direction Standing Exercises serratus anterior Standing Exercise Name forearm wall slide w/ foam roller Side bilateral Equipment Used foam roller at wall Reps/Minutes 2x10 ea Comments cued protraction, //elbows scapular retractions Standing Exercise Name 1. rows (HEP review), 2. low rows Side bilateral Resistance level 3 band Reps/Minutes 2x15 Comments tactile cues for form, improved w/ reps Manual Therapy Treatment Consent Patient gave verbal consent for manual Yes treatment Soft Tissue Mobilization L shoulder Body Location rhomboid, rotator cuff, lat, pec, subscapularis, UT, LS Mobilization Type Rolling,Sustained Pressure Intensity/Depth Moderate Body Position Sidelying Comments increased stiffness UT, levator scap Joint Mobilizations L scapulothoracic Direction adduction, retraction Grade III Body Position Sidelying Reps/Duration 10 ea Comments slight scapular elevated position at start L GHJ Direction AP and Inf Grade III Body Position Hooklying Reps/Duration 4x30 Comments Improved post and inf glide, progressing up into abd from 45 deg with both mobilizations . Monitored for pain pre mobilization: 118 deg abd, 130 deg flex PT-OP-T Assessment and Plan Start: 03/11/24 07:29 Freq: Status: Active Protocol: Document 03/31/24 08:11 NM (Rec: 03/31/24 08:57 NM [id number]) Physical Therapy Assessment Goals Six Impairment strength flex/abd 3+/5 Short Term Goal (STG) Pt will improve L shoulder flexion and abduction strength to at least 4-/5 in order to demonstrate improved strength for reaching, lifting, ADLs STG Duration 8 weeks Prison Goal (LTG) Pt will improve L shoulder flexion and abduction strength to at least 4/5 in order to demonstrate improved strength for reaching, lifting, ADLs LTG Duration 12 weeks Five Impairment strength ER/IR 4-/5 Short Term Goal (STG) Pt will improve L shoulder ER and IR strength to at least 4/ 5 MMT in order to demonstrate improved stabilization during reaching and lifting STG Duration 6 weeks Prison Goal (LTG) Pt will improve L shoulder ER and IR strength to at least 4+ /5 MMT in order to demonstrate improved stabilization during reaching and lifting LTG Duration 12 weeks Four Impairment ROM IR apley Short Term Goal (STG) Pt will improve L shoulder IR apley scratch test to at least L1 in order to demonstrate improved ROM for dressing/ grooming STG Duration 8 weeks Director Of Dietary Goal (LTG) Pt will improve L shoulder IR apley scratch test to at least T10 in order to demonstrate improved ROM for dressing/ grooming LTG Duration 12 weeks Three Impairment ROM ER apley Short Term Goal (STG) Pt will improve L shoulder ER apley scratch test to at least C7 in order to demonstrate improved ROM for dressing/ grooming STG Duration 6 weeks Director Of Dietary Goal (LTG) Pt will improve L shoulder ER apley scratch test to at least T2 in order to demonstrate improved ROM for dressing/ grooming LTG Duration 12 weeks Two Impairment quickdash: 47.7% impairment Impairment LEFS 48/80 Short Term Goal (STG) Pt will decrease impairment score by 11% (1 MCID) in order to demonstrate improved symptom management and QOL STG Duration 6 weeks Prison Goal (LTG) Pt will decrease impairment score to <20% in order to demonstrate improved symptom management and QOL LTG Duration 12 weeks One Impairment ROM L flex and abd Impairment reports pain with sleeping, rolling over in bed Short Term Goal (STG) Pt will improve L shoulder flexion and abduction to at least 140 deg in order to demonstrate increased ROM for reaching STG Duration 8 weeks Director Of Dietary Goal (LTG) Pt will improve L shoulder flexion and abduction to at least 160 deg in order to demonstrate increased ROM for reaching LTG Duration 12 weeks Assessment Summary Assessment Despite increased pain levels at arrival, pt does not have any increase in L shoulder pain during sessions. ROM at end of session 140 deg forward flexion and 121 deg abduction for reaching and grooming; still pain with end range. Emphasis on rotator cuff strength and scapular control. Pt's L scapula moves into elevation more quickly than R side; however, improved with verbal and tactile cueing. Sidelying rotator cuff exercises pain free within decreased ROM. Pt challenged with scapular protraction and maintaining correct alignment during wall slides. Demonstrates improved response to L glenohumeral mobilizations. Pt would benefit from skilled PT for L shoulder mobility and strengthening to improve reaching and lifting during ADLs. Physical Therapy Plan Frequency and Duration Frequency of Treatment 2x/Week Duration of treatment (weeks) 12 Plan of Care Start Date 03/11/24 Plan of Care End Date 06/05/24 Therapeutic Interventions Therapeutic Interventions Gait Training,Home Exercise Program,Joint Mobilizations, Manual Therapy,Neuromuscular Re-education,Orthotic/ Prosthetic Management,Patient/ Caregiver Education,Self-Care/ Home Management,Sensory Integration,Soft Tissue Mobilization,Taping, Therapeutic Activities, Therapeutic Exercises Modalities Cold Pack/Ice Massage,Electric Stimulation,Hot Packs, Ultrasound Next Visit Focus/Plan Next Note Type Treatment Note Next Visit Plan Review s/l trio (add to HEP for pain free range), wall pec mobilization Cont w/ inf and post humeral glide w/ AAROM as needed; trial s/l for proprioception; wall slide for RC and w/ protraction, miniband w/ flex/ ER, Update/review HEP as needed joint mobilizations, soft tissue mobilization
--- NOTE | 2024-04-02 13:42 | PT.OTN ---
Current Diagnoses Pain in left shoulder (04/02/24) Stiffness of left shoulder, not elsewhere classified (04/02/24) Weakness (04/02/24) Physical Therapy Treatment Note PT-OP-A Visit Information Start: 03/11/24 07:29 Freq: Status: Active Protocol: Document 04/02/24 12:57 NM (Rec: 04/02/24 13:42 NM [id number]) Out-Patient Physical Therapy Visit Information Visit Information Visit Type Treatment Note Visit Note KX after 04/22 visit Visit Start Time 13:00 Visit Stop Time 13:40 Visit Number 6 Evaluation Information Evaluation Date 03/11/24 Precautions Precautions blood pressure and diabetes PT-OP-B Current Condition Start: 03/11/24 07:29 Freq: Status: Active Protocol: Document 03/11/24 08:18 NM (Rec: 03/11/24 09:01 NM [id number]) Current Condition History of Current Condition Onset Date November 2023 Current Complaints pain, mobility, strength History of Current Condition Pt presents with L shoulder pain, starting about 4 months ago since November. Pt had been moving boxes and woke up one morning with pain. She states that her pain has improved but still bothers her. She reports that she has pain with lifting (e.g. grocery bag), abduction, reaching overhead, waving, driving (tends to use L hand more, especially with cross body), holding steering wheel position, lifting or holding her cast iron hanson, and sleeping (better with body pillow) if lying on L side or if sleeping without hugging pillow. No hx of previous shoulder injuries, neck injuries. No numbness or tingling. States that long sitting activities make her L shoulder feel worse. Feels likes it catches when moving , does not dislocate or sublux Prior Treatments and Tests no previous imaging or treatment for L shoulder Treatment Goals Patient/Caregiver Goals make it stop hurting PT-OP-C Subjective Start: 03/11/24 07:29 Freq: Status: Active Protocol: Document 04/02/24 12:57 NM (Rec: 04/02/24 13:42 NM [id number]) OP-PT Subjective Patient Comments Patient Comments Pt reports back on right track. Still has L shoulder pain, but states feeling better than at start of last session. Pt reports still has a click and pinch feeling near 90 deg abd. Aislinn reports resting pain 3-4/10, exercise pain is 5/10 when at end range . PT-OP-E Functional Tests Start: 03/11/24 07:29 Freq: Status: Active Protocol: Document 03/11/24 08:18 NM (Rec: 03/11/24 09:01 NM [id number]) Functional Tests Apley's Scratch Test Action 1- Left distal clavicle, painful Action 1- Right posterior cuff Action 2- Left base of occiput, painful Action 2- Right T2 Action 3- Left L5, painful Action 3- Right T10 PT-OP-F Manual Assessment Start: 03/11/24 07:29 Freq: Status: Active Protocol: Document 03/11/24 08:18 NM (Rec: 03/11/24 09:01 NM [id number]) Manual Assessments Soft Tissue Assessment Soft Tissue Mobility Assessment Restrictions of cervical paraspinals, rhomboids, lat Joint Mobility Assessment Joint Mobility Assessment Decreased humeral gliding posteriorly and inferiorly during both AROM and PROM, early scapular mobility during arm elevation and return PT-OP-J Posture/Palpation/Skin Start: 03/11/24 07:29 Freq: Status: Active Protocol: Document 03/11/24 08:18 NM (Rec: 03/11/24 12:58 NM [id number]) Posture Evaluation Position Standing Head/C-Spine Posture Forward Head Shoulder Posture (L) Forward,(R) Forward,(L) Elevated Scapula Posture (L) Elevated,(L) Tipped Palpation Assessment Location L shoulder Palpation Details tightness of periscapulars especially rhomboids and cervical paraspinals on L side no tenderness of long head biceps tendon, rotator cuff, AC joint PT-OP-K Range of Motion Start: 03/11/24 07:29 Freq: Status: Active Protocol: Document 03/11/24 08:18 NM (Rec: 03/11/24 09:01 NM [id number]) Cervical Spine Range of Motion Cervical Spine Active Degrees Flexion 60 Extension 35 Rotation Left 75 Rotation Right 65 Lateral Flexion Left 35 Lateral Flexion Right 35 Comments L rotation pulling sensation Shoulder Goniometric Range of Motion Shoulder Right Flexion 160 Extension 60 Abduction 160 External Rotation at 90 degrees 80 Abduction External Rotation at 0 degrees Abduction 60 Internal Rotation 80 Left Flexion 130 Extension 50 Abduction 125 External Rotation at 90 degrees 65 Abduction External Rotation at 0 degrees Abduction 60 Internal Rotation 60 Comments pain with all, IR worse and abd PT-OP-L Special Tests Start: 03/11/24 07:29 Freq: Status: Active Protocol: Document 03/11/24 08:18 NM (Rec: 03/11/24 09:01 NM [id number]) Special Tests Cervical Spine Special Tests Spurling's Test Test Results - Shoulder Special Tests Lift-Off Rotator Cuff Test Results + Comments painful with lift off but no limitation in strength Empty Can Test Results + Comments IR more painful than ER, both weak Passive ER Rotator Cuff Test Results - Neer Impingement Test Results + Tirado Amish Impingement Test Results + Elevation Impingement Test Results + PT-OP-M Strength Start: 03/11/24 07:29 Freq: Status: Active Protocol: Document 03/11/24 08:18 NM (Rec: 03/11/24 09:01 NM [id number]) Cervical Spine Strength Cervical Spine Manual Muscle Testing Flexion (C1-2) 5 Normal Extension 5 Normal Rotation Left 5 Normal Rotation Right 5 Normal Lateral Flexion Left (C3) 5 Normal Lateral Flexion Right (C3) 5 Normal Shoulder Strength Shoulder Manual Muscle Testing Right Flexion 4+ Good+ Abduction (C5) 4 Good External Rotation 4+ Good+ Internal Rotation 4 Good Horizontal Abduction 4+ Good+ Horizontal Adduction 4+ Good+ Left Flexion 3+ Fair+ Abduction (C5) 3+ Fair+ External Rotation 4- Good- Internal Rotation 4- Good- Horizontal Abduction 4 Good Horizontal Adduction 4- Good- Comments pain with flex, abd, HADD Elbow/Forearm Strength Elbow and Forearm Manual Muscle Testing Right Flexion (C6) 4+ Good+ Extension (C7) 4+ Good+ Left Flexion (C6) 4+ Good+ Extension (C7) 4+ Good+ PT-OP-Q Treatments Start: 03/11/24 07:29 Freq: Status: Active Protocol: Document 04/02/24 12:57 NM (Rec: 04/02/24 13:42 NM [id number]) Therapeutic Exercises Sidelying Exercises left shoulder AROM Sidelying Exercise Name 1. ER/IR, 2. flex, 3. HABD Side left Resistance 1# for ER/IR, AROM for flex/ HABD Equipment Used towel roll ER/IR; PT facilitate scap control w/ flex/HABD Reps/Minutes 2x10 w/ 3 concentric, 1 hold , 3 eccentric Comments pain free; 120 deg flex limit, less pain with HABD but full 90 deg Standing Exercises rotator cuff Standing Exercise Name wall walks- lateral: 1. @ waist height, 2. @ shoulder height Side bilateral Resistance level 1 band Equipment Used wall Reps/Minutes 10 ft ea (down and back) Comments fatiguing but no increased pain; improved control of trail hand w/ reps Other Exercises self soft tissue mobilization Other Exercise Name pec mobilization w/ movement: 45-90 deg abd Side bilateral Equipment Used racquetball in pillowcase Reps/Minutes 60 Comments more ROM on R side Manual Therapy Treatment Consent Patient gave verbal consent for manual Yes treatment Soft Tissue Mobilization L shoulder Body Location rhomboid, rotator cuff, lat, pec, subscapularis, UT, LS Mobilization Type Rolling,Sustained Pressure, Trigger Point Release Intensity/Depth Moderate Body Position Sidelying Comments Trigger point @ levator scapula. Reduced with mobilization. No tenderness today at rotator cuff Joint Mobilizations L scapulothoracic Direction adduction, retraction Grade III Body Position Sidelying Reps/Duration 10 ea Comments Improved positioning before mobilization L GHJ Direction AP and Inf, lateral and post gapping Grade III Body Position Hooklying Reps/Duration 4x30 Comments Improved post and inf glide, progressing up into abd from to 90 deg with both mobilizations. Emphasis on cross body ADD and IR today to decrease impingement symptoms . Monitored for pain PT-OP-T Assessment and Plan Start: 03/11/24 07:29 Freq: Status: Active Protocol: Document 04/02/24 12:57 NM (Rec: 04/02/24 13:42 NM [id number]) Physical Therapy Assessment Goals Six Impairment strength flex/abd 3+/5 Short Term Goal (STG) Pt will improve L shoulder flexion and abduction strength to at least 4-/5 in order to demonstrate improved strength for reaching, lifting, ADLs STG Duration 8 weeks Care Home Goal (LTG) Pt will improve L shoulder flexion and abduction strength to at least 4/5 in order to demonstrate improved strength for reaching, lifting, ADLs LTG Duration 12 weeks Five Impairment strength ER/IR 4-/5 Short Term Goal (STG) Pt will improve L shoulder ER and IR strength to at least 4/ 5 MMT in order to demonstrate improved stabilization during reaching and lifting STG Duration 6 weeks Paper Cup Machine Tender Goal (LTG) Pt will improve L shoulder ER and IR strength to at least 4+ /5 MMT in order to demonstrate improved stabilization during reaching and lifting LTG Duration 12 weeks Four Impairment ROM IR apley Short Term Goal (STG) Pt will improve L shoulder IR apley scratch test to at least L1 in order to demonstrate improved ROM for dressing/ grooming STG Duration 8 weeks Care Home Goal (LTG) Pt will improve L shoulder IR apley scratch test to at least T10 in order to demonstrate improved ROM for dressing/ grooming LTG Duration 12 weeks Three Impairment ROM ER apley Short Term Goal (STG) Pt will improve L shoulder ER apley scratch test to at least C7 in order to demonstrate improved ROM for dressing/ grooming STG Duration 6 weeks Paper Cup Machine Tender Goal (LTG) Pt will improve L shoulder ER apley scratch test to at least T2 in order to demonstrate improved ROM for dressing/ grooming LTG Duration 12 weeks Two Impairment quickdash: 47.7% impairment Impairment LEFS 48/80 Short Term Goal (STG) Pt will decrease impairment score by 11% (1 MCID) in order to demonstrate improved symptom management and QOL STG Duration 6 weeks Paper Cup Machine Tender Goal (LTG) Pt will decrease impairment score to <20% in order to demonstrate improved symptom management and QOL LTG Duration 12 weeks One Impairment ROM L flex and abd Impairment reports pain with sleeping, rolling over in bed Short Term Goal (STG) Pt will improve L shoulder flexion and abduction to at least 140 deg in order to demonstrate increased ROM for reaching STG Duration 8 weeks Care Home Goal (LTG) Pt will improve L shoulder flexion and abduction to at least 160 deg in order to demonstrate increased ROM for reaching LTG Duration 12 weeks Assessment Summary Assessment Pt tolerated session well, reports less pain with exercises today. Progressed to low resistance dumbbell for sidelying ER. No resistance for sidelying flexion or horizontal abduction; still fatiguing but improved scapular control and increased ROM compared to last session. Increased tightness of L pec, reduced with mobilization with movement at wall. Trialed closed chain rotator cuff strengthening to improved shoulder stability and facilitate increased rotator cuff activation with lifting and reaching. Challenging and fatiguing for pt but no increased pain. Demos improved control with minor tactile cues. Pt would benefit from skilled PT to improve L shoulder mobility and strength to improve tolerance for lifting and reaching with ADLs . Physical Therapy Plan Frequency and Duration Frequency of Treatment 2x/Week Duration of treatment (weeks) 12 Plan of Care Start Date 03/11/24 Plan of Care End Date 06/05/24 Therapeutic Interventions Therapeutic Interventions Gait Training,Home Exercise Program,Joint Mobilizations, Manual Therapy,Neuromuscular Re-education,Orthotic/ Prosthetic Management,Patient/ Caregiver Education,Self-Care/ Home Management,Sensory Integration,Soft Tissue Mobilization,Taping, Therapeutic Activities, Therapeutic Exercises Modalities Cold Pack/Ice Massage,Electric Stimulation,Hot Packs, Ultrasound Next Visit Focus/Plan Next Note Type Treatment Note Next Visit Plan Review wall walk/clock, wall pec mobilization; trial snow janie or similar with band, thoracic extension and rotation Cont w/ inf and post humeral glide w/ AAROM as needed; trial s/l for proprioception; wall slide for RC and w/ protraction, miniband w/ flex/ ER, Update/review HEP as needed joint mobilizations, soft tissue mobilization
--- NOTE | 2024-04-06 08:57 | PT.OTN ---
Current Diagnoses Pain in left shoulder (04/06/24) Stiffness of left shoulder, not elsewhere classified (04/06/24) Weakness (04/06/24) Physical Therapy Treatment Note PT-OP-A Visit Information Start: 03/11/24 07:29 Freq: Status: Active Protocol: Document 04/06/24 08:15 NM (Rec: 04/06/24 08:57 NM [id number]) Out-Patient Physical Therapy Visit Information Visit Information Visit Type Treatment Note Visit Note KX after 04/22 visit Visit Start Time 08:16 Visit Stop Time 08:55 Visit Number 7 Evaluation Information Evaluation Date 03/11/24 Precautions Precautions blood pressure and diabetes PT-OP-B Current Condition Start: 03/11/24 07:29 Freq: Status: Active Protocol: Document 03/11/24 08:18 NM (Rec: 03/11/24 09:01 NM [id number]) Current Condition History of Current Condition Onset Date November 2023 Current Complaints pain, mobility, strength History of Current Condition Pt presents with L shoulder pain, starting about 4 months ago since November. Pt had been moving boxes and woke up one morning with pain. She states that her pain has improved but still bothers her. She reports that she has pain with lifting (e.g. grocery bag), abduction, reaching overhead, waving, driving (tends to use L hand more, especially with cross body), holding steering wheel position, lifting or holding her cast iron hanson, and sleeping (better with body pillow) if lying on L side or if sleeping without hugging pillow. No hx of previous shoulder injuries, neck injuries. No numbness or tingling. States that long sitting activities make her L shoulder feel worse. Feels likes it catches when moving , does not dislocate or sublux Prior Treatments and Tests no previous imaging or treatment for L shoulder Treatment Goals Patient/Caregiver Goals make it stop hurting PT-OP-C Subjective Start: 03/11/24 07:29 Freq: Status: Active Protocol: Document 04/06/24 08:15 NM (Rec: 04/06/24 08:57 NM [id number]) OP-PT Subjective Patient Comments Patient Comments Pt reports that she is doing better. Resting pain is 2-3/ 10. Has painful arc with abd, but states that goes away as raises arm higher; same ER. Still sleeps on L side most of the night PT-OP-E Functional Tests Start: 03/11/24 07:29 Freq: Status: Active Protocol: Document 03/11/24 08:18 NM (Rec: 03/11/24 09:01 NM [id number]) Functional Tests Apley's Scratch Test Action 1- Left distal clavicle, painful Action 1- Right posterior cuff Action 2- Left base of occiput, painful Action 2- Right T2 Action 3- Left L5, painful Action 3- Right T10 PT-OP-F Manual Assessment Start: 03/11/24 07:29 Freq: Status: Active Protocol: Document 03/11/24 08:18 NM (Rec: 03/11/24 09:01 NM [id number]) Manual Assessments Soft Tissue Assessment Soft Tissue Mobility Assessment Restrictions of cervical paraspinals, rhomboids, lat Joint Mobility Assessment Joint Mobility Assessment Decreased humeral gliding posteriorly and inferiorly during both AROM and PROM, early scapular mobility during arm elevation and return PT-OP-J Posture/Palpation/Skin Start: 03/11/24 07:29 Freq: Status: Active Protocol: Document 03/11/24 08:18 NM (Rec: 03/11/24 12:58 NM [id number]) Posture Evaluation Position Standing Head/C-Spine Posture Forward Head Shoulder Posture (L) Forward,(R) Forward,(L) Elevated Scapula Posture (L) Elevated,(L) Tipped Palpation Assessment Location L shoulder Palpation Details tightness of periscapulars especially rhomboids and cervical paraspinals on L side no tenderness of long head biceps tendon, rotator cuff, AC joint PT-OP-K Range of Motion Start: 03/11/24 07:29 Freq: Status: Active Protocol: Document 04/06/24 08:15 NM (Rec: 04/06/24 08:57 NM [id number]) Shoulder Goniometric Range of Motion Shoulder Left Flexion 130 Extension 50 Abduction 125 External Rotation at 90 degrees 65 Abduction External Rotation at 0 degrees Abduction 60 Internal Rotation 60 Comments pain with all, IR worse and abd 04/06/24: 135 deg flex, 130 deg abd PT-OP-L Special Tests Start: 03/11/24 07:29 Freq: Status: Active Protocol: Document 03/11/24 08:18 NM (Rec: 08/14/24 09:01 NM [id number]) Special Tests Cervical Spine Special Tests Spurling's Test Test Results - Shoulder Special Tests Lift-Off Rotator Cuff Test Results + Comments painful with lift off but no limitation in strength Empty Can Test Results + Comments IR more painful than ER, both weak Passive ER Rotator Cuff Test Results - Neer Impingement Test Results + Tirado Amish Impingement Test Results + Elevation Impingement Test Results + PT-OP-M Strength Start: 03/11/24 07:29 Freq: Status: Active Protocol: Document 04/06/24 08:15 NM (Rec: 04/06/24 08:57 NM [id number]) Shoulder Strength Shoulder Manual Muscle Testing Left Flexion 3+ Fair+ Abduction (C5) 3+ Fair+ External Rotation 4- Good- Internal Rotation 4- Good- Horizontal Abduction 4 Good Horizontal Adduction 4- Good- Comments pain with flex, abd, HADD PT-OP-Q Treatments Start: 03/11/24 07:29 Freq: Status: Active Protocol: Document 04/06/24 08:15 NM (Rec: 04/06/24 08:57 NM [id number]) Therapeutic Exercises Prone Exercises periscapular Prone Exercise Name I, T, W Side bilateral Equipment Used 65 cm portuguese ball, pillow under knees Reps/Minutes 2x10 ea Comments ROM modified for comfort; good scapular control Sidelying Exercises left shoulder AROM Sidelying Exercise Name 1. ER/IR, 2. flex, 3. HABD Side left Resistance 1# for ER/IR, AROM for flex/ HABD Equipment Used towel roll ER/IR; PT facilitate scap control w/ flex/HABD Reps/Minutes 2x10 w/ 3 concentric, 1 hold , 3 eccentric Comments improved ROM for all, still slight impinge symptoms w/ flex Standing Exercises thoracic mobility Standing Exercise Name 1. rotation, 2. extension Side bilateral Equipment Used wall Reps/Minutes 5 ea Comments cued for form; pain free serratus anterior Standing Exercise Name 1. forearm presses on foam roller, 2. forearm wall slide w/ foam roller Side bilateral Resistance level 1 band at forearms Equipment Used foam roller at wall Reps/Minutes 1. 10 ea, 2. 10 ea Comments cued protraction, //elbows rotator cuff Standing Exercise Name 1. lateral, 2. vertical Side bilateral Resistance level 1 band Equipment Used wall Reps/Minutes 1. 15 ft (down and back), 2. 5x 5 steps (ea hand) Comments cued form to limit sliding, fatiguing Manual Therapy Treatment Consent Patient gave verbal consent for manual Yes treatment Soft Tissue Mobilization L shoulder Body Location rhomboid, rotator cuff, lat, pec, subscapularis, UT, LS Mobilization Type Rolling,Sustained Pressure, Trigger Point Release Intensity/Depth Moderate Body Position Sidelying Comments Trigger point @ rhomboid, teres/lat. Reduced with mobilization. No tenderness today at rotator cuff. Tenderness at anterior shoulder over long head biceps tendon Joint Mobilizations 1st rib Joint L Direction caudal Grade II Body Position Hooklying Reps/Duration 2x15 Comments with breathing and then sidelying flexion MWM L scapulothoracic Direction adduction, retraction Grade III Body Position Sidelying Reps/Duration 10 ea Comments Improved positioning before mobilization L GHJ Direction AP and Inf, lateral and post gapping Grade III Body Position Hooklying Reps/Duration 4x30 Comments Improved post and inf glide, progressing up into abd from to 90 deg with both mobilizations. Emphasis on cross body ADD and IR today to decrease impingement symptoms . Monitored for pain PT-OP-T Assessment and Plan Start: 03/11/24 07:29 Freq: Status: Active Protocol: Document 04/06/24 08:15 NM (Rec: 04/06/24 08:57 NM [id number]) Physical Therapy Assessment Goals Six Impairment strength flex/abd 3+/5 Short Term Goal (STG) Pt will improve L shoulder flexion and abduction strength to at least 4-/5 in order to demonstrate improved strength for reaching, lifting, ADLs STG Duration 8 weeks Senior Care Goal (LTG) Pt will improve L shoulder flexion and abduction strength to at least 4/5 in order to demonstrate improved strength for reaching, lifting, ADLs LTG Duration 12 weeks Five Impairment strength ER/IR 4-/5 Short Term Goal (STG) Pt will improve L shoulder ER and IR strength to at least 4/ 5 MMT in order to demonstrate improved stabilization during reaching and lifting STG Duration 6 weeks Senior Care Goal (LTG) Pt will improve L shoulder ER and IR strength to at least 4+ /5 MMT in order to demonstrate improved stabilization during reaching and lifting LTG Duration 12 weeks Four Impairment ROM IR apley Short Term Goal (STG) Pt will improve L shoulder IR apley scratch test to at least L1 in order to demonstrate improved ROM for dressing/ grooming STG Duration 8 weeks French Translator Goal (LTG) Pt will improve L shoulder IR apley scratch test to at least T10 in order to demonstrate improved ROM for dressing/ grooming LTG Duration 12 weeks Three Impairment ROM ER apley Short Term Goal (STG) Pt will improve L shoulder ER apley scratch test to at least C7 in order to demonstrate improved ROM for dressing/ grooming STG Duration 6 weeks French Translator Goal (LTG) Pt will improve L shoulder ER apley scratch test to at least T2 in order to demonstrate improved ROM for dressing/ grooming LTG Duration 12 weeks Two Impairment quickdash: 47.7% impairment Impairment LEFS 48/80 Short Term Goal (STG) Pt will decrease impairment score by 11% (1 MCID) in order to demonstrate improved symptom management and QOL STG Duration 6 weeks Senior Care Goal (LTG) Pt will decrease impairment score to <20% in order to demonstrate improved symptom management and QOL LTG Duration 12 weeks One Impairment ROM L flex and abd Impairment reports pain with sleeping, rolling over in bed Short Term Goal (STG) Pt will improve L shoulder flexion and abduction to at least 140 deg in order to demonstrate increased ROM for reaching STG Duration 8 weeks Senior Care Goal (LTG) Pt will improve L shoulder flexion and abduction to at least 160 deg in order to demonstrate increased ROM for reaching LTG Duration 12 weeks Assessment Summary Assessment Pt tolerated session well. At end of session, pt has 140 deg flex and abduction ROM ( started at 135 deg flex, 130 deg abd). Presents with L 1st rib elevation, mild reduction with manual treatment. Tenderness over anterior shoulder near long head biceps tendon. Trialed prone periscapular muscle activation on ball. Pt continues to have slight impingement symptoms with HABD and flexion in midrange; reduced compared to previous session. Better serratus activation today with wall slides, still requires cues for form. Progressed to vertical wall walks as well to target rotator cuff with closed chain stabilization. Pt fatigues quickly with all exercises but demonstrates good effort. Thoracic mobility limited bilaterally, especially on L side. Pt would benefit from skilled PT for L shoulder mobility and strengthening to improve symptom management during reaching and lifting ADLs. Physical Therapy Plan Frequency and Duration Frequency of Treatment 2x/Week Duration of treatment (weeks) 12 Plan of Care Start Date 03/11/24 Plan of Care End Date 06/05/24 Therapeutic Interventions Therapeutic Interventions Gait Training,Home Exercise Program,Joint Mobilizations, Manual Therapy,Neuromuscular Re-education,Orthotic/ Prosthetic Management,Patient/ Caregiver Education,Self-Care/ Home Management,Sensory Integration,Soft Tissue Mobilization,Taping, Therapeutic Activities, Therapeutic Exercises Modalities Cold Pack/Ice Massage,Electric Stimulation,Hot Packs, Ultrasound Next Visit Focus/Plan Next Note Type Progress Note Next Visit Plan Review wall walk/clock, wall pec mobilization; prone periscapular on ball, trial snow janie or similar with band, thoracic extension and rotation Cont w/ inf and post humeral glide w/ AAROM as needed; trial s/l for proprioception; wall slide for RC and w/ protraction, miniband w/ flex/ ER, Update/review HEP as needed joint mobilizations, soft tissue mobilization
--- NOTE | 2024-04-15 12:51 | PT.OTN ---
Current Diagnoses Pain in left shoulder (04/15/24) Stiffness of left shoulder, not elsewhere classified (04/15/24) Weakness (04/15/24) Physical Therapy Treatment Note PT-OP-A Visit Information Start: 03/11/24 07:29 Freq: Status: Active Protocol: Document 04/15/24 07:42 NM (Rec: 04/15/24 07:47 NM [id number]) Out-Patient Physical Therapy Visit Information Visit Information Visit Type Progress Note Visit Note KX after 04/22 visit Visit Start Time 08:16 Visit Stop Time 08:56 Visit Number 8 Evaluation Information Evaluation Date 03/11/24 Precautions Precautions blood pressure and diabetes PT-OP-B Current Condition Start: 03/11/24 07:29 Freq: Status: Active Protocol: Document 03/11/24 08:18 NM (Rec: 03/11/24 09:01 NM [id number]) Current Condition History of Current Condition Onset Date November 2023 Current Complaints pain, mobility, strength History of Current Condition Pt presents with L shoulder pain, starting about 4 months ago since November. Pt had been moving boxes and woke up one morning with pain. She states that her pain has improved but still bothers her. She reports that she has pain with lifting (e.g. grocery bag), abduction, reaching overhead, waving, driving (tends to use L hand more, especially with cross body), holding steering wheel position, lifting or holding her cast iron hanson, and sleeping (better with body pillow) if lying on L side or if sleeping without hugging pillow. No hx of previous shoulder injuries, neck injuries. No numbness or tingling. States that long sitting activities make her L shoulder feel worse. Feels likes it catches when moving , does not dislocate or sublux Prior Treatments and Tests no previous imaging or treatment for L shoulder Treatment Goals Patient/Caregiver Goals make it stop hurting PT-OP-C Subjective Start: 03/11/24 07:29 Freq: Status: Active Protocol: Document 04/15/24 07:42 NM (Rec: 04/15/24 07:47 NM [id number]) OP-PT Subjective Patient Comments Patient Comments Pt reports that her shoulder is doing better. States that resting pain is 2-3/10 but not consistently. She reports pain with shoulder extension, abduction; Still painful range with abduction. Of her HEP, the sidelying trio with ER is most painful. Pt did not have to lift her luggage. She reports that pain is still with driving, states better but still pain present. PT-OP-E Functional Tests Start: 03/11/24 07:29 Freq: Status: Active Protocol: Document 03/11/24 08:18 NM (Rec: 03/11/24 09:01 NM [id number]) Functional Tests Apley's Scratch Test Action 1- Left distal clavicle, painful Action 1- Right posterior cuff Action 2- Left base of occiput, painful Action 2- Right T2 Action 3- Left L5, painful Action 3- Right T10 PT-OP-F Manual Assessment Start: 03/11/24 07:29 Freq: Status: Active Protocol: Document 03/11/24 08:18 NM (Rec: 03/11/24 09:01 NM [id number]) Manual Assessments Soft Tissue Assessment Soft Tissue Mobility Assessment Restrictions of cervical paraspinals, rhomboids, lat Joint Mobility Assessment Joint Mobility Assessment Decreased humeral gliding posteriorly and inferiorly during both AROM and PROM, early scapular mobility during arm elevation and return PT-OP-J Posture/Palpation/Skin Start: 03/11/24 07:29 Freq: Status: Active Protocol: Document 03/11/24 08:18 NM (Rec: 03/11/24 12:58 NM [id number]) Posture Evaluation Position Standing Head/C-Spine Posture Forward Head Shoulder Posture (L) Forward,(R) Forward,(L) Elevated Scapula Posture (L) Elevated,(L) Tipped Palpation Assessment Location L shoulder Palpation Details tightness of periscapulars especially rhomboids and cervical paraspinals on L side no tenderness of long head biceps tendon, rotator cuff, AC joint PT-OP-K Range of Motion Start: 03/11/24 07:29 Freq: Status: Active Protocol: Document 04/15/24 07:42 NM (Rec: 04/15/24 07:47 NM [id number]) Shoulder Goniometric Range of Motion Shoulder Left Flexion 130 Extension 50 Abduction 125 External Rotation at 90 degrees 65 Abduction External Rotation at 0 degrees Abduction 60 Internal Rotation 60 Comments pain with all, IR worse and abd 04/06/24: 135 deg flex, 130 deg abd 04/15/24: PT-OP-L Special Tests Start: 03/11/24 07:29 Freq: Status: Active Protocol: Document 03/11/24 08:18 NM (Rec: 03/11/24 09:01 NM [id number]) Special Tests Cervical Spine Special Tests Spurling's Test Test Results - Shoulder Special Tests Lift-Off Rotator Cuff Test Results + Comments painful with lift off but no limitation in strength Empty Can Test Results + Comments IR more painful than ER, both weak Passive ER Rotator Cuff Test Results - Neer Impingement Test Results + Tirado Amish Impingement Test Results + Elevation Impingement Test Results + PT-OP-M Strength Start: 03/11/24 07:29 Freq: Status: Active Protocol: Document 04/15/24 07:42 NM (Rec: 04/15/24 07:47 NM [id number]) Shoulder Strength Shoulder Manual Muscle Testing Left Flexion 3+ Fair+ Abduction (C5) 3+ Fair+ External Rotation 4- Good- Internal Rotation 4- Good- Horizontal Abduction 4 Good Horizontal Adduction 4- Good- Comments pain with flex, abd, HADD 04/15/24: 4-/5 for all flex/abd , 4/5 ER/IR; mild pain w/ IR, flex, abd PT-OP-Q Treatments Start: 03/11/24 07:29 Freq: Status: Active Protocol: Document 04/15/24 07:42 NM (Rec: 04/15/24 07:47 NM [id number]) Therapeutic Exercises Standing Exercises belly presses Standing Exercise Name shoulder IR Side left Reps/Minutes 15x2 Comments cued elbow // or ant to abdomen rhythmic stabilization Standing Exercise Name rotator cuff w/ band: 0 deg abd Side left Equipment Used yellow therabar Reps/Minutes 2x30 Comments challenging on L; cued for form flex + ER Standing Exercise Name edu to progress to standing for HEP Side bilateral Resistance level 1 band Reps/Minutes 10 Comments challenging IR towel stretch Standing Exercise Name mobilization: 1. ER, 2. IR, 3. Ext + ADD + IR Side bilateral Equipment Used L assist R Reps/Minutes 10x5 hold ea Comments mild ant pain with IR; cueing to remain w/i pain free ROM w/ gentle stretch serratus anterior Standing Exercise Name 1. roll up w/ ball, 2. press w / rotation into ER/IR 90/90 Side left Equipment Used staggered stance Reps/Minutes 1. 15, 2. 15 Comments cued pain free range Manual Therapy Treatment Consent Patient gave verbal consent for manual Yes treatment Soft Tissue Mobilization L shoulder Body Location rhomboid, rotator cuff, lat, pec, subscapularis, UT, LS Mobilization Type Rolling,Sustained Pressure, Trigger Point Release Intensity/Depth Moderate Body Position Sidelying Comments No trigger points. Tenderness along pec/LH biceps and posterior cuff. Monitored for pain Joint Mobilizations L scapulothoracic Direction adduction, retraction Grade III Body Position Sidelying Reps/Duration 10 ea Comments continues to demonstrate improved mobility with PT cueing for positioning L GHJ Direction AP and Inf, lateral and post gapping Grade III Body Position Hooklying Reps/Duration 3x30 Comments Improved post and inf glide, progressing up into abd from to 90 deg with both mobilizations. Emphasis on cross body ADD and IR today to decrease impingement symptoms . Monitored for pain PT-OP-T Assessment and Plan Start: 03/11/24 07:29 Freq: Status: Active Protocol: Document 04/15/24 07:42 NM (Rec: 04/15/24 07:47 NM [id number]) Physical Therapy Assessment Goals Six Impairment strength flex/abd 3+/5 Short Term Goal (STG) Pt will improve L shoulder flexion and abduction strength to at least 4-/5 in order to demonstrate improved strength for reaching, lifting, ADLs 04/15/24: 4-/5 with ant shoulder pain STG Duration 8 weeks PROGRESSING Alf Goal (LTG) Pt will improve L shoulder flexion and abduction strength to at least 4/5 in order to demonstrate improved strength for reaching, lifting, ADLs LTG Duration 12 weeks Five Impairment strength ER/IR 4-/5 Short Term Goal (STG) Pt will improve L shoulder ER and IR strength to at least 4/ 5 MMT in order to demonstrate improved stabilization during reaching and lifting 04/15/24: 4/5 with ant shoulder pain STG Duration 6 weeks MET Decaler Goal (LTG) Pt will improve L shoulder ER and IR strength to at least 4+ /5 MMT in order to demonstrate improved stabilization during reaching and lifting LTG Duration 12 weeks Four Impairment ROM IR apley Short Term Goal (STG) Pt will improve L shoulder IR apley scratch test to at least L1 in order to demonstrate improved ROM for dressing/ grooming 04/15/24: T10 with pain STG Duration 8 weeks MET Decaler Goal (LTG) Pt will improve L shoulder IR apley scratch test to at least T10 in order to demonstrate improved ROM for dressing/ grooming 04/15/24: T10 with pain LTG Duration 12 weeks PROGRESSING Three Impairment ROM ER apley Short Term Goal (STG) Pt will improve L shoulder ER apley scratch test to at least C7 in order to demonstrate improved ROM for dressing/ grooming 04/15/24: to C7 (painful) STG Duration 6 weeks Alf Goal (LTG) Pt will improve L shoulder ER apley scratch test to at least T2 in order to demonstrate improved ROM for dressing/ grooming LTG Duration 12 weeks Two Impairment quickdash: 47.7% impairment Impairment . Short Term Goal (STG) Pt will decrease impairment score by 11% (1 MCID) in order to demonstrate improved symptom management and QOL 04/15/24: 555 impairment but pt did not fill out quickdash correctly STG Duration 6 weeks Alf Goal (LTG) Pt will decrease impairment score to <20% in order to demonstrate improved symptom management and QOL LTG Duration 12 weeks One Impairment ROM L flex and abd Impairment . Short Term Goal (STG) Pt will improve L shoulder flexion and abduction to at least 140 deg in order to demonstrate increased ROM for reaching 04/15/24: 144 deg flexion ( painful end range), 150 deg abduction (pain end range) STG Duration 8 weeks PROGRESSING Decaler Goal (LTG) Pt will improve L shoulder flexion and abduction to at least 160 deg in order to demonstrate increased ROM for reaching LTG Duration 12 weeks Progress Towards Goals Progress Towards Goals Progressing Toward Goals Assessment Summary Assessment Pt tolerated session well, no increased pain at end of session. She does have mild anterior shoulder pain with IR behind the back and ER at end range. Pt requires moderate cues for all serratus anterior exercises; better tolerance for positioning in scapular plane. Pt challenged with maintaining form with belly presses and rhythmic stabilization. Demonstrates overall improvement of L shoulder AROM globally, still painful at end ranges. Pt would benefit from skilled PT for L shoulder mobility and strengthening in order to improve symptom management and activity tolerance for reaching and lifting ADLs. Physical Therapy Plan Frequency and Duration Frequency of Treatment 2x/Week Duration of treatment (weeks) 12 Plan of Care Start Date 03/11/24 Plan of Care End Date 06/05/24 Therapeutic Interventions Therapeutic Interventions Gait Training,Home Exercise Program,Joint Mobilizations, Manual Therapy,Neuromuscular Re-education,Orthotic/ Prosthetic Management,Patient/ Caregiver Education,Self-Care/ Home Management,Sensory Integration,Soft Tissue Mobilization,Taping, Therapeutic Activities, Therapeutic Exercises Modalities Cold Pack/Ice Massage,Electric Stimulation,Hot Packs, Ultrasound Next Visit Focus/Plan Next Note Type Treatment Note Next Visit Plan Condense HEP if needed. Review serratus and rhythmic stab. Progress ER and IR to 45 deg abd as tolerate. trial snow janie or HABD/PNF with band on foam roller, thoracic extension and rotation Cont w/ inf and post humeral glide w/ AAROM as needed joint mobilizations, soft tissue mobilization
--- NOTE | 2024-04-22 09:10 | PT.OTN ---
Current Diagnoses Pain in left shoulder (04/22/24) Stiffness of left shoulder, not elsewhere classified (04/22/24) Weakness (04/22/24) Physical Therapy Treatment Note PT-OP-A Visit Information Start: 03/11/24 07:29 Freq: Status: Active Protocol: Document 04/22/24 08:05 AB (Rec: 04/22/24 09:09 AB [id number]) Out-Patient Physical Therapy Visit Information Visit Information Visit Type Treatment Note Visit Note KX after 04/22 visit Access Code [email or web address] Visit Start Time 08:17 Visit Stop Time 09:01 Visit Number 9 Number of SAFETY ADMINISTRATOR Visits 1 Evaluation Information Evaluation Date 03/11/24 Precautions Precautions blood pressure and diabetes PT-OP-B Current Condition Start: 03/11/24 07:29 Freq: Status: Active Protocol: Document 03/11/24 08:18 NM (Rec: 03/11/24 09:01 NM [id number]) Current Condition History of Current Condition Onset Date November 2023 Current Complaints pain, mobility, strength History of Current Condition Pt presents with L shoulder pain, starting about 4 months ago since November. Pt had been moving boxes and woke up one morning with pain. She states that her pain has improved but still bothers her. She reports that she has pain with lifting (e.g. grocery bag), abduction, reaching overhead, waving, driving (tends to use L hand more, especially with cross body), holding steering wheel position, lifting or holding her cast iron hanson, and sleeping (better with body pillow) if lying on L side or if sleeping without hugging pillow. No hx of previous shoulder injuries, neck injuries. No numbness or tingling. States that long sitting activities make her L shoulder feel worse. Feels likes it catches when moving , does not dislocate or sublux Prior Treatments and Tests no previous imaging or treatment for L shoulder Treatment Goals Patient/Caregiver Goals make it stop hurting PT-OP-C Subjective Start: 03/11/24 07:29 Freq: Status: Active Protocol: Document 04/22/24 08:05 AB (Rec: 04/22/24 09:09 AB [id number]) OP-PT Subjective Patient Comments Patient Comments Patient rates left shoulder pain 1/10 start of session. Patient reports sleeping continues to be a problem. AROM left shoulder flexion 136 deg start of session. PT-OP-E Functional Tests Start: 03/11/24 07:29 Freq: Status: Active Protocol: Document 03/11/24 08:18 NM (Rec: 03/11/24 09:01 NM [id number]) Functional Tests Apley's Scratch Test Action 1- Left distal clavicle, painful Action 1- Right posterior cuff Action 2- Left base of occiput, painful Action 2- Right T2 Action 3- Left L5, painful Action 3- Right T10 PT-OP-F Manual Assessment Start: 03/11/24 07:29 Freq: Status: Active Protocol: Document 03/11/24 08:18 NM (Rec: 03/11/24 09:01 NM [id number]) Manual Assessments Soft Tissue Assessment Soft Tissue Mobility Assessment Restrictions of cervical paraspinals, rhomboids, lat Joint Mobility Assessment Joint Mobility Assessment Decreased humeral gliding posteriorly and inferiorly during both AROM and PROM, early scapular mobility during arm elevation and return PT-OP-J Posture/Palpation/Skin Start: 03/11/24 07:29 Freq: Status: Active Protocol: Document 03/11/24 08:18 NM (Rec: 03/11/24 12:58 NM [id number]) Posture Evaluation Position Standing Head/C-Spine Posture Forward Head Shoulder Posture (L) Forward,(R) Forward,(L) Elevated Scapula Posture (L) Elevated,(L) Tipped Palpation Assessment Location L shoulder Palpation Details tightness of periscapulars especially rhomboids and cervical paraspinals on L side no tenderness of long head biceps tendon, rotator cuff, AC joint PT-OP-K Range of Motion Start: 03/11/24 07:29 Freq: Status: Active Protocol: Document 04/15/24 07:42 NM (Rec: 04/15/24 07:47 NM [id number]) Shoulder Goniometric Range of Motion Shoulder Left Flexion 130 Extension 50 Abduction 125 External Rotation at 90 degrees 65 Abduction External Rotation at 0 degrees Abduction 60 Internal Rotation 60 Comments pain with all, IR worse and abd 04/06/24: 135 deg flex, 130 deg abd 04/15/24: PT-OP-L Special Tests Start: 03/11/24 07:29 Freq: Status: Active Protocol: Document 03/11/24 08:18 NM (Rec: 03/11/24 09:01 NM [id number]) Special Tests Cervical Spine Special Tests Spurling's Test Test Results - Shoulder Special Tests Lift-Off Rotator Cuff Test Results + Comments painful with lift off but no limitation in strength Empty Can Test Results + Comments IR more painful than ER, both weak Passive ER Rotator Cuff Test Results - Neer Impingement Test Results + Tirado Amish Impingement Test Results + Elevation Impingement Test Results + PT-OP-M Strength Start: 03/11/24 07:29 Freq: Status: Active Protocol: Document 04/15/24 07:42 NM (Rec: 04/15/24 07:47 NM [id number]) Shoulder Strength Shoulder Manual Muscle Testing Left Flexion 3+ Fair+ Abduction (C5) 3+ Fair+ External Rotation 4- Good- Internal Rotation 4- Good- Horizontal Abduction 4 Good Horizontal Adduction 4- Good- Comments pain with flex, abd, HADD 04/15/24: 4-/5 for all flex/abd , 4/5 ER/IR; mild pain w/ IR, flex, abd PT-OP-Q Treatments Start: 03/11/24 07:29 Freq: Status: Active Protocol: Document 04/22/24 08:05 AB (Rec: 04/22/24 09:09 AB [id number]) Therapeutic Exercises Supine Exercises shoulder IR Supine Exercise Name AROM, focus on avoiding ant translation of humerus HEP Side left Reps/Minutes X10 Comments verbal, tactile cues pt ed use of selft tactile cues Sidelying Exercises left shoulder AROM Sidelying Exercise Name 1. ER 2. abduction Side left Reps/Minutes 1.ER X 15 AROM X 10 with 1 lb, 2. Comments Verbal cues open book Side bilateral Reps/Minutes 10 Comments slight twinge Standing Exercises push up plus Standing Exercise Name HEP Side bilateral Reps/Minutes X10 Comments verbal and visual cue flex + ER Standing Exercise Name HEP Wall slide with step to wall, slide, lift UE's off wall& lower w/o wal Side bilateral Resistance level 1 band Reps/Minutes 8 Comments continues to be challenging Manual Therapy Treatment Soft Tissue Mobilization L shoulder Body Location rhomboid, rotator cuff, lat, pec, subscapularis, UT, LS Mobilization Type Cross-Friction,Rolling, Sustained Pressure Intensity/Depth Moderate Body Position Sidelying Comments and hooklying also biceps today Joint Mobilizations 1st rib Joint L Direction caudal Grade II Body Position seated Reps/Duration 2x15 L scapulothoracic Direction adduction, retraction Grade III Body Position Sidelying Reps/Duration 10 ea L GHJ Direction AP and Inf, Grade III Body Position Hooklying Reps/Duration 3x30 PT-OP-T Assessment and Plan Start: 03/11/24 07:29 Freq: Status: Active Protocol: Document 04/22/24 08:05 AB (Rec: 04/22/24 09:09 AB [id number]) Physical Therapy Assessment Goals Six Impairment strength flex/abd 3+/5 Short Term Goal (STG) Pt will improve L shoulder flexion and abduction strength to at least 4-/5 in order to demonstrate improved strength for reaching, lifting, ADLs 04/15/24: 4-/5 with ant shoulder pain STG Duration 8 weeks PROGRESSING Alf Goal (LTG) Pt will improve L shoulder flexion and abduction strength to at least 4/5 in order to demonstrate improved strength for reaching, lifting, ADLs LTG Duration 12 weeks Five Impairment strength ER/IR 4-/5 Short Term Goal (STG) Pt will improve L shoulder ER and IR strength to at least 4/ 5 MMT in order to demonstrate improved stabilization during reaching and lifting 04/15/24: 4/5 with ant shoulder pain STG Duration 6 weeks MET Alf Goal (LTG) Pt will improve L shoulder ER and IR strength to at least 4+ /5 MMT in order to demonstrate improved stabilization during reaching and lifting LTG Duration 12 weeks Four Impairment ROM IR apley Short Term Goal (STG) Pt will improve L shoulder IR apley scratch test to at least L1 in order to demonstrate improved ROM for dressing/ grooming 04/15/24: T10 with pain STG Duration 8 weeks MET Surgical Processor Goal (LTG) Pt will improve L shoulder IR apley scratch test to at least T10 in order to demonstrate improved ROM for dressing/ grooming 04/15/24: T10 with pain LTG Duration 12 weeks PROGRESSING Three Impairment ROM ER apley Short Term Goal (STG) Pt will improve L shoulder ER apley scratch test to at least C7 in order to demonstrate improved ROM for dressing/ grooming 04/15/24: to C7 (painful) STG Duration 6 weeks Alf Goal (LTG) Pt will improve L shoulder ER apley scratch test to at least T2 in order to demonstrate improved ROM for dressing/ grooming LTG Duration 12 weeks Two Impairment quickdash: 47.7% impairment Impairment . Short Term Goal (STG) Pt will decrease impairment score by 11% (1 MCID) in order to demonstrate improved symptom management and QOL 04/15/24: 555 impairment but pt did not fill out quickdash correctly STG Duration 6 weeks Alf Goal (LTG) Pt will decrease impairment score to <20% in order to demonstrate improved symptom management and QOL LTG Duration 12 weeks One Impairment ROM L flex and abd Impairment . Short Term Goal (STG) Pt will improve L shoulder flexion and abduction to at least 140 deg in order to demonstrate increased ROM for reaching 04/15/24: 144 deg flexion ( painful end range), 150 deg abduction (pain end range) STG Duration 8 weeks PROGRESSING Alf Goal (LTG) Pt will improve L shoulder flexion and abduction to at least 160 deg in order to demonstrate increased ROM for reaching LTG Duration 12 weeks Assessment Summary Assessment AROM left shoulder flexion 145 deg rating pain 2 maybe 3/ 10 end of session. Increased AROM left shoulder should allow Aislinn to reach items placed at higher levels in the home. Physical Therapy Plan Frequency and Duration Frequency of Treatment 2x/Week Duration of treatment (weeks) 12 Plan of Care Start Date 03/11/24 Plan of Care End Date 06/05/24 Next Visit Focus/Plan Next Note Type Treatment Note Next Visit Plan Condense HEP if needed. Review serratus and rhythmic stab. Progress ER and IR to 45 deg abd as tolerate. Add open book and sidelying shoulder abduction AROM to HEP possibly every other day. trial snow janie or HABD/PNF with band on foam roller, thoracic extension and rotation Cont w/ inf and post humeral glide w/ AAROM as needed joint mobilizations, soft tissue mobilization
--- NOTE | 2024-04-27 12:47 | PT.OTN ---
Current Diagnoses Pain in left shoulder (04/27/24) Stiffness of left shoulder, not elsewhere classified (04/27/24) Weakness (04/27/24) Physical Therapy Treatment Note PT-OP-A Visit Information Start: 03/11/24 07:29 Freq: Status: Active Protocol: Document 04/27/24 08:16 NM (Rec: 04/27/24 09:00 NM [id number]) Out-Patient Physical Therapy Visit Information Visit Information Visit Type Treatment Note Visit Note KX required for all visits 2/10 post PN Visit Start Time 08:18 Visit Stop Time 08:58 Visit Number 10 Evaluation Information Evaluation Date 03/11/24 Precautions Precautions blood pressure and diabetes PT-OP-B Current Condition Start: 03/11/24 07:29 Freq: Status: Active Protocol: Document 03/11/24 08:18 NM (Rec: 03/11/24 09:01 NM [id number]) Current Condition History of Current Condition Onset Date November 2023 Current Complaints pain, mobility, strength History of Current Condition Pt presents with L shoulder pain, starting about 4 months ago since November. Pt had been moving boxes and woke up one morning with pain. She states that her pain has improved but still bothers her. She reports that she has pain with lifting (e.g. grocery bag), abduction, reaching overhead, waving, driving (tends to use L hand more, especially with cross body), holding steering wheel position, lifting or holding her cast iron hanson, and sleeping (better with body pillow) if lying on L side or if sleeping without hugging pillow. No hx of previous shoulder injuries, neck injuries. No numbness or tingling. States that long sitting activities make her L shoulder feel worse. Feels likes it catches when moving , does not dislocate or sublux Prior Treatments and Tests no previous imaging or treatment for L shoulder Treatment Goals Patient/Caregiver Goals make it stop hurting PT-OP-C Subjective Start: 03/11/24 07:29 Freq: Status: Active Protocol: Document 04/27/24 08:16 NM (Rec: 04/27/24 09:00 NM [id number]) OP-PT Subjective Patient Comments Patient Comments Pt reports that she is doing well, reports L shoulder resting pain 1/10, active pain 4/10 with 90/90 IR and cross body adduction. Still reports a pop that is not reproducible . Still reports lifting difficulty. States better than when PT started. PT-OP-E Functional Tests Start: 03/11/24 07:29 Freq: Status: Active Protocol: Document 03/11/24 08:18 NM (Rec: 03/11/24 09:01 NM [id number]) Functional Tests Apley's Scratch Test Action 1- Left distal clavicle, painful Action 1- Right posterior cuff Action 2- Left base of occiput, painful Action 2- Right T2 Action 3- Left L5, painful Action 3- Right T10 PT-OP-F Manual Assessment Start: 03/11/24 07:29 Freq: Status: Active Protocol: Document 03/11/24 08:18 NM (Rec: 03/11/24 09:01 NM [id number]) Manual Assessments Soft Tissue Assessment Soft Tissue Mobility Assessment Restrictions of cervical paraspinals, rhomboids, lat Joint Mobility Assessment Joint Mobility Assessment Decreased humeral gliding posteriorly and inferiorly during both AROM and PROM, early scapular mobility during arm elevation and return PT-OP-J Posture/Palpation/Skin Start: 03/11/24 07:29 Freq: Status: Active Protocol: Document 03/11/24 08:18 NM (Rec: 03/11/24 12:58 NM [id number]) Posture Evaluation Position Standing Head/C-Spine Posture Forward Head Shoulder Posture (L) Forward,(R) Forward,(L) Elevated Scapula Posture (L) Elevated,(L) Tipped Palpation Assessment Location L shoulder Palpation Details tightness of periscapulars especially rhomboids and cervical paraspinals on L side no tenderness of long head biceps tendon, rotator cuff, AC joint PT-OP-K Range of Motion Start: 03/11/24 07:29 Freq: Status: Active Protocol: Document 04/15/24 07:42 NM (Rec: 04/15/24 07:47 NM [id number]) Shoulder Goniometric Range of Motion Shoulder Left Flexion 130 Extension 50 Abduction 125 External Rotation at 90 degrees 65 Abduction External Rotation at 0 degrees Abduction 60 Internal Rotation 60 Comments pain with all, IR worse and abd 04/06/24: 135 deg flex, 130 deg abd 24: PT-OP-L Special Tests Start: 03/11/24 07:29 Freq: Status: Active Protocol: Document 03/11/24 08:18 NM (Rec: 03/11/24 09:01 NM [id number]) Special Tests Cervical Spine Special Tests Spurling's Test Test Results - Shoulder Special Tests Lift-Off Rotator Cuff Test Results + Comments painful with lift off but no limitation in strength Empty Can Test Results + Comments IR more painful than ER, both weak Passive ER Rotator Cuff Test Results - Neer Impingement Test Results + Tirado Amish Impingement Test Results + Elevation Impingement Test Results + PT-OP-M Strength Start: 03/11/24 07:29 Freq: Status: Active Protocol: Document 04/15/24 07:42 NM (Rec: 04/15/24 07:47 NM [id number]) Shoulder Strength Shoulder Manual Muscle Testing Left Flexion 3+ Fair+ Abduction (C5) 3+ Fair+ External Rotation 4- Good- Internal Rotation 4- Good- Horizontal Abduction 4 Good Horizontal Adduction 4- Good- Comments pain with flex, abd, HADD 04/15/24: 4-/5 for all flex/abd , 4/5 ER/IR; mild pain w/ IR, flex, abd PT-OP-Q Treatments Start: 03/11/24 07:29 Freq: Status: Active Protocol: Document 04/27/24 08:16 NM (Rec: 04/27/24 09:00 NM [id number]) Therapeutic Exercises Supine Exercises shoulder IR Supine Exercise Name AROM, focus on avoiding ant translation of humerus HEP Side left Reps/Minutes 15 Comments verbal, tactile cues pt ed use of self tactile cues Sidelying Exercises left shoulder AROM Sidelying Exercise Name 1. ER, 2. HABD, 3. ABD Side left Resistance 1# Reps/Minutes 1. 2x10, 2. 10, 3. 10 w/ AROM and 10 w/ 1# Comments cues for form Standing Exercises push up plus Standing Exercise Name HEP review Side bilateral Reps/Minutes 2x10 Comments verbal and visual cue for protraction rhythmic stabilization Standing Exercise Name 1. 0 deg abd, 2. 45 deg abd Side left Equipment Used yellow therabar Reps/Minutes 2x30 ea Comments challenging on L; cued for form flex + ER Standing Exercise Name HEP Wall slide with step to wall, slide, lift UE's off wall& lower w/o wal Side bilateral Resistance level 1 band Reps/Minutes 10 Comments cued for band tension, form; challenging for pt rotator cuff Standing Exercise Name B ER at 45 deg Side bilateral Resistance level 2 band Reps/Minutes 2x10x3 Comments cued shoulder relaxation Manual Therapy Treatment Consent Patient gave verbal consent for manual Yes treatment Soft Tissue Mobilization L shoulder Body Location rhomboid, rotator cuff, lat, pec, subscapularis, UT, LS Mobilization Type Cross-Friction,Rolling, Sustained Pressure Intensity/Depth Moderate Body Position Sidelying Comments and hooklying Joint Mobilizations L scapulothoracic Direction adduction, retraction Grade III Body Position Sidelying Reps/Duration 10 ea L GHJ Direction AP and Inf, post gapping, lateral distraction, ADD/IR Grade III Body Position Hooklying Reps/Duration 4x30 Comments Demos 2 cavitations of L shoulder w/ post gapping today , non-painful PT-OP-T Assessment and Plan Start: 03/11/24 07:29 Freq: Status: Active Protocol: Document 04/27/24 08:16 NM (Rec: 04/27/24 09:00 NM [id number]) Physical Therapy Assessment Goals Six Impairment strength flex/abd 3+/5 Short Term Goal (STG) Pt will improve L shoulder flexion and abduction strength to at least 4-/5 in order to demonstrate improved strength for reaching, lifting, ADLs 04/15/24: 4-/5 with ant shoulder pain STG Duration 8 weeks PROGRESSING Half-Way Goal (LTG) Pt will improve L shoulder flexion and abduction strength to at least 4/5 in order to demonstrate improved strength for reaching, lifting, ADLs LTG Duration 12 weeks Five Impairment strength ER/IR 4-/5 Short Term Goal (STG) Pt will improve L shoulder ER and IR strength to at least 4/ 5 MMT in order to demonstrate improved stabilization during reaching and lifting 04/15/24: 4/5 with ant shoulder pain STG Duration 6 weeks MET Rn Integrity Goal (LTG) Pt will improve L shoulder ER and IR strength to at least 4+ /5 MMT in order to demonstrate improved stabilization during reaching and lifting LTG Duration 12 weeks Four Impairment ROM IR apley Short Term Goal (STG) Pt will improve L shoulder IR apley scratch test to at least L1 in order to demonstrate improved ROM for dressing/ grooming 04/15/24: T10 with pain STG Duration 8 weeks MET Half-Way Goal (LTG) Pt will improve L shoulder IR apley scratch test to at least T10 in order to demonstrate improved ROM for dressing/ grooming 04/15/24: T10 with pain LTG Duration 12 weeks PROGRESSING Three Impairment ROM ER apley Short Term Goal (STG) Pt will improve L shoulder ER apley scratch test to at least C7 in order to demonstrate improved ROM for dressing/ grooming 04/15/24: to C7 (painful) STG Duration 6 weeks Half-Way Goal (LTG) Pt will improve L shoulder ER apley scratch test to at least T2 in order to demonstrate improved ROM for dressing/ grooming LTG Duration 12 weeks Two Impairment quickdash: 47.7% impairment Impairment . Short Term Goal (STG) Pt will decrease impairment score by 11% (1 MCID) in order to demonstrate improved symptom management and QOL 04/15/24: 555 impairment but pt did not fill out quickdash correctly STG Duration 6 weeks Half-Way Goal (LTG) Pt will decrease impairment score to <20% in order to demonstrate improved symptom management and QOL LTG Duration 12 weeks One Impairment ROM L flex and abd Impairment . Short Term Goal (STG) Pt will improve L shoulder flexion and abduction to at least 140 deg in order to demonstrate increased ROM for reaching 04/15/24: 144 deg flexion ( painful end range), 150 deg abduction (pain end range) STG Duration 8 weeks PROGRESSING Half-Way Goal (LTG) Pt will improve L shoulder flexion and abduction to at least 160 deg in order to demonstrate increased ROM for reaching LTG Duration 12 weeks Assessment Summary Assessment Pt tolerated session well. She does have two pops with posterior glide today, no pain ; no subluxation or reduction occurs. Progressed resistance with sidelying ER and abduction; pt pain free, but requires cues for form. Continues to demonstrate increased anterior humeral translation with IR; cued for control, form. Better form with wall lift off, but still requires cues for band tension and correct execution. To promote greater rotator cuff facilitation, continued with rhythmic stabilization and posterior cuff stability to decrease anterior shoulder translation. Pt would benefit from skilled PT for L shoulder strengthening in order to improve symptom management for reaching and lifting ADLs. Physical Therapy Plan Frequency and Duration Frequency of Treatment 2x/Week Duration of treatment (weeks) 12 Plan of Care Start Date 03/11/24 Plan of Care End Date 06/05/24 Therapeutic Interventions Therapeutic Interventions Gait Training,Home Exercise Program,Joint Mobilizations, Manual Therapy,Neuromuscular Re-education,Orthotic/ Prosthetic Management,Patient/ Caregiver Education,Self-Care/ Home Management,Sensory Integration,Soft Tissue Mobilization,Taping, Therapeutic Activities, Therapeutic Exercises Modalities Cold Pack/Ice Massage,Electric Stimulation,Hot Packs, Ultrasound Next Visit Focus/Plan Next Note Type Treatment Note Next Visit Plan Review supine IR, retrain correct form with band. Trial overhead stabilization. Progress ER and IR to 45 deg abd as tolerated. Assess tolerance to wt w/ sidelying shoulder abduction, ER. Cont w/ manual: work into ADD/ IR, inf and post humeral glide w/ AAROM as needed joint mobilizations, soft tissue mobilization
--- NOTE | 2024-05-04 09:04 | PT.OTN ---
Current Diagnoses Pain in left shoulder (05/04/24) Stiffness of left shoulder, not elsewhere classified (05/04/24) Weakness (05/04/24) Physical Therapy Treatment Note PT-OP-A Visit Information Start: 03/11/24 07:29 Freq: Status: Active Protocol: Document 05/04/24 08:10 AB (Rec: 05/04/24 09:03 AB [id number]) Out-Patient Physical Therapy Visit Information Visit Information Visit Type Treatment Note Visit Note KX required for all visits 11/05 post PN Access Code [email or web address] Visit Start Time 08:16 Visit Stop Time 09:01 Visit Number 11 Number of UNIX ENGINEER Visits 1 Evaluation Information Evaluation Date 03/11/24 Precautions Precautions blood pressure and diabetes PT-OP-B Current Condition Start: 03/11/24 07:29 Freq: Status: Active Protocol: Document 03/11/24 08:18 NM (Rec: 03/11/24 09:01 NM [id number]) Current Condition History of Current Condition Onset Date November 2023 Current Complaints pain, mobility, strength History of Current Condition Pt presents with L shoulder pain, starting about 4 months ago since November. Pt had been moving boxes and woke up one morning with pain. She states that her pain has improved but still bothers her. She reports that she has pain with lifting (e.g. grocery bag), abduction, reaching overhead, waving, driving (tends to use L hand more, especially with cross body), holding steering wheel position, lifting or holding her cast iron hanson, and sleeping (better with body pillow) if lying on L side or if sleeping without hugging pillow. No hx of previous shoulder injuries, neck injuries. No numbness or tingling. States that long sitting activities make her L shoulder feel worse. Feels likes it catches when moving , does not dislocate or sublux Prior Treatments and Tests no previous imaging or treatment for L shoulder Treatment Goals Patient/Caregiver Goals make it stop hurting PT-OP-C Subjective Start: 03/11/24 07:29 Freq: Status: Active Protocol: Document 05/04/24 08:10 AB (Rec: 05/04/24 09:03 AB [id number]) OP-PT Subjective Patient Comments Patient Comments AROM left shoulder flexion 134 deg start of session. Aislinn reports the shoulder is better , but is babying it, hasn't tried to lift anything. Patient reports the popping less, and pinching sensation with horizontal ( performs movement ) adduction. AROM left shoulder flexion. PT-OP-E Functional Tests Start: 03/11/24 07:29 Freq: Status: Active Protocol: Document 03/11/24 08:18 NM (Rec: 03/11/24 09:01 NM [id number]) Functional Tests Apley's Scratch Test Action 1- Left distal clavicle, painful Action 1- Right posterior cuff Action 2- Left base of occiput, painful Action 2- Right T2 Action 3- Left L5, painful Action 3- Right T10 PT-OP-F Manual Assessment Start: 03/11/24 07:29 Freq: Status: Active Protocol: Document 03/11/24 08:18 NM (Rec: 03/11/24 09:01 NM [id number]) Manual Assessments Soft Tissue Assessment Soft Tissue Mobility Assessment Restrictions of cervical paraspinals, rhomboids, lat Joint Mobility Assessment Joint Mobility Assessment Decreased humeral gliding posteriorly and inferiorly during both AROM and PROM, early scapular mobility during arm elevation and return PT-OP-J Posture/Palpation/Skin Start: 03/11/24 07:29 Freq: Status: Active Protocol: Document 03/11/24 08:18 NM (Rec: 03/11/24 12:58 NM [id number]) Posture Evaluation Position Standing Head/C-Spine Posture Forward Head Shoulder Posture (L) Forward,(R) Forward,(L) Elevated Scapula Posture (L) Elevated,(L) Tipped Palpation Assessment Location L shoulder Palpation Details tightness of periscapulars especially rhomboids and cervical paraspinals on L side no tenderness of long head biceps tendon, rotator cuff, AC joint PT-OP-K Range of Motion Start: 03/11/24 07:29 Freq: Status: Active Protocol: Document 04/15/24 07:42 NM (Rec: 04/15/24 07:47 NM [id number]) Shoulder Goniometric Range of Motion Shoulder Left Flexion 130 Extension 50 Abduction 125 External Rotation at 90 degrees 65 Abduction External Rotation at 0 degrees Abduction 60 Internal Rotation 60 Comments pain with all, IR worse and abd 04/06/24: 135 deg flex, 130 deg abd 04/15/24: PT-OP-L Special Tests Start: 03/11/24 07:29 Freq: Status: Active Protocol: Document 03/11/24 08:18 NM (Rec: 03/11/24 09:01 NM [id number]) Special Tests Cervical Spine Special Tests Spurling's Test Test Results - Shoulder Special Tests Lift-Off Rotator Cuff Test Results + Comments painful with lift off but no limitation in strength Empty Can Test Results + Comments IR more painful than ER, both weak Passive ER Rotator Cuff Test Results - Neer Impingement Test Results + Tirado Amish Impingement Test Results + Elevation Impingement Test Results + PT-OP-M Strength Start: 03/11/24 07:29 Freq: Status: Active Protocol: Document 04/15/24 07:42 NM (Rec: 04/15/24 07:47 NM [id number]) Shoulder Strength Shoulder Manual Muscle Testing Left Flexion 3+ Fair+ Abduction (C5) 3+ Fair+ External Rotation 4- Good- Internal Rotation 4- Good- Horizontal Abduction 4 Good Horizontal Adduction 4- Good- Comments pain with flex, abd, HADD 04/15/24: 4-/5 for all flex/abd , 4/5 ER/IR; mild pain w/ IR, flex, abd PT-OP-Q Treatments Start: 03/11/24 07:29 Freq: Status: Active Protocol: Document 05/04/24 08:10 AB (Rec: 05/04/24 09:03 AB [id number]) Therapeutic Exercises Supine Exercises flexion Reps/Minutes X10 with 10 sec hold Comments post manual to increase AROM shoulder IR Supine Exercise Name AROM, focus on avoiding ant translation of humerus HEP Side left Resistance 1lb Reps/Minutes 10 Comments verbal cues to perform in pain free range Sidelying Exercises open book Side bilateral Reps/Minutes 5 Comments verbal cues tohold for 5 breaths Sitting Exercises short sit Sitting Exercise Name side sit to forearm to upright Reps/Minutes X10 each side Comments verbal cues Standing Exercises statue of [employer] Standing Exercise Name shoulder rhythmic oscillation Side left Resistance yellow therabar Reps/Minutes verbal and visual cues ER and IR Standing Exercise Name at ~ 45 deg abduction/ shoulders Side bilateral Resistance level one band Reps/Minutes X10 each exercise Comments verbal and visual cues flex + ER Standing Exercise Name HEP Wall slide with step to wall, slide, lift UE's off wall& lower w/o wal Side bilateral Resistance level 1 band Reps/Minutes 5 Comments Verbal cues to step to wall to increase height of wall slide . Manual Therapy Treatment Consent Patient gave verbal consent for manual Yes treatment Soft Tissue Mobilization L shoulder Body Location rhomboid, rotator cuff, lat, pec, subscapularis, UT, LS, biceps Mobilization Type Cross-Friction,Rolling, Sustained Pressure Intensity/Depth Moderate Body Position Sidelying Comments and hooklying Joint Mobilizations 1st rib Joint L Direction caudal Grade II Body Position Hooklying Reps/Duration x15 L scapulothoracic Direction adduction, retraction Grade III Body Position Sidelying Reps/Duration 10 ea L GHJ Direction AP and Inf, post gapping, lateral distraction, ADD/IR Grade III Body Position Hooklying Reps/Duration 4x30 Comments Demos 2 cavitations of L shoulder w/ post gapping today , non-painful PT-OP-T Assessment and Plan Start: 03/11/24 07:29 Freq: Status: Active Protocol: Document 05/04/24 08:10 AB (Rec: 05/04/24 09:03 AB [id number]) Physical Therapy Assessment Goals Six Impairment strength flex/abd 3+/5 Short Term Goal (STG) Pt will improve L shoulder flexion and abduction strength to at least 4-/5 in order to demonstrate improved strength for reaching, lifting, ADLs 04/15/24: 4-/5 with ant shoulder pain STG Duration 8 weeks PROGRESSING Lead Embedded Software Engineer Goal (LTG) Pt will improve L shoulder flexion and abduction strength to at least 4/5 in order to demonstrate improved strength for reaching, lifting, ADLs LTG Duration 12 weeks Five Impairment strength ER/IR 4-/5 Short Term Goal (STG) Pt will improve L shoulder ER and IR strength to at least 4/ 5 MMT in order to demonstrate improved stabilization during reaching and lifting 04/15/24: 4/5 with ant shoulder pain STG Duration 6 weeks MET Lead Embedded Software Engineer Goal (LTG) Pt will improve L shoulder ER and IR strength to at least 4+ /5 MMT in order to demonstrate improved stabilization during reaching and lifting LTG Duration 12 weeks Four Impairment ROM IR apley Short Term Goal (STG) Pt will improve L shoulder IR apley scratch test to at least L1 in order to demonstrate improved ROM for dressing/ grooming 04/15/24: T10 with pain STG Duration 8 weeks MET Lead Embedded Software Engineer Goal (LTG) Pt will improve L shoulder IR apley scratch test to at least T10 in order to demonstrate improved ROM for dressing/ grooming 04/15/24: T10 with pain LTG Duration 12 weeks PROGRESSING Three Impairment ROM ER apley Short Term Goal (STG) Pt will improve L shoulder ER apley scratch test to at least C7 in order to demonstrate improved ROM for dressing/ grooming 04/15/24: to C7 (painful) STG Duration 6 weeks [facility] Goal (LTG) Pt will improve L shoulder ER apley scratch test to at least T2 in order to demonstrate improved ROM for dressing/ grooming LTG Duration 12 weeks Two Impairment quickdash: 47.7% impairment Impairment . Short Term Goal (STG) Pt will decrease impairment score by 11% (1 MCID) in order to demonstrate improved symptom management and QOL 04/15/24: 555 impairment but pt did not fill out quickdash correctly STG Duration 6 weeks [facility] Goal (LTG) Pt will decrease impairment score to <20% in order to demonstrate improved symptom management and QOL LTG Duration 12 weeks One Impairment ROM L flex and abd Impairment . Short Term Goal (STG) Pt will improve L shoulder flexion and abduction to at least 140 deg in order to demonstrate increased ROM for reaching 04/15/24: 144 deg flexion ( painful end range), 150 deg abduction (pain end range) STG Duration 8 weeks PROGRESSING [facility] Goal (LTG) Pt will improve L shoulder flexion and abduction to at least 160 deg in order to demonstrate increased ROM for reaching LTG Duration 12 weeks Assessment Summary Assessment AROM left shoulder flexion 147 deg end of session, with patient rating pain 2/10 end of session with movement, no pain at rest per patient. Aislinn verbalizes self cue to keep tension on band with wall slide. Physical Therapy Plan Frequency and Duration Frequency of Treatment 2x/Week Duration of treatment (weeks) 12 Plan of Care Start Date 03/11/24 Plan of Care End Date 06/05/24 Next Visit Focus/Plan Next Note Type Treatment Note Next Visit Plan Review supine IR/possibly add weight to HEP, retrain correct form with band. Trial overhead stabilization. In clinic ER and IR to 45 deg abd as tolerated. Assess tolerance to wt w/ sidelying shoulder abduction, ER. Cont w/ manual: work into ADD/ IR, inf and post humeral glide w/ AAROM as needed joint mobilizations, soft tissue mobilization.
--- NOTE | 2024-05-11 10:40 | PT.OTN ---
Current Diagnoses Pain in left shoulder (05/11/24) Stiffness of left shoulder, not elsewhere classified (05/11/24) Weakness (05/11/24) Physical Therapy Treatment Note PT-OP-A Visit Information Start: 03/11/24 07:29 Freq: Status: Active Protocol: Document 05/11/24 08:14 AB (Rec: 05/11/24 09:03 AB [id number]) Out-Patient Physical Therapy Visit Information Visit Information Visit Type Treatment Note Visit Note KX required for all visits 11/05 post PN Access Code [email or web address] Visit Start Time 08:17 Visit Stop Time 09:02 Visit Number 12 Number of CLINICAL SPECIALIST Visits 2 Evaluation Information Evaluation Date 03/11/24 Precautions Precautions blood pressure and diabetes PT-OP-B Current Condition Start: 03/11/24 07:29 Freq: Status: Active Protocol: Document 03/11/24 08:18 NM (Rec: 03/11/24 09:01 NM [id number]) Current Condition History of Current Condition Onset Date November 2023 Current Complaints pain, mobility, strength History of Current Condition Pt presents with L shoulder pain, starting about 4 months ago since November. Pt had been moving boxes and woke up one morning with pain. She states that her pain has improved but still bothers her. She reports that she has pain with lifting (e.g. grocery bag), abduction, reaching overhead, waving, driving (tends to use L hand more, especially with cross body), holding steering wheel position, lifting or holding her cast iron hanson, and sleeping (better with body pillow) if lying on L side or if sleeping without hugging pillow. No hx of previous shoulder injuries, neck injuries. No numbness or tingling. States that long sitting activities make her L shoulder feel worse. Feels likes it catches when moving , does not dislocate or sublux Prior Treatments and Tests no previous imaging or treatment for L shoulder Treatment Goals Patient/Caregiver Goals make it stop hurting PT-OP-C Subjective Start: 03/11/24 07:29 Freq: Status: Active Protocol: Document 05/11/24 08:14 AB (Rec: 05/11/24 09:03 AB [id number]) OP-PT Subjective Patient Comments Patient Comments Patient rates pain 2-3/10 with movement AROM left shoulder flexion 134 deg. Patient reports difficutly sleeping due to not at home over weekend, didn't have her pillows to position. PT-OP-E Functional Tests Start: 03/11/24 07:29 Freq: Status: Active Protocol: Document 03/11/24 08:18 NM (Rec: 03/11/24 09:01 NM [id number]) Functional Tests Apley's Scratch Test Action 1- Left distal clavicle, painful Action 1- Right posterior cuff Action 2- Left base of occiput, painful Action 2- Right T2 Action 3- Left L5, painful Action 3- Right T10 PT-OP-F Manual Assessment Start: 03/11/24 07:29 Freq: Status: Active Protocol: Document 03/11/24 08:18 NM (Rec: 03/11/24 09:01 NM [id number]) Manual Assessments Soft Tissue Assessment Soft Tissue Mobility Assessment Restrictions of cervical paraspinals, rhomboids, lat Joint Mobility Assessment Joint Mobility Assessment Decreased humeral gliding posteriorly and inferiorly during both AROM and PROM, early scapular mobility during arm elevation and return PT-OP-J Posture/Palpation/Skin Start: 03/11/24 07:29 Freq: Status: Active Protocol: Document 03/11/24 08:18 NM (Rec: 03/11/24 12:58 NM [id number]) Posture Evaluation Position Standing Head/C-Spine Posture Forward Head Shoulder Posture (L) Forward,(R) Forward,(L) Elevated Scapula Posture (L) Elevated,(L) Tipped Palpation Assessment Location L shoulder Palpation Details tightness of periscapulars especially rhomboids and cervical paraspinals on L side no tenderness of long head biceps tendon, rotator cuff, AC joint PT-OP-K Range of Motion Start: 03/11/24 07:29 Freq: Status: Active Protocol: Document 04/15/24 07:42 NM (Rec: 04/15/24 07:47 NM [id number]) Shoulder Goniometric Range of Motion Shoulder Left Flexion 130 Extension 50 Abduction 125 External Rotation at 90 degrees 65 Abduction External Rotation at 0 degrees Abduction 60 Internal Rotation 60 Comments pain with all, IR worse and abd 04/06/24: 135 deg flex, 130 deg abd 24: PT-OP-L Special Tests Start: 03/11/24 07:29 Freq: Status: Active Protocol: Document 03/11/24 08:18 NM (Rec: 03/11/24 09:01 NM [id number]) Special Tests Cervical Spine Special Tests Spurling's Test Test Results - Shoulder Special Tests Lift-Off Rotator Cuff Test Results + Comments painful with lift off but no limitation in strength Empty Can Test Results + Comments IR more painful than ER, both weak Passive ER Rotator Cuff Test Results - Neer Impingement Test Results + Tirado Amish Impingement Test Results + Elevation Impingement Test Results + PT-OP-M Strength Start: 03/11/24 07:29 Freq: Status: Active Protocol: Document 04/15/24 07:42 NM (Rec: 04/15/24 07:47 NM [id number]) Shoulder Strength Shoulder Manual Muscle Testing Left Flexion 3+ Fair+ Abduction (C5) 3+ Fair+ External Rotation 4- Good- Internal Rotation 4- Good- Horizontal Abduction 4 Good Horizontal Adduction 4- Good- Comments pain with flex, abd, HADD 04/15/24: 4-/5 for all flex/abd , 4/5 ER/IR; mild pain w/ IR, flex, abd PT-OP-Q Treatments Start: 03/11/24 07:29 Freq: Status: Active Protocol: Document 05/11/24 08:14 AB (Rec: 05/11/24 09:03 AB [id number]) Therapeutic Exercises Supine Exercises shoulder IR Supine Exercise Name AROM, focus on avoiding ant translation of humerus HEP Side left Resistance 1lb (1 lb to HEP) Reps/Minutes 15 Comments review of self tactile cues Sidelying Exercises left shoulder AROM Sidelying Exercise Name 1. ER, 2. HABD, 3. ABD Side left Resistance 1# Reps/Minutes X10 open book Side bilateral Reps/Minutes 8 Comments verbal cues tohold for 5 breaths Standing Exercises L stretch Side bilateral Reps/Minutes X5 with 10 secon hold Comments Verbal and visual cues , monitored for pain push up plus Standing Exercise Name HEP review Side bilateral Reps/Minutes X15 Comments verbal and visual cue for protraction flex + ER Standing Exercise Name HEP Wall slide with step to wall, slide, lift UE's off wall& lower w/o wal Side bilateral Resistance level 1 band Reps/Minutes 10 Comments Verbal cues to step closer to the wall Manual Therapy Treatment Consent Patient gave verbal consent for manual Yes treatment Soft Tissue Mobilization L shoulder Body Location rhomboid, rotator cuff, lat, pec, subscapularis, UT, LS, biceps Mobilization Type Cross-Friction,Rolling, Sustained Pressure Intensity/Depth Moderate Body Position Sidelying Comments and hooklying Joint Mobilizations AC and SC Joint left Direction inf Grade III Body Position Hooklying Reps/Duration 2X10 L scapulothoracic Direction adduction, retraction Grade III Body Position Sidelying Reps/Duration 10 ea L GHJ Direction AP and Inf, post gapping, lateral distraction, ADD/IR Grade III Body Position Hooklying Reps/Duration 4x30 Comments Demos 2 cavitations of L shoulder w/ post gapping today , non-painful Manual Techniques contract relax Type left shoulder IR and ER Reps/Duration X2 each ~30 sec PT-OP-T Assessment and Plan Start: 03/11/24 07:29 Freq: Status: Active Protocol: Document 05/11/24 08:14 AB (Rec: 05/11/24 09:03 AB [id number]) Physical Therapy Assessment Goals Six Impairment strength flex/abd 3+/5 Short Term Goal (STG) Pt will improve L shoulder flexion and abduction strength to at least 4-/5 in order to demonstrate improved strength for reaching, lifting, ADLs 04/15/24: 4-/5 with ant shoulder pain STG Duration 8 weeks PROGRESSING Pattern Clerk Goal (LTG) Pt will improve L shoulder flexion and abduction strength to at least 4/5 in order to demonstrate improved strength for reaching, lifting, ADLs LTG Duration 12 weeks Five Impairment strength ER/IR 4-/5 Short Term Goal (STG) Pt will improve L shoulder ER and IR strength to at least 4/ 5 MMT in order to demonstrate improved stabilization during reaching and lifting 04/15/24: 4/5 with ant shoulder pain STG Duration 6 weeks MET Pattern Clerk Goal (LTG) Pt will improve L shoulder ER and IR strength to at least 4+ /5 MMT in order to demonstrate improved stabilization during reaching and lifting LTG Duration 12 weeks Four Impairment ROM IR apley Short Term Goal (STG) Pt will improve L shoulder IR apley scratch test to at least L1 in order to demonstrate improved ROM for dressing/ grooming 04/15/24: T10 with pain STG Duration 8 weeks MET Intermediate Goal (LTG) Pt will improve L shoulder IR apley scratch test to at least T10 in order to demonstrate improved ROM for dressing/ grooming 04/15/24: T10 with pain LTG Duration 12 weeks PROGRESSING Three Impairment ROM ER apley Short Term Goal (STG) Pt will improve L shoulder ER apley scratch test to at least C7 in order to demonstrate improved ROM for dressing/ grooming 04/15/24: to C7 (painful) STG Duration 6 weeks Intermediate Goal (LTG) Pt will improve L shoulder ER apley scratch test to at least T2 in order to demonstrate improved ROM for dressing/ grooming LTG Duration 12 weeks Two Impairment quickdash: 47.7% impairment Impairment . Short Term Goal (STG) Pt will decrease impairment score by 11% (1 MCID) in order to demonstrate improved symptom management and QOL 04/15/24: 555 impairment but pt did not fill out quickdash correctly STG Duration 6 weeks Intermediate Goal (LTG) Pt will decrease impairment score to <20% in order to demonstrate improved symptom management and QOL LTG Duration 12 weeks One Impairment ROM L flex and abd Impairment . Short Term Goal (STG) Pt will improve L shoulder flexion and abduction to at least 140 deg in order to demonstrate increased ROM for reaching 04/15/24: 144 deg flexion ( painful end range), 150 deg abduction (pain end range) STG Duration 8 weeks PROGRESSING Intermediate Goal (LTG) Pt will improve L shoulder flexion and abduction to at least 160 deg in order to demonstrate increased ROM for reaching LTG Duration 12 weeks Assessment Summary Assessment AROM left shoulder flexion 148 deg post L stretch. Patient continues to rate pain 2-3/10 with movement. Physical Therapy Plan Frequency and Duration Frequency of Treatment 2x/Week Duration of treatment (weeks) 12 Plan of Care Start Date 03/11/24 Plan of Care End Date 06/05/24 Next Visit Focus/Plan Next Note Type Treatment Note Next Visit Plan Revisit L stretch, possibly add to HEP. Review form for ER and IR with band. Trial overhead stabilization. In clinic ER and IR to 90 deg trial, abd as tolerated. Assess tolerance to wt w/ sidelying shoulder abduction, ER. Cont w/ manual: work into ADD/ IR, inf and post humeral glide w/ AAROM as needed joint mobilizations, soft tissue mobilization.
--- NOTE | 2024-05-11 13:28 | PT.OTN ---
Current Diagnoses Pain in left shoulder (05/11/24) Stiffness of left shoulder, not elsewhere classified (05/11/24) Weakness (05/11/24) Physical Therapy Treatment Note PT-OP-A Visit Information Start: 03/11/24 07:29 Freq: Status: Active Protocol: Document 05/11/24 08:14 AB (Rec: 05/11/24 09:03 AB [id number]) Out-Patient Physical Therapy Visit Information Visit Information Visit Type Treatment Note Visit Note KX required for all visits 11/05 post PN Access Code [email or web address] Visit Start Time 08:17 Visit Stop Time 09:02 Visit Number 12 Number of VP BUSINESS DEVELOPMENT Visits 2 Evaluation Information Evaluation Date 03/11/24 Precautions Precautions blood pressure and diabetes PT-OP-B Current Condition Start: 03/11/24 07:29 Freq: Status: Active Protocol: Document 03/11/24 08:18 NM (Rec: 03/11/24 09:01 NM [id number]) Current Condition History of Current Condition Onset Date November 2023 Current Complaints pain, mobility, strength History of Current Condition Pt presents with L shoulder pain, starting about 4 months ago since November. Pt had been moving boxes and woke up one morning with pain. She states that her pain has improved but still bothers her. She reports that she has pain with lifting (e.g. grocery bag), abduction, reaching overhead, waving, driving (tends to use L hand more, especially with cross body), holding steering wheel position, lifting or holding her cast iron hanson, and sleeping (better with body pillow) if lying on L side or if sleeping without hugging pillow. No hx of previous shoulder injuries, neck injuries. No numbness or tingling. States that long sitting activities make her L shoulder feel worse. Feels likes it catches when moving , does not dislocate or sublux Prior Treatments and Tests no previous imaging or treatment for L shoulder Treatment Goals Patient/Caregiver Goals make it stop hurting PT-OP-C Subjective Start: 03/11/24 07:29 Freq: Status: Active Protocol: Document 05/11/24 08:14 AB (Rec: 05/11/24 09:03 AB [id number]) OP-PT Subjective Patient Comments Patient Comments Patient rates pain 2-3/10 with movement AROM left shoulder flexion 134 deg. Patient reports difficutly sleeping due to not at home over weekend, didn't have her pillows to position. PT-OP-E Functional Tests Start: 03/11/24 07:29 Freq: Status: Active Protocol: Document 03/11/24 08:18 NM (Rec: 03/11/24 09:01 NM [id number]) Functional Tests Apley's Scratch Test Action 1- Left distal clavicle, painful Action 1- Right posterior cuff Action 2- Left base of occiput, painful Action 2- Right T2 Action 3- Left L5, painful Action 3- Right T10 PT-OP-F Manual Assessment Start: 03/11/24 07:29 Freq: Status: Active Protocol: Document 03/11/24 08:18 NM (Rec: 03/11/24 09:01 NM [id number]) Manual Assessments Soft Tissue Assessment Soft Tissue Mobility Assessment Restrictions of cervical paraspinals, rhomboids, lat Joint Mobility Assessment Joint Mobility Assessment Decreased humeral gliding posteriorly and inferiorly during both AROM and PROM, early scapular mobility during arm elevation and return PT-OP-J Posture/Palpation/Skin Start: 03/11/24 07:29 Freq: Status: Active Protocol: Document 03/11/24 08:18 NM (Rec: 03/11/24 12:58 NM [id number]) Posture Evaluation Position Standing Head/C-Spine Posture Forward Head Shoulder Posture (L) Forward,(R) Forward,(L) Elevated Scapula Posture (L) Elevated,(L) Tipped Palpation Assessment Location L shoulder Palpation Details tightness of periscapulars especially rhomboids and cervical paraspinals on L side no tenderness of long head biceps tendon, rotator cuff, AC joint PT-OP-K Range of Motion Start: 03/11/24 07:29 Freq: Status: Active Protocol: Document 04/15/24 07:42 NM (Rec: 04/15/24 07:47 NM [id number]) Shoulder Goniometric Range of Motion Shoulder Left Flexion 130 Extension 50 Abduction 125 External Rotation at 90 degrees 65 Abduction External Rotation at 0 degrees Abduction 60 Internal Rotation 60 Comments pain with all, IR worse and abd 04/06/24: 135 deg flex, 130 deg abd 24: PT-OP-L Special Tests Start: 03/11/24 07:29 Freq: Status: Active Protocol: Document 03/11/24 08:18 NM (Rec: 03/11/24 09:01 NM [id number]) Special Tests Cervical Spine Special Tests Spurling's Test Test Results - Shoulder Special Tests Lift-Off Rotator Cuff Test Results + Comments painful with lift off but no limitation in strength Empty Can Test Results + Comments IR more painful than ER, both weak Passive ER Rotator Cuff Test Results - Neer Impingement Test Results + Tirado Amish Impingement Test Results + Elevation Impingement Test Results + PT-OP-M Strength Start: 03/11/24 07:29 Freq: Status: Active Protocol: Document 04/15/24 07:42 NM (Rec: 04/15/24 07:47 NM [id number]) Shoulder Strength Shoulder Manual Muscle Testing Left Flexion 3+ Fair+ Abduction (C5) 3+ Fair+ External Rotation 4- Good- Internal Rotation 4- Good- Horizontal Abduction 4 Good Horizontal Adduction 4- Good- Comments pain with flex, abd, HADD 04/15/24: 4-/5 for all flex/abd , 4/5 ER/IR; mild pain w/ IR, flex, abd PT-OP-Q Treatments Start: 03/11/24 07:29 Freq: Status: Active Protocol: Document 05/11/24 08:14 AB (Rec: 05/11/24 09:03 AB [id number]) Therapeutic Exercises Supine Exercises shoulder IR Supine Exercise Name AROM, focus on avoiding ant translation of humerus HEP Side left Resistance 1lb (1 lb to HEP) Reps/Minutes 15 Comments review of self tactile cues Sidelying Exercises left shoulder AROM Sidelying Exercise Name 1. ER, 2. HABD, 3. ABD Side left Resistance 1# Reps/Minutes X10 open book Side bilateral Reps/Minutes 8 Comments verbal cues tohold for 5 breaths Standing Exercises L stretch Side bilateral Reps/Minutes X5 with 10 secon hold Comments Verbal and visual cues , monitored for pain push up plus Standing Exercise Name HEP review Side bilateral Reps/Minutes X15 Comments verbal and visual cue for protraction flex + ER Standing Exercise Name HEP Wall slide with step to wall, slide, lift UE's off wall& lower w/o wal Side bilateral Resistance level 1 band Reps/Minutes 10 Comments Verbal cues to step closer to the wall Manual Therapy Treatment Consent Patient gave verbal consent for manual Yes treatment Soft Tissue Mobilization L shoulder Body Location rhomboid, rotator cuff, lat, pec, subscapularis, UT, LS, biceps Mobilization Type Cross-Friction,Rolling, Sustained Pressure Intensity/Depth Moderate Body Position Sidelying Comments and hooklying Joint Mobilizations AC and SC Joint left Direction inf Grade III Body Position Hooklying Reps/Duration 2X10 L scapulothoracic Direction adduction, retraction Grade III Body Position Sidelying Reps/Duration 10 ea L GHJ Direction AP and Inf, post gapping, lateral distraction, ADD/IR Grade III Body Position Hooklying Reps/Duration 4x30 Comments Demos 2 cavitations of L shoulder w/ post gapping today , non-painful Manual Techniques contract relax Type left shoulder IR and ER Reps/Duration X2 each ~30 sec PT-OP-T Assessment and Plan Start: 03/11/24 07:29 Freq: Status: Active Protocol: Document 05/11/24 08:14 AB (Rec: 05/11/24 09:03 AB [id number]) Physical Therapy Assessment Goals Six Impairment strength flex/abd 3+/5 Short Term Goal (STG) Pt will improve L shoulder flexion and abduction strength to at least 4-/5 in order to demonstrate improved strength for reaching, lifting, ADLs 04/15/24: 4-/5 with ant shoulder pain STG Duration 8 weeks PROGRESSING Dietitian Teaching Goal (LTG) Pt will improve L shoulder flexion and abduction strength to at least 4/5 in order to demonstrate improved strength for reaching, lifting, ADLs LTG Duration 12 weeks Five Impairment strength ER/IR 4-/5 Short Term Goal (STG) Pt will improve L shoulder ER and IR strength to at least 4/ 5 MMT in order to demonstrate improved stabilization during reaching and lifting 04/15/24: 4/5 with ant shoulder pain STG Duration 6 weeks MET Dietitian Teaching Goal (LTG) Pt will improve L shoulder ER and IR strength to at least 4+ /5 MMT in order to demonstrate improved stabilization during reaching and lifting LTG Duration 12 weeks Four Impairment ROM IR apley Short Term Goal (STG) Pt will improve L shoulder IR apley scratch test to at least L1 in order to demonstrate improved ROM for dressing/ grooming 04/15/24: T10 with pain STG Duration 8 weeks MET Retirement Goal (LTG) Pt will improve L shoulder IR apley scratch test to at least T10 in order to demonstrate improved ROM for dressing/ grooming 04/15/24: T10 with pain LTG Duration 12 weeks PROGRESSING Three Impairment ROM ER apley Short Term Goal (STG) Pt will improve L shoulder ER apley scratch test to at least C7 in order to demonstrate improved ROM for dressing/ grooming 04/15/24: to C7 (painful) STG Duration 6 weeks Retirement Goal (LTG) Pt will improve L shoulder ER apley scratch test to at least T2 in order to demonstrate improved ROM for dressing/ grooming LTG Duration 12 weeks Two Impairment quickdash: 47.7% impairment Impairment . Short Term Goal (STG) Pt will decrease impairment score by 11% (1 MCID) in order to demonstrate improved symptom management and QOL 04/15/24: 555 impairment but pt did not fill out quickdash correctly STG Duration 6 weeks Retirement Goal (LTG) Pt will decrease impairment score to <20% in order to demonstrate improved symptom management and QOL LTG Duration 12 weeks One Impairment ROM L flex and abd Impairment . Short Term Goal (STG) Pt will improve L shoulder flexion and abduction to at least 140 deg in order to demonstrate increased ROM for reaching 04/15/24: 144 deg flexion ( painful end range), 150 deg abduction (pain end range) STG Duration 8 weeks PROGRESSING Retirement Goal (LTG) Pt will improve L shoulder flexion and abduction to at least 160 deg in order to demonstrate increased ROM for reaching LTG Duration 12 weeks Assessment Summary Assessment AROM left shoulder flexion 148 deg post L stretch. Patient continues to rate pain 2-3/10 with movement. Physical Therapy Plan Frequency and Duration Frequency of Treatment 2x/Week Duration of treatment (weeks) 12 Plan of Care Start Date 03/11/24 Plan of Care End Date 06/05/24 Next Visit Focus/Plan Next Note Type Treatment Note Next Visit Plan Revisit L stretch, possibly add to HEP. Review form for ER and IR with band. Trial overhead stabilization. In clinic ER and IR to 90 deg trial, abd as tolerated. Assess tolerance to wt w/ sidelying shoulder abduction, ER. Cont w/ manual: work into ADD/ IR, inf and post humeral glide w/ AAROM as needed joint mobilizations, soft tissue mobilization.
--- NOTE | 2024-05-14 09:25 | PT.OTN ---
Current Diagnoses Pain in left shoulder (05/14/24) Stiffness of left shoulder, not elsewhere classified (05/14/24) Weakness (05/14/24) Physical Therapy Treatment Note PT-OP-A Visit Information Start: 03/11/24 07:29 Freq: Status: Active Protocol: Document 05/14/24 07:26 NM (Rec: 05/14/24 07:27 NM [id number]) Out-Patient Physical Therapy Visit Information Visit Information Visit Type Progress Note Visit Note KX required for all visits 11/05 post PN Access Code [id number] Visit Start Time 08:19 Visit Stop Time 09:00 Visit Number 13 Evaluation Information Evaluation Date 03/11/24 Precautions Precautions blood pressure and diabetes PT-OP-B Current Condition Start: 03/11/24 07:29 Freq: Status: Active Protocol: Document 03/11/24 08:18 NM (Rec: 03/11/24 09:01 NM [id number]) Current Condition History of Current Condition Onset Date November 2023 Current Complaints pain, mobility, strength History of Current Condition Pt presents with L shoulder pain, starting about 4 months ago since November. Pt had been moving boxes and woke up one morning with pain. She states that her pain has improved but still bothers her. She reports that she has pain with lifting (e.g. grocery bag), abduction, reaching overhead, waving, driving (tends to use L hand more, especially with cross body), holding steering wheel position, lifting or holding her cast iron hanson, and sleeping (better with body pillow) if lying on L side or if sleeping without hugging pillow. No hx of previous shoulder injuries, neck injuries. No numbness or tingling. States that long sitting activities make her L shoulder feel worse. Feels likes it catches when moving , does not dislocate or sublux Prior Treatments and Tests no previous imaging or treatment for L shoulder Treatment Goals Patient/Caregiver Goals make it stop hurting PT-OP-C Subjective Start: 03/11/24 07:29 Freq: Status: Active Protocol: Document 05/14/24 07:26 NM (Rec: 05/14/24 07:27 NM [id number]) OP-PT Subjective Patient Comments Patient Comments Pt reports that her shoulder is improving. She reports she lifted a grocery bag (states not heavy) from car to door, states hurts less bad since starting PT. Has 1 more appt then will be out of town for 2 weeks before returning for remaining sessions; planning on lifting her luggage overhead, will be checking bag . States can lift big pot of soup but challenging, no limitations with cooking; states pretty good with day to day. Unable to lift suitcase, still has occasional pain with sleeping/at night and HABD. PT-OP-E Functional Tests Start: 03/11/24 07:29 Freq: Status: Active Protocol: Document 03/11/24 08:18 NM (Rec: 03/11/24 09:01 NM [id number]) Functional Tests Apley's Scratch Test Action 1- Left distal clavicle, painful Action 1- Right posterior cuff Action 2- Left base of occiput, painful Action 2- Right T2 Action 3- Left L5, painful Action 3- Right T10 PT-OP-F Manual Assessment Start: 03/11/24 07:29 Freq: Status: Active Protocol: Document 03/11/24 08:18 NM (Rec: 03/11/24 09:01 NM [id number]) Manual Assessments Soft Tissue Assessment Soft Tissue Mobility Assessment Restrictions of cervical paraspinals, rhomboids, lat Joint Mobility Assessment Joint Mobility Assessment Decreased humeral gliding posteriorly and inferiorly during both AROM and PROM, early scapular mobility during arm elevation and return PT-OP-J Posture/Palpation/Skin Start: 03/11/24 07:29 Freq: Status: Active Protocol: Document 03/11/24 08:18 NM (Rec: 03/11/24 12:58 NM [id number]) Posture Evaluation Position Standing Head/C-Spine Posture Forward Head Shoulder Posture (L) Forward,(R) Forward,(L) Elevated Scapula Posture (L) Elevated,(L) Tipped Palpation Assessment Location L shoulder Palpation Details tightness of periscapulars especially rhomboids and cervical paraspinals on L side no tenderness of long head biceps tendon, rotator cuff, AC joint PT-OP-K Range of Motion Start: 03/11/24 07:29 Freq: Status: Active Protocol: Document 05/14/24 07:26 NM (Rec: 05/14/24 07:27 NM [id number]) Shoulder Goniometric Range of Motion Shoulder Right Flexion 160 Extension 60 Abduction 160 External Rotation at 90 degrees 80 Abduction External Rotation at 0 degrees Abduction 60 Internal Rotation 80 Left Flexion 105 Extension 50 Abduction 160 External Rotation at 90 degrees 60 Abduction External Rotation at 0 degrees Abduction 60 Internal Rotation 50 Comments pain with all, IR worse and abd 04/06/24: 135 deg flex, 130 deg abd 05/14/24: 150 deg flex, 160 deg abd, T1 ER apley and 50 deg ER, T12 IR PT-OP-L Special Tests Start: 03/11/24 07:29 Freq: Status: Active Protocol: Document 03/11/24 08:18 NM (Rec: 03/11/24 09:01 NM [id number]) Special Tests Cervical Spine Special Tests Spurling's Test Test Results - Shoulder Special Tests Lift-Off Rotator Cuff Test Results + Comments painful with lift off but no limitation in strength Empty Can Test Results + Comments IR more painful than ER, both weak Passive ER Rotator Cuff Test Results - Neer Impingement Test Results + Tirado Amish Impingement Test Results + Elevation Impingement Test Results + PT-OP-M Strength Start: 03/11/24 07:29 Freq: Status: Active Protocol: Document 05/14/24 07:26 NM (Rec: 05/14/24 07:27 NM [id number]) Shoulder Strength Shoulder Manual Muscle Testing Right Flexion 4+ Good+ Abduction (C5) 4 Good External Rotation 4+ Good+ Internal Rotation 4 Good Horizontal Abduction 4+ Good+ Horizontal Adduction 4+ Good+ Left Flexion 4 Good Abduction (C5) 4 Good External Rotation 4 Good Internal Rotation 4 Good Horizontal Abduction 4 Good Horizontal Adduction 4 Good Comments pain with flex, abd, HADD 04/15/24: 4-/5 for all flex/abd , 4/5 ER/IR; mild pain w/ IR, flex, abd 05/14/24: 4/5 for all; mild pain with resisted abduction and ER PT-OP-Q Treatments Start: 03/11/24 07:29 Freq: Status: Active Protocol: Document 05/14/24 07:26 NM (Rec: 05/14/24 07:27 NM [id number]) Therapeutic Exercises Standing Exercises PNF Standing Exercise Name D2 flexion Side left Resistance level 1 band Reps/Minutes 2x10 Comments pain free; verbal cueing to prevent anterior shoulder translation posterior glide Standing Exercise Name HEP Side left Resistance level 5 band Equipment Used band knotted in doorway Reps/Minutes 10x10 w/ L step fwd plank taps Standing Exercise Name HEP Side bilateral Equipment Used plinth- incline Reps/Minutes 2x10 taps L stretch Side bilateral Reps/Minutes 10x10 hold Comments Verbal and visual cues , monitored for pain flex + ER Side left Resistance level 1 band Equipment Used R hold band cross body at R hip Reps/Minutes 2x5 Comments cued post humeral position; not painful but feels muscle activation Manual Therapy Treatment Consent Patient gave verbal consent for manual Yes treatment Soft Tissue Mobilization L shoulder Body Location rhomboid, rotator cuff, lat, pec, subscapularis, UT, LS, biceps Mobilization Type Cross-Friction,Rolling, Sustained Pressure Intensity/Depth Moderate Body Position Sidelying Comments and hooklying Tenderness over anterior shoulder with pec and LH biceps rolling and cross friction Joint Mobilizations L scapulothoracic Direction adduction, retraction Grade III Body Position Sidelying Reps/Duration 10 ea L GHJ Direction AP and Inf, post gapping Grade III Body Position Hooklying Reps/Duration 6x30 ea Comments Bias into ER and IR with 45-90 deg abd. Monitored for pain PT-OP-T Assessment and Plan Start: 03/11/24 07:29 Freq: Status: Active Protocol: Document 05/14/24 07:26 NM (Rec: 05/14/24 07:27 NM [id number]) Physical Therapy Assessment Goals Six Impairment strength flex/abd 3+/5 Short Term Goal (STG) Pt will improve L shoulder flexion and abduction strength to at least 4-/5 in order to demonstrate improved strength for reaching, lifting, ADLs 04/15/24: 4-/5 with ant shoulder pain STG Duration 8 weeks PROGRESSING Parts Driver Goal (LTG) Pt will improve L shoulder flexion and abduction strength to at least 4/5 in order to demonstrate improved strength for reaching, lifting, ADLs 05/14/24: 4/5 flex and abd; mild pain with resisted abduction LTG Duration 12 weeks PARTIALLY MET Five Impairment strength ER/IR 4-/5 Short Term Goal (STG) Pt will improve L shoulder ER and IR strength to at least 4/ 5 MMT in order to demonstrate improved stabilization during reaching and lifting 04/15/24: 4/5 with ant shoulder pain STG Duration 6 weeks MET Parts Driver Goal (LTG) Pt will improve L shoulder ER and IR strength to at least 4+ /5 MMT in order to demonstrate improved stabilization during reaching and lifting 05/14/24: 4/5 ER and IR; mild pain with resisted ER LTG Duration 12 weeks PROGRESSING Four Impairment ROM IR apley Short Term Goal (STG) Pt will improve L shoulder IR apley scratch test to at least L1 in order to demonstrate improved ROM for dressing/ grooming 04/15/24: T10 with pain STG Duration 8 weeks MET Parts Driver Goal (LTG) Pt will improve L shoulder IR apley scratch test to at least T10 in order to demonstrate improved ROM for dressing/ grooming 04/15/24: T10 with pain 05/14/24: T12 with pain LTG Duration 12 weeks PROGRESSING Three Impairment ROM ER apley Short Term Goal (STG) Pt will improve L shoulder ER apley scratch test to at least C7 in order to demonstrate improved ROM for dressing/ grooming 04/15/24: to C7 (painful) 05/14/24: T1 STG Duration 6 weeks Parts Driver Goal (LTG) Pt will improve L shoulder ER apley scratch test to at least T2 in order to demonstrate improved ROM for dressing/ grooming 05/14/24: T1 LTG Duration 12 weeks PROGRESSING Two Impairment quickdash: 47.7% impairment Impairment . Short Term Goal (STG) Pt will decrease impairment score by 11% (1 MCID) in order to demonstrate improved symptom management and QOL 04/15/24: 555 impairment but pt did not fill out quickdash correctly 05/14/24: 35% impaired STG Duration 6 weeks MET Jail Goal (LTG) Pt will decrease impairment score to <20% in order to demonstrate improved symptom management and QOL 05/14/24: 35% impaired LTG Duration 12 weeks One Impairment ROM L flex and abd Impairment . Short Term Goal (STG) Pt will improve L shoulder flexion and abduction to at least 140 deg in order to demonstrate increased ROM for reaching 04/15/24: 144 deg flexion ( painful end range), 150 deg abduction (pain end range) 05/14/24: 150 deg flex, 160 deg abduction STG Duration 8 weeks MET Jail Goal (LTG) Pt will improve L shoulder flexion and abduction to at least 160 deg in order to demonstrate increased ROM for reaching 05/14/24: 150 deg flexion, 160 deg abd; pain with end range LTG Duration 12 weeks PARTIALLY MET Progress Towards Goals Progress Towards Goals Progressing Toward Goals,Slow Progress due to Attendance Issues,Slow Progress - Other, Goals Met Progress Comments Progressing toward all goals, partially met 2 goals. Limited by pain Assessment Summary Assessment Pt tolerated session well. Only has 2/10 L shoulder pain at end range. No resting pain. 2/10 L shoulder pain with exercise, reduced with cueing for correct execution and scapular positioning. Pt's L shoulder AROM improved compared to initial evaluation , 150 deg flexion and 160 deg abduction. Trialed posterior capsule self mobilization and continues with L stretch to improve capsular mobility; good feedback for both exercises. Initiated flexion/ ER rotator cuff strengthening with elevation. Fatigues quickly and unable to tolerate increased reps except for D2. Added plank taps to improve L shoulder stability, limit clicking in joint. Pt would benefit from skilled PT to improve L shoulder ROM and strength in order to improve symptom management with sleeping, ADLs. Physical Therapy Plan Frequency and Duration Frequency of Treatment 2x/Week Duration of treatment (weeks) 12 Plan of Care Start Date 03/11/24 Plan of Care End Date 06/05/24 Therapeutic Interventions Therapeutic Interventions Gait Training,Home Exercise Program,Joint Mobilizations, Manual Therapy,Neuromuscular Re-education,Orthotic/ Prosthetic Management,Patient/ Caregiver Education,Self-Care/ Home Management,Sensory Integration,Soft Tissue Mobilization,Taping, Therapeutic Activities, Therapeutic Exercises Modalities Cold Pack/Ice Massage,Electric Stimulation,Hot Packs, Ultrasound Other Referrals/Consults Referrals/Consults Recommended May benefit from referral to account management specialist to address continued pain with sleeping/ADLs if no further progression in next few weeks. Next Visit Focus/Plan Next Note Type Treatment Note Next Visit Plan Trial end range GHJ mobilizations. D2 flex, Review form for ER and IR with band. Trial overhead stabilization. Raises. Cont w/ manual: work into ADD/ IR, inf and post humeral glide joint mobilizations, soft tissue mobilization.
--- NOTE | 2024-05-18 11:07 | PT.OTN ---
Current Diagnoses Pain in left shoulder (05/18/24) Stiffness of left shoulder, not elsewhere classified (05/18/24) Weakness (05/18/24) Physical Therapy Treatment Note PT-OP-A Visit Information Start: 03/11/24 07:29 Freq: Status: Active Protocol: Document 05/18/24 08:14 NM (Rec: 05/18/24 09:00 NM [id number]) Out-Patient Physical Therapy Visit Information Visit Information Visit Type Treatment Note Visit Note KX required for all visits 08/07 post PN Access Code [id number] Visit Start Time 08:17 Visit Stop Time 08:58 Visit Number 14 Evaluation Information Evaluation Date 03/11/24 Precautions Precautions blood pressure and diabetes PT-OP-B Current Condition Start: 03/11/24 07:29 Freq: Status: Active Protocol: Document 03/11/24 08:18 NM (Rec: 03/11/24 09:01 NM [id number]) Current Condition History of Current Condition Onset Date November 2023 Current Complaints pain, mobility, strength History of Current Condition Pt presents with L shoulder pain, starting about 4 months ago since November. Pt had been moving boxes and woke up one morning with pain. She states that her pain has improved but still bothers her. She reports that she has pain with lifting (e.g. grocery bag), abduction, reaching overhead, waving, driving (tends to use L hand more, especially with cross body), holding steering wheel position, lifting or holding her cast iron hanson, and sleeping (better with body pillow) if lying on L side or if sleeping without hugging pillow. No hx of previous shoulder injuries, neck injuries. No numbness or tingling. States that long sitting activities make her L shoulder feel worse. Feels likes it catches when moving , does not dislocate or sublux Prior Treatments and Tests no previous imaging or treatment for L shoulder Treatment Goals Patient/Caregiver Goals make it stop hurting PT-OP-C Subjective Start: 03/11/24 07:29 Freq: Status: Active Protocol: Document 05/18/24 08:14 NM (Rec: 05/18/24 09:00 NM [id number]) OP-PT Subjective Patient Comments Patient Comments Pt reports stiff today in L shoulder, 1-2/10 with rest; worse in AM. 2-3/10 with movement. She reports that she felt pretty good after last session. She will be gone for 2 week. PT-OP-E Functional Tests Start: 03/11/24 07:29 Freq: Status: Active Protocol: Document 03/11/24 08:18 NM (Rec: 03/11/24 09:01 NM [id number]) Functional Tests Apley's Scratch Test Action 1- Left distal clavicle, painful Action 1- Right posterior cuff Action 2- Left base of occiput, painful Action 2- Right T2 Action 3- Left L5, painful Action 3- Right T10 PT-OP-F Manual Assessment Start: 03/11/24 07:29 Freq: Status: Active Protocol: Document 03/11/24 08:18 NM (Rec: 03/11/24 09:01 NM [id number]) Manual Assessments Soft Tissue Assessment Soft Tissue Mobility Assessment Restrictions of cervical paraspinals, rhomboids, lat Joint Mobility Assessment Joint Mobility Assessment Decreased humeral gliding posteriorly and inferiorly during both AROM and PROM, early scapular mobility during arm elevation and return PT-OP-J Posture/Palpation/Skin Start: 03/11/24 07:29 Freq: Status: Active Protocol: Document 03/11/24 08:18 NM (Rec: 03/11/24 12:58 NM [id number]) Posture Evaluation Position Standing Head/C-Spine Posture Forward Head Shoulder Posture (L) Forward,(R) Forward,(L) Elevated Scapula Posture (L) Elevated,(L) Tipped Palpation Assessment Location L shoulder Palpation Details tightness of periscapulars especially rhomboids and cervical paraspinals on L side no tenderness of long head biceps tendon, rotator cuff, AC joint PT-OP-K Range of Motion Start: 03/11/24 07:29 Freq: Status: Active Protocol: Document 05/14/24 07:26 NM (Rec: 05/14/24 07:27 NM [id number]) Shoulder Goniometric Range of Motion Shoulder Right Flexion 160 Extension 60 Abduction 160 External Rotation at 90 degrees 80 Abduction External Rotation at 0 degrees Abduction 60 Internal Rotation 80 Left Flexion 105 Extension 50 Abduction 160 External Rotation at 90 degrees 60 Abduction External Rotation at 0 degrees Abduction 60 Internal Rotation 50 Comments pain with all, IR worse and abd 04/06/24: 135 deg flex, 130 deg abd 05/14/24: 150 deg flex, 160 deg abd, T1 ER apley and 50 deg ER, T12 IR PT-OP-L Special Tests Start: 03/11/24 07:29 Freq: Status: Active Protocol: Document 03/11/24 08:18 NM (Rec: 03/11/24 09:01 NM [id number]) Special Tests Cervical Spine Special Tests Spurling's Test Test Results - Shoulder Special Tests Lift-Off Rotator Cuff Test Results + Comments painful with lift off but no limitation in strength Empty Can Test Results + Comments IR more painful than ER, both weak Passive ER Rotator Cuff Test Results - Neer Impingement Test Results + Tirado Amish Impingement Test Results + Elevation Impingement Test Results + PT-OP-M Strength Start: 03/11/24 07:29 Freq: Status: Active Protocol: Document 05/14/24 07:26 NM (Rec: 05/14/24 07:27 NM [id number]) Shoulder Strength Shoulder Manual Muscle Testing Right Flexion 4+ Good+ Abduction (C5) 4 Good External Rotation 4+ Good+ Internal Rotation 4 Good Horizontal Abduction 4+ Good+ Horizontal Adduction 4+ Good+ Left Flexion 4 Good Abduction (C5) 4 Good External Rotation 4 Good Internal Rotation 4 Good Horizontal Abduction 4 Good Horizontal Adduction 4 Good Comments pain with flex, abd, HADD 04/15/24: 4-/5 for all flex/abd , 4/5 ER/IR; mild pain w/ IR, flex, abd 05/14/24: 4/5 for all; mild pain with resisted abduction and ER PT-OP-Q Treatments Start: 03/11/24 07:29 Freq: Status: Active Protocol: Document 05/18/24 08:14 NM (Rec: 05/18/24 09:00 NM [id number]) Therapeutic Exercises Standing Exercises PNF Standing Exercise Name HEP- D2 flexion Side left Resistance level 1 band- under foot today Equipment Used back against wall for tactile posture cue Reps/Minutes 2x10 Comments pain free; verbal cueing to prevent anterior shoulder translation plank taps Standing Exercise Name HEP review Side bilateral Equipment Used plinth- incline Reps/Minutes 10 double taps ea shoulder Comments fatiguing L stretch Side bilateral Equipment Used counter top Reps/Minutes 10x10 hold Comments Verbal and visual cues, monitored for pain statue of [place] Standing Exercise Name 1. 0 abd, 2. 45 abd Side left Equipment Used yellow therabar Reps/Minutes 30 ea Comments wall for posture; for ER rhythmic stab ER and IR Standing Exercise Name 1. ER w/ upper cut, 2. IR w/ upper cut Side left Resistance 1. 1 level 1 band, 2. 2 level 1 band Reps/Minutes 1. 10 at wall, 10 w/ anchor at waist, 2. 2x10 Comments pain free; cued for form, better w/ wall posture for cue Manual Therapy Treatment Consent Patient gave verbal consent for manual Yes treatment Soft Tissue Mobilization L shoulder Body Location rhomboid, rotator cuff, lat, pec, subscapularis, UT, LS, biceps Mobilization Type Cross-Friction,Rolling, Sustained Pressure Intensity/Depth Moderate Body Position Sidelying Comments and hooklying Tenderness over anterior shoulder with pec and LH biceps rolling and cross friction Joint Mobilizations L scapulothoracic Direction adduction, retraction Grade III Body Position Sidelying Reps/Duration 10 ea L GHJ Direction AP and Inf, post gapping Grade III Body Position Hooklying Reps/Duration 6x30 ea Comments Bias into ER and IR with 45-90 deg abd. Monitored for pain PT-OP-T Assessment and Plan Start: 03/11/24 07:29 Freq: Status: Active Protocol: Document 05/18/24 08:14 NM (Rec: 05/18/24 09:00 NM [id number]) Physical Therapy Assessment Goals Six Impairment strength flex/abd 3+/5 Short Term Goal (STG) Pt will improve L shoulder flexion and abduction strength to at least 4-/5 in order to demonstrate improved strength for reaching, lifting, ADLs 04/15/24: 4-/5 with ant shoulder pain STG Duration 8 weeks PROGRESSING Nursing Home Goal (LTG) Pt will improve L shoulder flexion and abduction strength to at least 4/5 in order to demonstrate improved strength for reaching, lifting, ADLs 05/14/24: 4/5 flex and abd; mild pain with resisted abduction LTG Duration 12 weeks PARTIALLY MET Five Impairment strength ER/IR 4-/5 Short Term Goal (STG) Pt will improve L shoulder ER and IR strength to at least 4/ 5 MMT in order to demonstrate improved stabilization during reaching and lifting 04/15/24: 4/5 with ant shoulder pain STG Duration 6 weeks MET Nursing Home Goal (LTG) Pt will improve L shoulder ER and IR strength to at least 4+ /5 MMT in order to demonstrate improved stabilization during reaching and lifting 05/14/24: 4/5 ER and IR; mild pain with resisted ER LTG Duration 12 weeks PROGRESSING Four Impairment ROM IR apley Short Term Goal (STG) Pt will improve L shoulder IR apley scratch test to at least L1 in order to demonstrate improved ROM for dressing/ grooming 04/15/24: T10 with pain STG Duration 8 weeks MET Nursing Home Goal (LTG) Pt will improve L shoulder IR apley scratch test to at least T10 in order to demonstrate improved ROM for dressing/ grooming 04/15/24: T10 with pain 05/14/24: T12 with pain LTG Duration 12 weeks PROGRESSING Three Impairment ROM ER apley Short Term Goal (STG) Pt will improve L shoulder ER apley scratch test to at least C7 in order to demonstrate improved ROM for dressing/ grooming 04/15/24: to C7 (painful) 05/14/24: T1 STG Duration 6 weeks Production Line Manager Goal (LTG) Pt will improve L shoulder ER apley scratch test to at least T2 in order to demonstrate improved ROM for dressing/ grooming 05/14/24: T1 LTG Duration 12 weeks PROGRESSING Two Impairment quickdash: 47.7% impairment Impairment . Short Term Goal (STG) Pt will decrease impairment score by 11% (1 MCID) in order to demonstrate improved symptom management and QOL 04/15/24: 555 impairment but pt did not fill out quickdash correctly 05/14/24: 35% impaired STG Duration 6 weeks MET Production Line Manager Goal (LTG) Pt will decrease impairment score to <20% in order to demonstrate improved symptom management and QOL 05/14/24: 35% impaired LTG Duration 12 weeks One Impairment ROM L flex and abd Impairment . Short Term Goal (STG) Pt will improve L shoulder flexion and abduction to at least 140 deg in order to demonstrate increased ROM for reaching 04/15/24: 144 deg flexion ( painful end range), 150 deg abduction (pain end range) 05/14/24: 150 deg flex, 160 deg abduction STG Duration 8 weeks MET Nursing Home Goal (LTG) Pt will improve L shoulder flexion and abduction to at least 160 deg in order to demonstrate increased ROM for reaching 05/14/24: 150 deg flexion, 160 deg abd; pain with end range LTG Duration 12 weeks PARTIALLY MET Assessment Summary Assessment Good tolerance for increased reps with activities and progression into rotator cuff strengthening with elevation. Continued with D2 flexion and ER with elevation in neutral. Pt attempts to compensate with trunk flex or extension; improved with tactile cueing for posture. Pt continues to have restrictions of her lat, which limits arm elevation. No pain in L shoulder at end of session. Pt would benefit from skilled PT for progressive L shoulder ROM and strengthening in order to improve ability to perform lifting/reaching activities with resistance e.g . lifting suitcase during travel. Physical Therapy Plan Frequency and Duration Frequency of Treatment 2x/Week Duration of treatment (weeks) 12 Plan of Care Start Date 03/11/24 Plan of Care End Date 06/05/24 Therapeutic Interventions Therapeutic Interventions Gait Training,Home Exercise Program,Joint Mobilizations, Manual Therapy,Neuromuscular Re-education,Orthotic/ Prosthetic Management,Patient/ Caregiver Education,Self-Care/ Home Management,Sensory Integration,Soft Tissue Mobilization,Taping, Therapeutic Activities, Therapeutic Exercises Modalities Cold Pack/Ice Massage,Electric Stimulation,Hot Packs, Ultrasound Other Referrals/Consults Referrals/Consults Recommended May benefit from referral to psych specialist to address continued pain with sleeping/ADLs if no further progression in next few weeks. Next Visit Focus/Plan Next Note Type Treatment Note Next Visit Plan PN 05/05. Trial end range GHJ mobilizations.Trial overhead stabilization. Trial Raises. Cont w/ manual: work into ADD/ IR, inf and post humeral glide joint mobilizations, soft tissue mobilization.
--- NOTE | 2024-06-03 09:00 | PT.OTN ---
Current Diagnoses Pain in left shoulder (06/03/24) Stiffness of left shoulder, not elsewhere classified (06/03/24) Weakness (06/03/24) Physical Therapy Treatment Note PT-OP-A Visit Information Start: 03/11/24 07:29 Freq: Status: Active Protocol: Document 06/03/24 08:19 NM (Rec: 06/03/24 08:59 NM [id number]) Out-Patient Physical Therapy Visit Information Visit Information Visit Type Treatment Note Visit Note KX required for all visits 09/07 post PN Access Code [id number] Visit Start Time 08:10 Visit Stop Time 08:59 Visit Number 15 Evaluation Information Evaluation Date 03/11/24 Precautions Precautions blood pressure and diabetes PT-OP-B Current Condition Start: 03/11/24 07:29 Freq: Status: Active Protocol: Document 03/11/24 08:18 NM (Rec: 03/11/24 09:01 NM [id number]) Current Condition History of Current Condition Onset Date November 2023 Current Complaints pain, mobility, strength History of Current Condition Pt presents with L shoulder pain, starting about 4 months ago since November. Pt had been moving boxes and woke up one morning with pain. She states that her pain has improved but still bothers her. She reports that she has pain with lifting (e.g. grocery bag), abduction, reaching overhead, waving, driving (tends to use L hand more, especially with cross body), holding steering wheel position, lifting or holding her cast iron hanson, and sleeping (better with body pillow) if lying on L side or if sleeping without hugging pillow. No hx of previous shoulder injuries, neck injuries. No numbness or tingling. States that long sitting activities make her L shoulder feel worse. Feels likes it catches when moving , does not dislocate or sublux Prior Treatments and Tests no previous imaging or treatment for L shoulder Treatment Goals Patient/Caregiver Goals make it stop hurting PT-OP-C Subjective Start: 03/11/24 07:29 Freq: Status: Active Protocol: Document 06/03/24 08:19 NM (Rec: 06/03/24 08:59 NM [id number]) OP-PT Subjective Patient Comments Patient Comments Pt reports no pain at rest. Still has anterior shoulder pain with abduction about 90 deg, same with elevation. Didn 't do a lot of exercise over vacation, did not lift a lot iwht arm on trip. Pt reports now getting pain with pressure over anterior shoulder. PT-OP-E Functional Tests Start: 03/11/24 07:29 Freq: Status: Active Protocol: Document 03/11/24 08:18 NM (Rec: 03/11/24 09:01 NM [id number]) Functional Tests Apley's Scratch Test Action 1- Left distal clavicle, painful Action 1- Right posterior cuff Action 2- Left base of occiput, painful Action 2- Right T2 Action 3- Left L5, painful Action 3- Right T10 PT-OP-F Manual Assessment Start: 03/11/24 07:29 Freq: Status: Active Protocol: Document 03/11/24 08:18 NM (Rec: 03/11/24 09:01 NM [id number]) Manual Assessments Soft Tissue Assessment Soft Tissue Mobility Assessment Restrictions of cervical paraspinals, rhomboids, lat Joint Mobility Assessment Joint Mobility Assessment Decreased humeral gliding posteriorly and inferiorly during both AROM and PROM, early scapular mobility during arm elevation and return PT-OP-J Posture/Palpation/Skin Start: 03/11/24 07:29 Freq: Status: Active Protocol: Document 03/11/24 08:18 NM (Rec: 03/11/24 12:58 NM [id number]) Posture Evaluation Position Standing Head/C-Spine Posture Forward Head Shoulder Posture (L) Forward,(R) Forward,(L) Elevated Scapula Posture (L) Elevated,(L) Tipped Palpation Assessment Location L shoulder Palpation Details tightness of periscapulars especially rhomboids and cervical paraspinals on L side no tenderness of long head biceps tendon, rotator cuff, AC joint PT-OP-K Range of Motion Start: 03/11/24 07:29 Freq: Status: Active Protocol: Document 05/14/24 07:26 NM (Rec: 05/14/24 07:27 NM [id number]) Shoulder Goniometric Range of Motion Shoulder Right Flexion 160 Extension 60 Abduction 160 External Rotation at 90 degrees 80 Abduction External Rotation at 0 degrees Abduction 60 Internal Rotation 80 Left Flexion 105 Extension 50 Abduction 160 External Rotation at 90 degrees 60 Abduction External Rotation at 0 degrees Abduction 60 Internal Rotation 50 Comments pain with all, IR worse and abd 04/06/24: 135 deg flex, 130 deg abd 05/14/24: 150 deg flex, 160 deg abd, T1 ER apley and 50 deg ER, T12 IR PT-OP-L Special Tests Start: 03/11/24 07:29 Freq: Status: Active Protocol: Document 03/11/24 08:18 NM (Rec: 03/11/24 09:01 NM [id number]) Special Tests Cervical Spine Special Tests Spurling's Test Test Results - Shoulder Special Tests Lift-Off Rotator Cuff Test Results + Comments painful with lift off but no limitation in strength Empty Can Test Results + Comments IR more painful than ER, both weak Passive ER Rotator Cuff Test Results - Neer Impingement Test Results + Tirado Amish Impingement Test Results + Elevation Impingement Test Results + PT-OP-M Strength Start: 03/11/24 07:29 Freq: Status: Active Protocol: Document 05/14/24 07:26 NM (Rec: 05/14/24 07:27 NM [id number]) Shoulder Strength Shoulder Manual Muscle Testing Right Flexion 4+ Good+ Abduction (C5) 4 Good External Rotation 4+ Good+ Internal Rotation 4 Good Horizontal Abduction 4+ Good+ Horizontal Adduction 4+ Good+ Left Flexion 4 Good Abduction (C5) 4 Good External Rotation 4 Good Internal Rotation 4 Good Horizontal Abduction 4 Good Horizontal Adduction 4 Good Comments pain with flex, abd, HADD 04/15/24: 4-/5 for all flex/abd , 4/5 ER/IR; mild pain w/ IR, flex, abd 05/14/24: 4/5 for all; mild pain with resisted abduction and ER PT-OP-Q Treatments Start: 03/11/24 07:29 Freq: Status: Active Protocol: Document 06/03/24 08:19 NM (Rec: 06/03/24 08:59 NM [id number]) Therapeutic Exercises Prone Exercises periscapular Prone Exercise Name T (45 deg abd), W, Y Side bilateral Resistance AROM Equipment Used 65 cm croatian ball, pillow under knees Reps/Minutes 2x8 ea Comments ROM modified for comfort; cued scap activation before lift Sidelying Exercises left shoulder AROM Sidelying Exercise Name 1. ER, 2. flex, 3. HABD Side left Resistance 1# db ER and HABD, 1# db> AROM for flex Equipment Used towel roll btwn body for ER Reps/Minutes 2x8 ea Comments cued scap setting prior to dec ant shldr pain; from neutral Standing Exercises Raises Standing Exercise Name scaption Side left Resistance 1# Reps/Minutes 2x8 Comments pain free; cued control w/ descent Manual Therapy Treatment Consent Patient gave verbal consent for manual Yes treatment Soft Tissue Mobilization L shoulder Body Location rhomboid, rotator cuff, lat, pec, subscapularis, UT, LS, biceps Mobilization Type Cross-Friction,Rolling, Sustained Pressure Intensity/Depth Moderate Body Position Sidelying Comments and hooklying Tenderness over anterior shoulder with pec and LH biceps rolling and cross friction Joint Mobilizations L scapulothoracic Direction adduction, retraction Grade III Body Position Sidelying Reps/Duration 10 ea L GHJ Direction PA, AP, lat, inf, post gap Grade III Body Position Hooklying Reps/Duration 6x30 ea Comments For end range mobilization. Bias into ER and IR with 45-90 deg abd. Monitored for pain. All performed with functional movements PT-OP-T Assessment and Plan Start: 03/11/24 07:29 Freq: Status: Active Protocol: Document 06/03/24 08:19 NM (Rec: 06/03/24 08:59 NM [id number]) Physical Therapy Assessment Goals Six Impairment strength flex/abd 3+/5 Short Term Goal (STG) Pt will improve L shoulder flexion and abduction strength to at least 4-/5 in order to demonstrate improved strength for reaching, lifting, ADLs 04/15/24: 4-/5 with ant shoulder pain STG Duration 8 weeks PROGRESSING [employer] Sp[employer] Goal (LTG) Pt will improve L shoulder flexion and abduction strength to at least 4/5 in order to demonstrate improved strength for reaching, lifting, ADLs 05/14/24: 4/5 flex and abd; mild pain with resisted abduction LTG Duration 12 weeks PARTIALLY MET Five Impairment strength ER/IR 4-/5 Short Term Goal (STG) Pt will improve L shoulder ER and IR strength to at least 4/ 5 MMT in order to demonstrate improved stabilization during reaching and lifting 04/15/24: 4/5 with ant shoulder pain STG Duration 6 weeks MET Halfway Goal (LTG) Pt will improve L shoulder ER and IR strength to at least 4+ /5 MMT in order to demonstrate improved stabilization during reaching and lifting 05/14/24: 4/5 ER and IR; mild pain with resisted ER LTG Duration 12 weeks PROGRESSING Four Impairment ROM IR apley Short Term Goal (STG) Pt will improve L shoulder IR apley scratch test to at least L1 in order to demonstrate improved ROM for dressing/ grooming 04/15/24: T10 with pain STG Duration 8 weeks MET Halfway Goal (LTG) Pt will improve L shoulder IR apley scratch test to at least T10 in order to demonstrate improved ROM for dressing/ grooming 04/15/24: T10 with pain 05/14/24: T12 with pain LTG Duration 12 weeks PROGRESSING Three Impairment ROM ER apley Short Term Goal (STG) Pt will improve L shoulder ER apley scratch test to at least C7 in order to demonstrate improved ROM for dressing/ grooming 04/15/24: to C7 (painful) 05/14/24: T1 STG Duration 6 weeks Halfway Goal (LTG) Pt will improve L shoulder ER apley scratch test to at least T2 in order to demonstrate improved ROM for dressing/ grooming 05/14/24: T1 LTG Duration 12 weeks PROGRESSING Two Impairment quickdash: 47.7% impairment Impairment . Short Term Goal (STG) Pt will decrease impairment score by 11% (1 MCID) in order to demonstrate improved symptom management and QOL 04/15/24: 555 impairment but pt did not fill out quickdash correctly 05/14/24: 35% impaired STG Duration 6 weeks MET Halfway Goal (LTG) Pt will decrease impairment score to <20% in order to demonstrate improved symptom management and QOL 05/14/24: 35% impaired LTG Duration 12 weeks One Impairment ROM L flex and abd Impairment . Short Term Goal (STG) Pt will improve L shoulder flexion and abduction to at least 140 deg in order to demonstrate increased ROM for reaching 04/15/24: 144 deg flexion ( painful end range), 150 deg abduction (pain end range) 05/14/24: 150 deg flex, 160 deg abduction STG Duration 8 weeks MET [employer] Sp[employer] Goal (LTG) Pt will improve L shoulder flexion and abduction to at least 160 deg in order to demonstrate increased ROM for reaching 05/14/24: 150 deg flexion, 160 deg abd; pain with end range LTG Duration 12 weeks PARTIALLY MET Assessment Summary Assessment Continues to have anterior shoulder pain with abduction at 120 deg. However, pt L shoulder AROM improved to 160 deg flex, 155 deg abd. Trialed anterior glides for improved capsular mobility. Unable to progress to resisted sidelying flexion but able to do ER and HABD with 1# weight. Continues to demonstrate periscapular weakness during overhead mobility and decreased scapular control without cueing. Good feedback for raises, no increased pain especially anteriorly. PT and pt plan to discuss plan of care at next session for maintenance vs intermittent monitoring of strength progressions. Physical Therapy Plan Frequency and Duration Frequency of Treatment 2x/Week Duration of treatment (weeks) 12 Plan of Care Start Date 03/11/24 Plan of Care End Date 06/05/24 Therapeutic Interventions Therapeutic Interventions Gait Training,Home Exercise Program,Joint Mobilizations, Manual Therapy,Neuromuscular Re-education,Orthotic/ Prosthetic Management,Patient/ Caregiver Education,Self-Care/ Home Management,Sensory Integration,Soft Tissue Mobilization,Taping, Therapeutic Activities, Therapeutic Exercises Modalities Cold Pack/Ice Massage,Electric Stimulation,Hot Packs, Ultrasound Other Referrals/Consults Referrals/Consults Recommended May benefit from referral to allergy and immunology specialist to address continued pain with sleeping/ADLs if no further progression in next few weeks. Next Visit Focus/Plan Next Note Type Progress Note Next Visit Plan Trial end range GHJ mobilizations.Trial overhead stabilization. Assess urbano to raises. Review/condense. Cont w/ manual: work into ADD/ IR, inf and post humeral glide joint mobilizations, soft tissue mobilization.
--- NOTE | 2024-06-05 09:25 | PT.OTN ---
Current Diagnoses Pain in left shoulder (06/05/24) Stiffness of left shoulder, not elsewhere classified (06/05/24) Weakness (06/05/24) Physical Therapy Treatment Note PT-OP-A Visit Information Start: 03/11/24 07:29 Freq: Status: Active Protocol: Document 06/05/24 08:17 NM (Rec: 06/05/24 09:24 NM [id number]) Out-Patient Physical Therapy Visit Information Visit Information Visit Type Progress Note Visit Note KX required for all visits Access Code [email or web address] Visit Start Time 08:17 Visit Stop Time 09:00 Visit Number 16 Evaluation Information Evaluation Date 03/11/24 Precautions Precautions blood pressure and diabetes PT-OP-B Current Condition Start: 03/11/24 07:29 Freq: Status: Active Protocol: Document 03/11/24 08:18 NM (Rec: 03/11/24 09:01 NM [id number]) Current Condition History of Current Condition Onset Date November 2023 Current Complaints pain, mobility, strength History of Current Condition Pt presents with L shoulder pain, starting about 4 months ago since November. Pt had been moving boxes and woke up one morning with pain. She states that her pain has improved but still bothers her. She reports that she has pain with lifting (e.g. grocery bag), abduction, reaching overhead, waving, driving (tends to use L hand more, especially with cross body), holding steering wheel position, lifting or holding her cast iron hanson, and sleeping (better with body pillow) if lying on L side or if sleeping without hugging pillow. No hx of previous shoulder injuries, neck injuries. No numbness or tingling. States that long sitting activities make her L shoulder feel worse. Feels likes it catches when moving , does not dislocate or sublux Prior Treatments and Tests no previous imaging or treatment for L shoulder Treatment Goals Patient/Caregiver Goals make it stop hurting PT-OP-C Subjective Start: 03/11/24 07:29 Freq: Status: Active Protocol: Document 06/05/24 08:17 NM (Rec: 06/05/24 09:24 NM [id number]) OP-PT Subjective Patient Comments Patient Comments Pt reports felt really good after last session. States that her shoulder is doing well, especially after ball exercise and raises. Pt reports that her her shoulder has felt better overall, still reports that she has the occasional stiffness. Hardly woke up at all. She is still improving with her pain management. Reports 0/10 at rest L shoulder, 1/10 with movement. She is wanting to continue with PT for continued strengthening. She reports that she is still unable to lift anything of significant weight (e.g. cast iron skillet) alone with L hand, uncomfortable with lifting heavy tote bag or grocery bags . Difficulty with lifting using LUE from floor, midheight or overhead ht. However, pt and PT discussed discharge from PT today vs extending plan of care; both agree to be done with PT today as pt is progressing well, has met goals and is working toward strengthening at home PT-OP-E Functional Tests Start: 03/11/24 07:29 Freq: Status: Active Protocol: Document 03/11/24 08:18 NM (Rec: 03/11/24 09:01 NM [id number]) Functional Tests Apley's Scratch Test Action 1- Left distal clavicle, painful Action 1- Right posterior cuff Action 2- Left base of occiput, painful Action 2- Right T2 Action 3- Left L5, painful Action 3- Right T10 PT-OP-F Manual Assessment Start: 03/11/24 07:29 Freq: Status: Active Protocol: Document 03/11/24 08:18 NM (Rec: 03/11/24 09:01 NM [id number]) Manual Assessments Soft Tissue Assessment Soft Tissue Mobility Assessment Restrictions of cervical paraspinals, rhomboids, lat Joint Mobility Assessment Joint Mobility Assessment Decreased humeral gliding posteriorly and inferiorly during both AROM and PROM, early scapular mobility during arm elevation and return PT-OP-J Posture/Palpation/Skin Start: 03/11/24 07:29 Freq: Status: Active Protocol: Document 03/11/24 08:18 NM (Rec: 03/11/24 12:58 NM [id number]) Posture Evaluation Position Standing Head/C-Spine Posture Forward Head Shoulder Posture (L) Forward,(R) Forward,(L) Elevated Scapula Posture (L) Elevated,(L) Tipped Palpation Assessment Location L shoulder Palpation Details tightness of periscapulars especially rhomboids and cervical paraspinals on L side no tenderness of long head biceps tendon, rotator cuff, AC joint PT-OP-K Range of Motion Start: 03/11/24 07:29 Freq: Status: Active Protocol: Document 06/05/24 08:17 NM (Rec: 06/05/24 09:24 NM [id number]) Shoulder Goniometric Range of Motion Shoulder Right Flexion 160 Extension 60 Abduction 160 External Rotation at 90 degrees 80 Abduction External Rotation at 0 degrees Abduction 60 Internal Rotation 80 Left Flexion 165 Extension 50 Abduction 165 External Rotation at 90 degrees 60 Abduction External Rotation at 0 degrees Abduction 60 Internal Rotation 50 Comments pain with all, IR worse and abd 04/06/24: 135 deg flex, 130 deg abd 05/14/24: 150 deg flex, 160 deg abd, T1 ER apley and 50 deg ER, T12 IR 06/05/24: 165 deg flex and abd PT-OP-L Special Tests Start: 03/11/24 07:29 Freq: Status: Active Protocol: Document 03/11/24 08:18 NM (Rec: 03/11/24 09:01 NM [id number]) Special Tests Cervical Spine Special Tests Spurling's Test Test Results - Shoulder Special Tests Lift-Off Rotator Cuff Test Results + Comments painful with lift off but no limitation in strength Empty Can Test Results + Comments IR more painful than ER, both weak Passive ER Rotator Cuff Test Results - Neer Impingement Test Results + [place] [employer] Impingement Test Results + Elevation Impingement Test Results + PT-OP-M Strength Start: 03/11/24 07:29 Freq: Status: Active Protocol: Document 06/05/24 08:17 NM (Rec: 06/05/24 09:24 NM [id number]) Shoulder Strength Shoulder Manual Muscle Testing Right Flexion 4+ Good+ Abduction (C5) 4 Good External Rotation 4+ Good+ Internal Rotation 4 Good Horizontal Abduction 4+ Good+ Horizontal Adduction 4+ Good+ Left Flexion 4 Good Abduction (C5) 4 Good External Rotation 4 Good Internal Rotation 4 Good Horizontal Abduction 4 Good Horizontal Adduction 4 Good Comments pain with flex, abd, HADD 04/15/24: 4-/5 for all flex/abd , 4/5 ER/IR; mild pain w/ IR, flex, abd 05/14/24: 4/5 for all; mild pain with resisted abduction and ER 06/05/24: 4/5, no pain PT-OP-Q Treatments Start: 03/11/24 07:29 Freq: Status: Active Protocol: Document 06/05/24 08:17 NM (Rec: 06/05/24 09:24 NM [id number]) Therapeutic Exercises Prone Exercises periscapular Prone Exercise Name HEP-T (90 deg abd), W, Y, row w/ 1# Side bilateral Resistance AROM Equipment Used 65 cm hong konger ball, pillow under knees Reps/Minutes 2x10 ea Comments cued scap activation before lift, control entire ROM Standing Exercises Raises Standing Exercise Name HEP- 1. scaption, 2. lateral raises Side left Resistance 1# Reps/Minutes 2x10 ea Comments pain free; cued for posture and stacking hips/shoulders statue [employer] Standing Exercise Name rhythmic stabilization overhead at 90/90 position Side left Resistance yellow therabr Reps/Minutes 30 Comments challenging serratus anterior Standing Exercise Name ball circles w/ protraction Side left Reps/Minutes 10 CW, 10 CCW Comments pain free Manual Therapy Treatment Consent Patient gave verbal consent for manual Yes treatment Soft Tissue Mobilization L shoulder Body Location rhomboid, rotator cuff, lat, pec, subscapularis, UT, LS, biceps Mobilization Type Cross-Friction,Rolling, Sustained Pressure Intensity/Depth Moderate Body Position Hooklying Comments Tenderness over anterior shoulder with pec and LH biceps rolling and cross friction Joint Mobilizations L scapulothoracic Direction adduction, retraction Grade III Body Position Sidelying Reps/Duration 10 ea L GHJ Direction PA, AP, lat, inf, post gap Grade III Body Position Hooklying Reps/Duration 2x30 ea Comments For end range mobilization. Bias into ER and IR with 45-90 deg abd. Monitored for pain. All performed with functional movements, good feedback for mobility PT-OP-T Assessment and Plan Start: 03/11/24 07:29 Freq: Status: Active Protocol: Document 06/05/24 08:17 NM (Rec: 06/05/24 09:24 NM [id number]) Physical Therapy Assessment Goals Six Impairment strength flex/abd 3+/5 Short Term Goal (STG) Pt will improve L shoulder flexion and abduction strength to at least 4-/5 in order to demonstrate improved strength for reaching, lifting, ADLs 04/15/24: 4-/5 with ant shoulder pain STG Duration 8 weeks PROGRESSING Jail Goal (LTG) Pt will improve L shoulder flexion and abduction strength to at least 4/5 in order to demonstrate improved strength for reaching, lifting, ADLs 05/14/24: 4/5 flex and abd; mild pain with resisted abduction 06/05/24: 4/5 LTG Duration 12 weeks MET Five Impairment strength ER/IR 4-/5 Short Term Goal (STG) Pt will improve L shoulder ER and IR strength to at least 4/ 5 MMT in order to demonstrate improved stabilization during reaching and lifting 04/15/24: 4/5 with ant shoulder pain STG Duration 6 weeks MET Jail Goal (LTG) Pt will improve L shoulder ER and IR strength to at least 4+ /5 MMT in order to demonstrate improved stabilization during reaching and lifting 05/14/24: 4/5 ER and IR; mild pain with resisted ER 06/05/24: 4/5 ER/IR w/o pain; issued HEP to address remaining strength deficits LTG Duration 12 weeks NOT MET Four Impairment ROM IR apley Short Term Goal (STG) Pt will improve L shoulder IR apley scratch test to at least L1 in order to demonstrate improved ROM for dressing/ grooming 04/15/24: T10 with pain STG Duration 8 weeks MET Jail Goal (LTG) Pt will improve L shoulder IR apley scratch test to at least T10 in order to demonstrate improved ROM for dressing/ grooming 04/15/24: T10 with pain 05/14/24: T12 with pain 06/05/24: T8 LTG Duration 12 weeks MET Three Impairment ROM ER apley Short Term Goal (STG) Pt will improve L shoulder ER apley scratch test to at least C7 in order to demonstrate improved ROM for dressing/ grooming 04/15/24: to C7 (painful) 05/14/24: T1 STG Duration 6 weeks Jail Goal (LTG) Pt will improve L shoulder ER apley scratch test to at least T2 in order to demonstrate improved ROM for dressing/ grooming 05/14/24: T1 06/05/24: T4 LTG Duration 12 weeks MET Two Impairment quickdash: 47.7% impairment Impairment . Short Term Goal (STG) Pt will decrease impairment score by 11% (1 MCID) in order to demonstrate improved symptom management and QOL 04/15/24: 55% impairment but pt did not fill out quickdash correctly 05/14/24: 35% impaired STG Duration 6 weeks MET Jail Goal (LTG) Pt will decrease impairment score to <20% in order to demonstrate improved symptom management and QOL 05/14/24: 35% impaired 06/05/24: 18.2% impaired LTG Duration 12 weeks MET One Impairment ROM L flex and abd Impairment . Short Term Goal (STG) Pt will improve L shoulder flexion and abduction to at least 140 deg in order to demonstrate increased ROM for reaching 04/15/24: 144 deg flexion ( painful end range), 150 deg abduction (pain end range) 05/14/24: 150 deg flex, 160 deg abduction STG Duration 8 weeks MET Pie Maker Machine Goal (LTG) Pt will improve L shoulder flexion and abduction to at least 160 deg in order to demonstrate increased ROM for reaching 05/14/24: 150 deg flexion, 160 deg abd; pain with end range 06/05/24: 165 deg flex and abd LTG Duration 12 weeks MET Progress Towards Goals Progress Towards Goals Progressing Toward Goals,Goals Met Progress Comments Goals met except for IR/ER strength goals. Pain with lifting. Final goal updated to improve ability to lift groceries and pans for cooking Assessment Summary Assessment Pt continues to respond well to strengthening. Has 165 deg of L shoulder flex and abd AROM at start of session. Good feedback to hong konger ball prone periscapular; able to progress up to full ROM for all and progress to low level resistance for rows. Intermittent cues needed for scapular control prior to lifting in addition to reseting contraction between reps; improved with less cueing in future reps. Pt able to progress to overhead stabilization and front/ lateral raises without issue. PT and pt discussed discharge today as at end of plan of care; both in agreement. Remainder of session creating maintenance program and condensing HEP. Physical Therapy Plan Frequency and Duration Frequency of Treatment 2x/Week Duration of treatment (weeks) 12 Plan of Care Start Date 03/11/24 Plan of Care End Date 06/05/24 Therapeutic Interventions Therapeutic Interventions Gait Training,Home Exercise Program,Joint Mobilizations, Manual Therapy,Neuromuscular Re-education,Orthotic/ Prosthetic Management,Patient/ Caregiver Education,Self-Care/ Home Management,Sensory Integration,Soft Tissue Mobilization,Taping, Therapeutic Activities, Therapeutic Exercises Modalities Cold Pack/Ice Massage,Electric Stimulation,Hot Packs, Ultrasound Other Referrals/Consults Referrals/Consults Recommended May benefit from referral to [facility] to address continued pain with sleeping/ADLs if no further progression in next few weeks. Discharge Physical Therapy Discharge Reasons Goals Met Discharge Comments Pt has met all goals except for 1 strength goal. Pt and PT discussed discharge today vs extending plan of care. Pt requesting to discharge from PT to maintenance program for strengthening. Issued maintenance program with band progressions 3x/wk Next Visit Focus/Plan Next Visit Plan discharge from PT
== END 2024-06-19 11:02 | disposition home or self-care (01) ==
LOC: PHYS 08:15
PROVIDERS: Family Provider Family Medicine Geriatric Medicine; PCP Family Medicine; Referring Provider Family Medicine; Visit Provider Family Medicine
DX: M25.512 Pain in left shoulder (principal); M25.612 Stiffness of left shoulder, not elsewhere classified; R53.1 Weakness
CPT/HCPCS: 97110; 97116; 97140; 97161

== ENCOUNTER → 2024-07-08 08:13 | Outpatient (CLI) | payer MEDICARE, OTHER, SELFPAY ==
--- NOTE | 2024-07-08 08:15 | DI.MG.S_ITS ---
BILATERAL DIGITAL SCREENING MAMMOGRAM 3D/2D WITH CAD: 07/08/2024 CLINICAL: Routine screening. Family history of breast cancer. Comparison is made to exams dated: 07/05/2023 mammogram - [facility], 11/05/2017 mammogram, and 10/27/2013 mammogram - [facility]. The breasts are heterogeneously dense, which may obscure small masses (category c / 51-75% glandular tissue). Current study was also evaluated with a Computer Aided Detection (CAD) system. No significant masses, calcifications, or other findings are seen in either breast. There has been no significant interval change. IMPRESSION: NEGATIVE There is no mammographic evidence of malignancy. A 1 year screening mammogram is recommended. Based on the Tyrer Cuzick model (a risk assessment model) the patient's lifetime risk is 7.6% and her 10 year risk is 3.7%. According to the ACR, ACS, and NCCN guidelines, an annual breast MRI exam along with mammogram is recommended if the patient's lifetime risk is 20% or greater. This exam was interpreted at Station ID: [id number]. NOTE: For mammograms, a report in lay terms will be sent to the patient. Approximately 15% of breast malignancies will not be visualized mammographically. In the management of a palpable breast mass, a negative mammogram must not discourage biopsy of a clinically suspicious lesion. Electronically Signed By: Jaida atkinson/[email or web address]:07/08/2024 10:20:48 letter sent: Normal Exam ACR BI-RADS Category 1: Negative
[2024-07-08 10:07] LABS: Hemoglobin A1C% w Est Avg Glu 5.4 % (4.0-6.0)
== END ==
PROVIDERS: Family Provider Family Medicine Geriatric Medicine; PCP Family Medicine; Referring Provider Family Medicine; Visit Provider Family Medicine
DX: Z12.31 Encounter for screening mammogram for malignant neoplasm of breast (principal); Z80.3 Family history of malignant neoplasm of breast; R92.333 Mammographic heterogeneous density, bilateral breasts; R73.01 Impaired fasting glucose
CPT/HCPCS: 36415; 77063; 77067; 83036

== ENCOUNTER → 2025-05-07 13:30 | Outpatient (CLI) | payer MEDICARE, OTHER, SELFPAY ==
[2025-05-07 14:25] LABS: Hemoglobin A1C% w Est Avg Glu 5.7 % (4.0-6.0)
[2025-05-07 15:16] LABS: Alanine Aminotransferase 40 IU/L (<35); Albumin 4.6 g/dL (3.5-5.0); Albumin Globulin Ratio 1.6 (1.0-2.8); Alkaline Phosphatase 80 U/L (38-126); Blood Urea Nitrogen 19 mg/dL (7-17); Calcium 9.4 mg/dL (8.4-10.2); Carbon Dioxide 28 mmol/L (22-32); Chloride 98 mmol/L (98-107); Cholesterol 200 mg/dL (140-199); Estimated Glomerular Filt Rate > 60 mL/min (>60); Globulin 2.8 g/dL (1.7-4.1); Glucose 94 mg/dL (70-99); HDL Cholesterol 59 mg/dL (40-60); HEMOLYSIS < 15 (0-50); Potassium 3.8 mmol/L (3.4-5.1); Sodium 135 mmol/L (137-145); Total Protein 7.4 g/dL (6.3-8.2); Triglycerides 157 mg/dL (35-150)
== END ==
PROVIDERS: Family Provider Family Medicine Geriatric Medicine; PCP Family Medicine; Referring Provider Family Medicine; Visit Provider Family Medicine
DX: R73.01 Impaired fasting glucose (principal); E66.9 Obesity, unspecified; I10 Essential (primary) hypertension
CPT/HCPCS: 36415; 80053; 80061; 83036

== ENCOUNTER → 2025-05-10 10:27 | Outpatient (CLI) | payer MEDICARE, OTHER, SELFPAY | PROVIDERS: Family Provider Family Medicine Geriatric Medicine; PCP Family Medicine; Referring Provider Family Medicine; Visit Provider Family Medicine | DX: Z00.00 Encounter for general adult medical examination without abnormal findings (principal) | CPT/HCPCS: 82274 ==